=== PATIENT | male | born 1965 | race Caucasian/White ===

== ENCOUNTER → 2017-01-18 | Outpatient (CLI) | payer BC ==
[~2017-01-18] MED LIST: AMLO2.5T PO; ASPI81TA28 PO; ATV5 PO; CRS/10 PO; FLUO20CA35 PO; GABA-113 PO; LISI20TA3 PO; LORA-741 PO; LSN40 PO; METH1TAB81 PO; NTRGSL/4 UT; PANT40TA PO; PRAS1TAB6 PO; TPRSR25 PO; TRAM-10 PO
--- NOTE | 2017-01-18 09:38 | DIAGNOSTIC IMAGING REPORT ---
TESTICULAR ULTRASOUND HISTORY: Pain RIGHT TESTICULAR PAIN COMPARISON: None. FINDINGS: Right testis: Maximum dimension 4.1 cm. Normal vascular flow. Several small epididymal cyst. Left testis: Maximum dimension 3.9 cm. Normal vascular flow. Several small epididymal cyst. IMPRESSION: Normal testicular ultrasound. Electronically signed by: Ankit Hill M.D. 01/18/2017 9:37 AM Dictated Date/Time: 01/18/2017 9:36 AM
== END | disposition home or self-care (01) ==
LOC: C.ULTRBC 09:06
PROVIDERS: ATTEND Family Medicine
DX: N50.811 Right testicular pain (principal)

== ENCOUNTER 2017-04-14 22:52 | Emergency (ER) | payer BC ==
[~2017-04-14] VITALS: Ht 167.6 cm; Wt 79.6 kg
[~2017-04-14 22:52] MED LIST changes: -AMLO2.5T PO; -CRS/10 PO; -LORA-741 PO; -LSN40 PO; -METH1TAB81 PO; -NTRGSL/4 UT; -PANT40TA PO; -TRAM-10 PO
[2017-04-14 23:03] VITALS: TEMP 36.7; Ht 167.6 cm; Wt 79.6 kg
[2017-04-14] MEDS ORDERED: KETOROLAC TROMETHAMINE 30 MG/ML VIAL IV STA (23:27)
[2017-04-14] MEDS ORDERED: HYDROmorphone INJ 1 MG/ML SYR IV STA (23:27)
--- NOTE | 2017-04-14 23:32 | EMERGENCY ROOM VISIT NOTE ---
History Report prepared by Cosme: Silvina Matias Under the Supervision of: Dr. Lina Blancas D.O. First contact with patient: 23:09 Chief Complaint: BACK PAIN Stated Complaint: PAIN IN LOWER RIGHT BACK/KIDNEY History of Present Illness The patient is a 51 year old male who presents to the Emergency Room with complaints of right lower back pain starting 4 days ago and worsening tonight. He rates a pain intensity of 8-9/10. He has worsening pain with certain positions and with palpation. He has some pain relief with lying down flat. He notes pain radiation to the testicles. He had similar pain last week and he was found to have cysts in his testicles through ultrasound but the ultrasound was otherwise normal. He has been taking Tramadol and Lorazepam with some relief. Tonight, he started having some tingling in his right leg. He has a history of sciatica but denies any similar symptoms. He has a history of herniated discs in the back and coronary artery stents. He did some yard work over the weekend but denies any injuries. He denies nausea, vomiting, urinary symptoms, trouble with bowel movements, or any other complaints. Source of History: patient Onset: 4 days ago Position: back (lower) Symptom Intensity: 8-9/10 Timing: worsening Modifying Factors (Worsening): other (certain positions and palpation) Modifying Factors (Relieving): other (lying down flat; Tramadol and Lorazepam with some relief) Associated Symptoms: No nausea, No urinary symptoms, No vomiting Review of Systems See HPI for pertinent positives & negatives. A total of 10 systems reviewed and were otherwise negative. Past Medical & Surgical Medical Problems: (1) Chest pain (2) Elevated lipase (3) Heart disease (4) Herniated cervical disc (5) Herniated disc (6) HTN (hypertension) (7) Pharyngitis (8) Radiculopathy Surgical Problems: (1) History of heart artery stent Family History Cancer Diabetes mellitus Heart disease Hypertension Social History Smoking Status: Never Smoker Marital Status: Housing Status: lives with family Occupation Status: employed Current/Historical Medications Scheduled Amlodipine (Norvasc), 2.5 MG PO HS Aspirin (Aspirin Ec), 81 MG PO QAM Fluoxetine (Prozac), 20 MG PO HS Lisinopril (Lisinopril), 40 MG PO HS Methylprednisolone (Medrol), 4 MG PO HS Pantoprazole (Protonix), 40 MG PO QAM Rosuvastatin Calcium (Crestor), 10 MG PO HS Scheduled PRN Lorazepam (Ativan), 0.5 MG PO BID PRN for Anxiety/Agitation Nitroglycerin (Nitrostat), 0.4 MG UT PRN PRN for Chest Pain Tramadol (Ultram), 50 MG PO Q6H PRN for Pain Allergies Coded Allergies: Penicillins (Verified Allergy, Intermediate, RASH;HIVES, 04/14/17) Sulfa Drugs (Verified Allergy, Intermediate, RASH;HIVES, 04/14/17) Physical Exam Vital Signs Date Time Temp Pulse Resp B/P Pulse Ox O2 Delivery O2 Flow Rate FiO2 04/15/17 01:05 68 18 132/90 95 Room Air 04/14/17 23:03 36.7 66 18 149/98 96 Room Air Physical Exam General: Appears uncomfortable on exam. HEENT: Head - normocephalic and atraumatic Pupils are equal, round, and reactive to light. Extraocular eye muscles are intact, and sclera are anicteric. Nose - moist nasal mucosa without discharge. Mouth - moist buccal mucosa. Oropharynx is nonerythematous and there is no tonsillar exudate or edema noted. Neck: Supple; no JVD, nuchal rigidity, cervical lymphadenopathy. Heart: Regular rate and rhythm. There is a normal S1 and S2 with no murmurs, clicks, or gallops appreciated. Lungs: Clear to auscultation bilaterally with no wheezes, rales, or rhonchi. Abdomen: Soft, pain to palpation in the right lower quadrant and right inguinal canal, nondistended, with good bowel sounds. There are no palpable pulsatile masses or hepatosplenomegaly. There is no guarding, rigidity, or rebound noted. Back: Exquisite tenderness with light touch over his right flank, right CVA, and right piriformis muscle. Extremities: No evidence of cyanosis, clubbing, or edema. There are easily palpable peripheral pulses. Skin: warm and dry with good turgor and no rashes. Medical Decision & Procedures Laboratory Results Test 04/14/17 23:20 Urine Color YELLOW Urine Appearance CLEAR (CLEAR) Urine pH 5.0 (4.5-7.5) Urine Specific Gordon 1.032 (1.000-1.030) Urine Protein NEG (NEG) Urine Glucose (UA) NEG (NEG) Urine Ketones NEG (NEG) Urine Occult Blood TRACE (NEG) Urine Nitrite NEG (NEG) Urine Bilirubin NEG (NEG) Urine Urobilinogen NEG (NEG) Urine Leukocyte Esterase NEG (NEG) Urine WBC (Auto) 1-5 /hpf (0-5) Urine RBC (Auto) 0-4 /hpf (0-4) Urine Hyaline Casts (Auto) 1-5 /lpf (0-5) Urine Epithelial Cells (Auto) 5-10 /lpf (0-5) Urine Bacteria (Auto) NEG (NEG) Laboratory results per my review. Medications Administered Medications (Trade) Dose Ordered Sig/Arya Route Start Time Stop Time Status Last Admin Dose Admin Ketorolac Tromethamine (Toradol Inj) 30 mg NOW STAT IV 04/14/17 23:27 04/14/17 23:28 DC 04/14/17 23:37 30 MG Hydromorphone HCl (Dilaudid Inj) 1 mg NOW STAT IV 04/14/17 23:27 04/14/17 23:28 DC 04/14/17 23:37 1 MG Procedure Dilaudid Inj 1 mg IV, Toradol Inj 30 mg IV ED Course 2309: Past medical records reviewed. The patient was evaluated in room B05. A complete history and physical exam was performed. A urine specimen was collected. 2327: Dilaudid Inj 1 mg IV, Toradol Inj 30 mg IV 0010: I reevaluated the patient who feels much better after the Dilaudid and Toradol. He will perform an ambulatory trial. 0024: Upon reevaluation, the patient is resting comfortably. He successfully performed the ambulatory trial. I discussed findings and results with the patient. He verbalized agreement of the treatment plan. He was discharged home. Medical Decision This is a 51 year old patient who presents to the Emergency Room with complaints of right lower back pain. Differential diagnosis includes but is not limited to pyelonephritis, ureteral colic, sciatica, lumbar radiculopathy, low back strain. Urinalysis showed trace blood, no red blood cells, 5-10 epithelial cells, no signs of infection. The patient had no hematuria to suggest a kidney stone. The patient's discomfort was thought to be secondary to musculoskeletal pain as he had easily reproducible pain with even light palpation. The patient does admit that he was doing yard work before the pain started. I suggested that he rest and use NSAIDs over the next 2 days with a full stomach. If the pain persists, he will need follow-up with his PCP. Impression Primary Impression: Right low back pain Scribe Attestation The scribe's documentation has been prepared under my direction and personally reviewed by me in its entirety. I confirm that the note above accurately reflects all work, treatment, procedures, and medical decision making performed by me. Departure Information Dispostion Home / Self-Care Referrals Wale Aguayo D.O. (PCP) Forms HOME CARE DOCUMENTATION FORM, IMPORTANT VISIT INFORMATION Patient Instructions Low Back Pain Self Care, [facility] Additional Instructions Rest. Do not lift greater than 5 pounds. Ibuprofen - 600mg kingsley 6 hours with food for 1-2 days. Continue tramadol as directed. If pain persists, follow up with PCP. Problem Qualifiers Primary Impression: Right low back pain Chronicity: acute Sciatica presence: with sciatica Sciatica laterality: sciatica of right side Qualified Codes: M54.41 - Lumbago with sciatica, right side
[2017-04-14] MEDS ORDERED: LORA-741 PO (23:37)
[2017-04-14] MEDS ORDERED: CRS/10 PO (23:37)
[2017-04-14] MEDS ORDERED: METH1TAB81 PO (23:37)
[2017-04-14] MEDS ORDERED: LSN40 PO (23:37)
[2017-04-14] MEDS ORDERED: TRAM-10 PO (23:37)
[2017-04-14] MEDS ORDERED: PANT40TA PO (23:37)
[2017-04-14] MEDS ORDERED: AMLO2.5T PO (23:37)
[2017-04-14] MEDS ORDERED: NTRGSL/4 UT (23:37)
[2017-04-14 23:40] LABS: URINE APPEARANCE CLEAR (CLEAR); URINE BILIRUBIN NEG (NEG); URINE COLOR YELLOW; URINE NITRITE NEG (NEG); URINE SPECIFIC GRAVITY 1.032 (1.000-1.030); UROBILINOGEN NEG (NEG)
[2017-04-14 23:48] LABS: MANUAL MICROSCOPIC REQUIRED? NO; REVIEW REQ? NO
[2017-04-15 01:05] VITALS: BP 132/90; PULSE 68; O2SAT 95
== END 2017-04-15 01:05 | disposition home or self-care (01) ==
LOC: C.EDB 22:53
DX: M54.41 Lumbago with sciatica, right side (principal); Z95.5 Presence of coronary angioplasty implant and graft; I10 Essential (primary) hypertension; Z80.9 Family history of malignant neoplasm, unspecified; Z83.3 Family history of diabetes mellitus; Z82.49 Family history of ischemic heart disease and other diseases of the circulatory system; Z79.82 Long term (current) use of aspirin; Z79.899 Other long term (current) drug therapy

== ENCOUNTER 2018-01-30 17:06 | Inpatient (IN) | payer BC ==
[2018-01-30] VITALS (12 sets, daily range): BP systolic 114–142; BP diastolic 80–99; PULSE 51–71; TEMP 36.5; O2SAT 93–99; Ht 170.2 cm; Wt 81.6 kg
[~2018-01-30] VITALS: Ht 170.2 cm; Wt 81.6 kg
[~2018-01-30 17:06] MED LIST changes: +AMLO2.5T PO; -ATV5 PO; +CRS/10 PO; -GABA-113 PO; -LISI20TA3 PO; +LORA-741 PO; +METH1TAB81 PO; +PANT40TA PO; -PRAS1TAB6 PO; -TPRSR25 PO; +TRAM-10 PO
[2018-01-30] MEDS ORDERED: ASPIRIN 81 MG CHEW PO STA (17:36)
[2018-01-30] MEDS ORDERED: ONDANSETRON INJ 2 MG/ML 2 ML VIAL IV STA (17:36)
[2018-01-30] MEDS ORDERED: SODIUM CHLORIDE 0.9% 1000ML 1,000 ML IV STA (17:36)
[2018-01-30] MEDS ORDERED: MoRPHine SULFATE 4 MG/ML 1 ML CARP\\VIAL IV PRN (17:45)
[2018-01-30] MEDS ORDERED: NITROGLYCERIN 0.4 MG SL PER TAB CHARGE SL PRN ×2 (17:45→19:30)
--- NOTE | 2018-01-30 17:45 | EMERGENCY ROOM VISIT NOTE ---
History Report prepared by Cosme: Jeanine Khan Under the Supervision of: Dr. Stephon Macdonald D.O. First contact with patient: 17:25 Chief Complaint: CHEST PAIN Stated Complaint: CHEST PAINS Nursing Triage Summary: pt reports midsternal cp that started about 40 min ago denies radiation of pain. pt took nitro X 2 with no jeter in chest pressure . pt to Dr Funk and sent here for futher eval History of Present Illness The patient is a 52 year old male who presents to the Emergency Room with complaints of constant chest pain that began two hours ago. He states that he was sitting at his desk when the chest pain began. He notes the pain is still present. He currently rates his pain an 8/10 in severity. He took two nitroglycerin. It has been 25 minutes since he has taken the last dose of nitroglycerin. He currently rates his pain an 8/10 in severity. He states there is nothing that makes the chest pain better. He took Aspirin last night. He notes a headache and arm weakness. He denies any shortness of breath, leg pain, or leg swelling. He had a cardiac catheterization and cardiac stents four years ago. The last time he has taken nitroglycerin was two years ago. He was seen by his PCP today and had an ECG that appeared abnormal, so he was advised to come the ED for evaluation. He is allergic to Penicillin and Sulfa. He denies any tobacco or alcohol use. He denies any recent travels, hospitalizations, or injuries. Source of History: patient Onset: two hours ago Position: chest Symptom Intensity: 8/10 Timing: constant Associated Symptoms: + headache, + weakness (arm), No SOB Note: He denies any leg pain or swelling. Review of Systems See HPI for pertinent positives & negatives. A total of 10 systems reviewed and were otherwise negative. Past Medical & Surgical Medical Problems: (1) Chest pain (2) Elevated lipase (3) Heart disease (4) Herniated cervical disc (5) Herniated disc (6) HTN (hypertension) (7) Pharyngitis (8) Radiculopathy (9) Unstable angina Surgical Problems: (1) H/O heart artery stent (2) History of heart artery stent (3) Hx of cardiac cath Family History Cancer Diabetes mellitus Heart disease Hypertension Social History Smoking Status: Never Smoker Smokeless Tobacco Use: No Alcohol Use: none Drug Use: none Marital Status: Housing Status: lives with family Occupation Status: employed Current/Historical Medications Scheduled Amlodipine Besylate (Norvasc), 5 MG PO DAILY Aspirin (Aspirin Ec), 81 MG PO QAM Fluoxetine HCl (Fluoxetine HCl), 20 MG PO HS Lisinopril (Lisinopril), 40 MG PO HS Pantoprazole (Pantoprazole Sodium), 40 MG PO QAM Rosuvastatin Calcium (Rosuvastatin Calcium), 10 MG PO HS Scheduled PRN Nitroglycerin (Nitrostat), 0.4 MG UT UD PRN for Chest Pain Tramadol Hcl (Ultram), 50 MG PO Q6H PRN for Pain Allergies Coded Allergies: Penicillins (Verified Allergy, Intermediate, RASH;HIVES, 04/14/17) Sulfa Drugs (Verified Allergy, Intermediate, RASH;HIVES, 04/14/17) Physical Exam Vital Signs Date Time Temp Pulse Resp B/P (MAP) Pulse Ox O2 Delivery O2 Flow Rate FiO2 01/30/18 17:43 56 20 121/87 98 Room Air 01/30/18 17:40 57 01/30/18 17:30 98 Room Air 01/30/18 17:30 98 Room Air 01/30/18 17:10 36.5 57 20 127/80 98 Room Air Physical Exam GENERAL: Patient is awake, alert, and in no acute distress. Patient is resting comfortably and showing no signs of anxiety EYES: The conjunctivae are clear. The pupils are round and reactive. EARS, NOSE, MOUTH AND THROAT: The nose is without any evidence of any deformity. Mucous membranes are moist tongue is midline NECK: The neck is nontender and supple. RESPIRATORY: Normal respiratory effort is noted there is no evidence of wheezing rhonchi or rales CARDIOVASCULAR: Regular rate and rhythm noted there no murmurs rubs or gallops normal S1 normal S2 GASTROINTESTINAL: The abdomen is soft. Bowel sounds are present in all quadrants. Abdomen is nontender MUSCULOSKELETAL/EXTREMITIES: There is no evidence of gross deformity full range of motion is noted in the hips and shoulders SKIN: There is no obvious evidence of any rash. There are no petechiae, pallor or cyanosis noted. NEUROLOGIC: Patient is awake alert and oriented x3. Medical Decision & Procedures ER Provider Diagnostic Interpretation: Radiology results as stated below per my review and radiologist interpretation: CHEST ONE VIEW PORTABLE HISTORY: 52 years-old Male CHEST PAIN acute atypical chest pain COMPARISON: Chest radiograph 10/28/2014 TECHNIQUE: Portable AP view of the chest FINDINGS: Cardiomediastinal and hilar silhouettes are within normal limits. There is no pneumothorax, pleural effusion, focal airspace consolidation or overt pulmonary edema. The bones of the chest appear grossly intact. Degenerative changes noted within the shoulders and spine. IMPRESSION: No acute process. The above report was generated using voice recognition software. It may contain grammatical, syntax or spelling errors. Electronically signed by: Tu Lebron M.D. 01/30/2018 6:23 PM Dictated Date/Time: 01/30/2018 6:22 PM Laboratory Results 01/30/18 17:33 Red Blood Count 5.42, Mean Corpuscular Volume 85.4, Mean Corpuscular Hemoglobin 29.7, Mean Corpuscular Hemoglobin Concent 34.8, Mean Platelet Volume 9.3, Neutrophils (%) (Auto) 66.2, Lymphocytes (%) (Auto) 24.4, Monocytes (%) (Auto) 7.3, Eosinophils (%) (Auto) 1.4, Basophils (%) (Auto) 0.5, Neutrophils # (Auto) 4.14, Lymphocytes # (Auto) 1.53, Monocytes # (Auto) 0.46, Eosinophils # (Auto) 0.09, Basophils # (Auto) 0.03 01/30/18 17:33 Test 01/30/18 17:33 01/30/18 17:39 White Blood Count 6.26 K/uL (4.8-10.8) Red Blood Count 5.42 M/uL (4.7-6.1) Hemoglobin 16.1 g/dL (14.0-18.0) Hematocrit 46.3 % (42-52) Mean Corpuscular Volume 85.4 fL (80-100) Mean Corpuscular Hemoglobin 29.7 pg (25-34) Mean Corpuscular Hemoglobin Concent 34.8 g/dl (32-36) Platelet Count 148 K/uL (130-400) Mean Platelet Volume 9.3 fL (7.4-10.4) Neutrophils (%) (Auto) 66.2 % Lymphocytes (%) (Auto) 24.4 % Monocytes (%) (Auto) 7.3 % Eosinophils (%) (Auto) 1.4 % Basophils (%) (Auto) 0.5 % Neutrophils # (Auto) 4.14 K/uL (1.4-6.5) Lymphocytes # (Auto) 1.53 K/uL (1.2-3.4) Monocytes # (Auto) 0.46 K/uL (0.11-0.59) Eosinophils # (Auto) 0.09 K/uL (0-0.5) Basophils # (Auto) 0.03 K/uL (0-0.2) RDW Standard Deviation 40.0 fL (36.4-46.3) RDW Coefficient of Variation 12.8 % (11.5-14.5) Immature Granulocyte % (Auto) 0.2 % Immature Granulocyte # (Auto) 0.01 K/uL (0.00-0.02) Prothrombin Time 10.4 SECONDS (9.0-12.0) Prothromb Time International Ratio 1.0 (0.9-1.1) Activated Partial Thromboplast Time 25.7 SECONDS (21.0-31.0) Partial Thromboplastin Ratio 1.0 Anion Gap 5.0 mmol/L (3-11) Est Creatinine Clear Calc Drug Dose 75.8 ml/min Estimated GFR () 91.2 Estimated GFR (Non- 78.7 BUN/Creatinine Ratio 14.0 (10-20) Calcium Level 8.5 mg/dl (8.5-10.1) Total Bilirubin 0.6 mg/dl (0.2-1) Direct Bilirubin 0.2 mg/dl (0-0.2) Aspartate Amino Transf (AST/SGOT) 18 U/L (15-37) Alanine Aminotransferase (ALT/SGPT) 40 U/L (12-78) Alkaline Phosphatase 68 U/L (45-117) Total Creatine Kinase 151 U/L (39-308) Creatine Kinase MB 0.9 ng/ml (0.5-3.6) Creatine Kinase MB Ratio 0.6 (0-3.0) Total Protein 7.2 gm/dl (6.4-8.2) Albumin 4.1 gm/dl (3.4-5.0) Lipase 165 U/L (73-393) Bedside Troponin I < 0.030 ng/ml (0-0.045) Laboratory results per my review. Medications Administered Medications (Trade) Dose Ordered Sig/Arya Route Start Time Stop Time Status Last Admin Dose Admin Aspirin (Aspirin Chew) 324 mg NOW STAT PO 01/30/18 17:36 01/30/18 17:38 DC 01/30/18 17:47 324 MG Morphine Sulfate (MoRPHine SULFATE INJ) 4 mg Q15M PRN IV 01/30/18 17:45 02/13/18 17:44 01/30/18 17:48 4 MG Ondansetron HCl (Zofran Inj) 4 mg NOW STAT IV 01/30/18 17:36 01/30/18 17:38 DC 01/30/18 17:48 4 MG Sodium Chloride 1,000 ml @ 999 mls/hr Q1H1M STAT IV 01/30/18 17:36 01/30/18 18:36 DC 01/30/18 17:47 999 MLS/HR Nitroglycerin (Nitrostat Tab) 0.4 mg Q5M PRN SL 01/30/18 17:45 03/01/18 17:44 01/30/18 17:48 0.4 MG Heparin Sodium (Porcine) (Heparin Iv Bolus) 5,000 unit ONE ONCE IV 01/30/18 19:15 01/30/18 19:16 DC 01/30/18 19:16 5,000 UNIT ECG Per My Interpretation Indication: chest pain Rate (beats per minute): 57 Rhythm: sinus bradycardia Findings: ST depression (Inferior and Lateral), T-wave inversion (Lateral) Comparison ECG Date: Changes are new compared to 10/29/2017 ED Course 1728: The patient was evaluated in room A11A. A complete history and physical examination were performed. 1736: Ordered NSS 1,000 ml @ 999 mls/hr IV, Zofran 4 mg IV, and Aspirin 324 mg PO 1745: Ordered Nitroglycerin 0.4 mg SL and Morphine Sulfate 4 mg IV 174: I spoke with Dr. Mejía, cardiology. We discussed the patients case. The patient will be further evaluated. 1824: I reassessed the patient at this time. He is resting comfortably. I discussed the results and treatment plan with the patient. I answered all pertaining questions that he had. He expressed understanding and verbalized agreement. The patient will be further evaluated. 183: I spoke with Dr. Gage Coy, [facility] hospitalist. We discussed the patient's case. The patient will be evaluated by the [facility] for further management. Medical Decision Prior records/ancillary studies reviewed. Triage Nursing notes reviewed. Additional history obtained from the patient's significant other. The patient's history was concerning for chest pain. Differential diagnosis: Etiologies such as cardiac ischemia, aortic dissection, pulmonary embolism, pneumonia, pneumothorax, musculoskeletal, infections, pericarditis, myocarditis , esophageal rupture, gastrointestinal, as well as others were entertained. The patient is a 52-year-old male who presented to the emergency department for chest discomfort. The patient has pain that radiates to both upper extremities. He describes a heaviness in both upper extremities. The patient has a cardiac history and has had stents in his coronary arteries in approximately 2013. The patient took nitroglycerin prior to arrival which did not resolve his pain. He was seen by his primary corn breeder and was sent to the emergency department for changes on his EKG. The patient was treated with aspirin and nitroglycerin morphine and IV fluids in the emergency department. His pain did not significantly improve. I discussed his case with [facility] corn bre[facility] who evaluated the patient in the emergency department. Despite his pain not improving his EKG started to normalize. This was felt to be consistent with dynamic EKG changes. For this reason the on- call lining vamper was also asked to evaluate the patient. I discussed this case with the [facility] hospital[facility]. Once the patient was evaluated by the lining vamper he was felt to be a candidate for the Quality Assurance Manager since he had ongoing pain and dynamic EKG changes. He was given an IV heparin bolus in the emergency department after discussion with the primary lining vamper. I discussed patient's condition with him. I discussed his laboratory and radiographic studies with him. Medication Reconcilliation Current Medication List: was personally reviewed by me Blood Pressure Screening Patient's blood pressure: Normal blood pressure Consults Time Called: 1737 Consulting Physician: Dr. Mejía, cardiology Returned Call: [phone] Mejía, cardiology. We discussed the patients case. The patient will be further evaluated. Additional Consults: Time Called: 1814 Consulted Physician: Dr. Gage Coy [facility] hospitalist Returned Call: [phone] Additional Comments: I spoke with Dr. Gage Coy, [facility] hospitalist. We discussed the patient' s case. The patient will be evaluated by the [facility] for further management. Impression Primary Impression: Unstable angina Additional Impressions: Substernal precordial chest pain Abnormal ECG Scribe Attestation The scribe's documentation has been prepared under my direction and personally reviewed by me in its entirety. I confirm that the note above accurately reflects all work, treatment, procedures, and medical decision making performed by me. Departure Information Dispostion Being Evaluated By Hospitalist Referrals Wale Aguayo D.O. (PCP) Patient Instructions [facility] Problem Qualifiers
[2018-01-30 17:53] LABS: BASO % 0.5 %; BASO ABS # 0.03 K/uL (0-0.2); EOS % 1.4 %; EOS ABS # 0.09 K/uL (0-0.5); HEMATOCRIT 46.3 % (42-52); HEMOGLOBIN 16.1 g/dL (14.0-18.0); IG# 0.01 K/uL (0.00-0.02); LYMPH % 24.4 %; LYMPH ABS # 1.53 K/uL (1.2-3.4); MEAN CELL VOLUME 85.4 fL (80-100); MEAN CORPUSCULAR HEMOGLOBIN 29.7 pg (25-34); MEAN CORPUSCULAR HGB CONC 34.8 g/dl (32-36); MEAN PLATELET VOLUME 9.3 fL (7.4-10.4); MONO % 7.3 %; MONO ABS # 0.46 K/uL (0.11-0.59); NEUT % 66.2 %; NEUT ABS # 4.14 K/uL (1.4-6.5); PLATELET COUNT 148 K/uL (130-400); RED CELL DISTRIBUTION WIDTH CV 12.8 % (11.5-14.5); WHITE BLOOD COUNT 6.26 K/uL (4.8-10.8)
[2018-01-30 18:05] LABS: PTT PATIENT 25.7 SECONDS (21.0-31.0)
[2018-01-30] MEDS ORDERED: ROSU10TA35 PO (18:07)
[2018-01-30] MEDS ORDERED: PANT40TA2 PO (18:07)
[2018-01-30] MEDS ORDERED: FLUO20CA36 PO (18:07)
[2018-01-30] MEDS ORDERED: ULT/50 PO (18:07)
[2018-01-30] MEDS ORDERED: AMLO2.5T PO (18:07)
[2018-01-30 18:18] LABS: ALBUMIN 4.1 gm/dl (3.4-5.0); CALCIUM 8.5 mg/dl (8.5-10.1); CREATININE 1.09 mg/dl (0.60-1.40); POTASSIUM 3.7 mmol/L (3.5-5.1)
[2018-01-30 18:24] LABS: CKMB 0.9 ng/ml (0.5-3.6); TOTAL PROTEIN 7.2 gm/dl (6.4-8.2)
--- NOTE | 2018-01-30 18:24 | DIAGNOSTIC IMAGING REPORT ---
CHEST ONE VIEW PORTABLE HISTORY: 52 years-old Male CHEST PAIN acute atypical chest pain COMPARISON: Chest radiograph 10/28/2014 TECHNIQUE: Portable AP view of the chest FINDINGS: Cardiomediastinal and hilar silhouettes are within normal limits. There is no pneumothorax, pleural effusion, focal airspace consolidation or overt pulmonary edema. The bones of the chest appear grossly intact. Degenerative changes noted within the shoulders and spine. IMPRESSION: No acute process. The above report was generated using voice recognition software. It may contain grammatical, syntax or spelling errors. Electronically signed by: Tu Lebron M.D. 01/30/2018 6:23 PM Dictated Date/Time: 01/30/2018 6:22 PM
[2018-01-30] MEDS ORDERED: HEPARIN SOD (PORCINE) 1000 UNIT/ML 10 ML VIAL IV ONE (19:15)
[2018-01-30] MEDS ORDERED: SODIUM CHLORIDE 0.9% 1000ML 1,000 ML IV SCH (19:20)
[2018-01-30] MEDS ORDERED: NiCARDipine HCL INJ 2.5 MG/ML 10 ML AMP ONE (19:28)
[2018-01-30] MEDS ORDERED: MIDAZOLAM HCL 1 MG/ML 2ML VIAL ONE (19:29)
[2018-01-30] MEDS ORDERED: NITROGLYCERIN/D5W 100MCG/ML 20ML SYR ONE (19:29)
[2018-01-30] MEDS ORDERED: FENTANYL CITRATE INJ 50 MCG/1 ML 2 ML VIAL ONE (19:29)
[2018-01-30] MEDS ORDERED: NITROGLYCERIN 0.4 MG SL PER TAB CHARGE UT PRN (19:30)
[2018-01-30] MEDS ORDERED: MAGNESIUM HYDROXIDE SUSP 30 ML UDC PO PRN (19:30)
[2018-01-30] MEDS ORDERED: POLYETHYLENE (MIRALAX) 17 GM PACK PO PRN (19:30)
[2018-01-30] MEDS ORDERED: ONDANSETRON INJ 2 MG/ML 2 ML VIAL IV PRN (19:30)
[2018-01-30] MEDS ORDERED: TRAMADOL HCL 50 MG TAB PO PRN (19:30)
[2018-01-30] MEDS ORDERED: ACETAMINOPHEN 325 MG TAB PO PRN (19:30)
[2018-01-30] MEDS ORDERED: ENOXAPARIN 40 MG/0.4 ML SYR SC SCH (19:30)
[2018-01-30] MEDS ORDERED: NITROGLYCERIN 2% OINTMENT 30GM TUBE EXT SCH (19:30)
[2018-01-30] MEDS ORDERED: ZOLPIDEM TARTRATE 5 MG TAB PO PRN ×2 (19:30)
[2018-01-30] MEDS ORDERED: ALUMINUM/MAGNESIUM/SIMETH (MAALOX MAX) 30 ML UDC PO PRN (19:30)
[2018-01-30] MEDS ORDERED: LIDOCAINE HCL 1% 20 ML VIAL ONE (19:44)
--- NOTE | 2018-01-30 20:04 | History and Physical ---
History & Physical Date & Time of Service: Jan 30, 2018 at 19:47 Chief Complaint: Chest Pains Primary Care Physician: Wale Aguayo D.O. History of Present Illness Source: patient 52 years old man with PMHx of HTN, Dyslipidemia, anxiety, chronic pain syndrome , GERD and CAD S/P previous cardiac cath 2013 3 stents in OM1 and one QUANG stent in LAD. patient was seen recently by his aircraft cleaning supervisor Dr. Haywood and has a stress test done which was questionable as there was some changes. patient developed substernal chest pain squeezing/heaviness in character, 10/10 in intensity. Refer to both arms. No relieving or aggravating factors. Associated with headache, no dizziness, no blurring of vision, no shortness of breath or diaphoresis.. Patient presented to the ED for further evaluation and management, he was found to have some EKG changes. Pain was persistent with no improvement.. Seen by in ED who recommended considering cardiac cath. Dr. Doyle came and evaluated the patient, code heart was called and patient will be taken to cardiac cath. Family History Cancer Diabetes mellitus Heart disease Hypertension Social History Smoking Status: Never Smoker Smokeless Tobacco Use: No Drug Use: none Marital Status: Occupational Status: employed Immunizations History of Influenza Vaccine: No History of Tetanus Vaccine?: Yes Tetanus Immunization Date: Jul 29, 2009 History of Pneumococcal: No History of Hepatitis B Vaccine: No Allergies Coded Allergies: Penicillins (Verified Allergy, Intermediate, RASH;HIVES, 04/14/17) Sulfa Drugs (Verified Allergy, Intermediate, RASH;HIVES, 04/14/17) Home Medications Scheduled Amlodipine Besylate (Norvasc), 5 MG PO DAILY Aspirin (Aspirin Ec), 81 MG PO QAM Fluoxetine HCl (Fluoxetine HCl), 20 MG PO HS Lisinopril (Lisinopril), 40 MG PO HS Pantoprazole (Pantoprazole Sodium), 40 MG PO QAM Rosuvastatin Calcium (Rosuvastatin Calcium), 10 MG PO HS Scheduled PRN Nitroglycerin (Nitrostat), 0.4 MG UT UD PRN for Chest Pain Tramadol Hcl (Ultram), 50 MG PO Q6H PRN for Pain Review of Systems Review of system Constitutional: No fever / no chills / no sweats / no weakness / no fatigue Eyes: no blurring of vision / no eye pain / no discharge / no redness ENT: no hearing loss / no epistaxis /no swallowing problems Respiratory: no cough / no wheezing / no SOB / no hemoptysis Cardiovascular: Chest pain as mentioned in HPI / no lower extremity edema / no palpitation Abdomen: no pain / no nausea / no vomiting / no constipation Musculoskeletal: no joint pain / no muscle pain / no joint swelling Genitourinary: no dysuria / no incontinence / no urinary retention Neurologic: no focal weakness / no numbness/tingling / no ataxia Psychiatric: no depression symptoms / no anxiety / no insomnia Endocrine: no excessive thirst / no excessive urination Hematologic: no abnormal bleeding / no bruising / no LN swelling Skin: No rash / no pallor Physical Exam Vital Signs Date Time Temp Pulse Resp B/P (MAP) Pulse Ox O2 Delivery O2 Flow Rate FiO2 01/30/18 17:43 56 20 121/87 98 Room Air 01/30/18 17:40 57 01/30/18 17:30 98 Room Air 01/30/18 17:30 98 Room Air 01/30/18 17:10 36.5 57 20 127/80 98 Room Air Physical examination General patient appears to be comfortable, not in acute distress HEENT: Atraumatic , normocephalic /no jaundice /no pallor /anicteric /no dry mucous membrane /normal external ear inspection Neck: Supple /no swelling /central trach Heart: S1/S2 normal/regular rate and rhythm/no gallop /no rub /no murmur Lungs: Clear to auscultation bilaterally/normal chest with expansion/no rhonchi/ no rales/no wheezing/no use of accessory muscles of respiration Abdomen: Soft/nontender/no guarding/no rebound/no organomegaly/no pulsatile mass Musculoskeletal: No swelling/no edema/no tenderness/normal range of motion Neuro exam: Awake alert oriented 3/cranial nerves II through XII appear to be intact/sensation intact/moves all extremities/no abnormal movements Psychiatric evaluation: No depressed mood/normal affect Skin: No rash on exposed skin area/no erythema Extremity: Normal pulse/no pitting edema/no clubbing or cyanosis Endocrine/lymphatic: No obvious lymphadenopathy /no lymphedema Diagnostics Laboratory Results Results Past 24 Hours Test 01/30/18 17:33 01/30/18 17:39 01/30/18 19:20 Range/Units White Blood Count 6.26 4.8-10.8 K/uL Red Blood Count 5.42 4.7-6.1 M/uL Hemoglobin 16.1 14.0-18.0 g/dL Hematocrit 46.3 42-52 % Mean Corpuscular Volume 85.4 80-100 fL Mean Corpuscular Hemoglobin 29.7 25-34 pg Mean Corpuscular Hemoglobin Concent 34.8 32-36 g/dl Platelet Count 148 130-400 K/uL Mean Platelet Volume 9.3 7.4-10.4 fL Neutrophils (%) (Auto) 66.2 % Lymphocytes (%) (Auto) 24.4 % Monocytes (%) (Auto) 7.3 % Eosinophils (%) (Auto) 1.4 % Basophils (%) (Auto) 0.5 % Neutrophils # (Auto) 4.14 1.4-6.5 K/uL Lymphocytes # (Auto) 1.53 1.2-3.4 K/uL Monocytes # (Auto) 0.46 0.11-0.59 K/uL Eosinophils # (Auto) 0.09 0-0.5 K/uL Basophils # (Auto) 0.03 0-0.2 K/uL RDW Standard Deviation 40.0 36.4-46.3 fL RDW Coefficient of Variation 12.8 11.5-14.5 % Immature Granulocyte % (Auto) 0.2 % Immature Granulocyte # (Auto) 0.01 0.00-0.02 K/uL Prothrombin Time 10.4 9.0-12.0 SECONDS Prothromb Time International Ratio 1.0 0.9-1.1 Activated Partial Thromboplast Time 25.7 21.0-31.0 SECONDS Partial Thromboplastin Ratio 1.0 Sodium Level 139 136-145 mmol/L Potassium Level 3.7 3.5-5.1 mmol/L Chloride Level 105 98-107 mmol/L Carbon Dioxide Level 29 21-32 mmol/L Anion Gap 5.0 3-11 mmol/L Blood Urea Nitrogen 15 7-18 mg/dl Creatinine 1.09 0.60-1.40 mg/dl Est Creatinine Clear Calc Drug Dose 75.8 ml/min Estimated GFR () 91.2 Estimated GFR (Non- 78.7 BUN/Creatinine Ratio 14.0 10-20 Random Glucose 93 70-99 mg/dl Calcium Level 8.5 8.5-10.1 mg/dl Total Bilirubin 0.6 0.2-1 mg/dl Direct Bilirubin 0.2 0-0.2 mg/dl Aspartate Amino Transf (AST/SGOT) 18 15-37 U/L Alanine Aminotransferase (ALT/SGPT) 40 12-78 U/L Alkaline Phosphatase 68 45-117 U/L Total Creatine Kinase 151 39-308 U/L Creatine Kinase MB 0.9 0.5-3.6 ng/ml Creatine Kinase MB Ratio 0.6 0-3.0 Total Protein 7.2 6.4-8.2 gm/dl Albumin 4.1 3.4-5.0 gm/dl Lipase 165 73-393 U/L Bedside Troponin I < 0.030 0-0.045 ng/ml Impression Assessment and Plan 52 years old man with PMHx of HTN, Dyslipidemia, anxiety, chronic pain syndrome , GERD and CAD S/P previous cardiac cath 2013, had 3 QAUNG stents in OM1 and one QUANG stent in LAD. patient was seen recently by his aircraft cleaning supervisor Dr. Haywood and has a stress test done which was questionable as there was some changes. Presented with unstable angina , will go for cardiac catheter. Assessment Unstable angina with persistent pain prompting urgent cardiac catheterization History of CAD status post multiple stents as mentioned above GERD Hypertension Dyslipidemia Anxiety Chronic pain syndrome Multiple cervical DJD plan: admit to telemetry, unless aircraft cleaning supervisor after cardiac cath decides to put patient in ICU obtain serial cardiac enz NTG SL/topical prn CP consult aircraft cleaning supervisor appreciated, Dr. Mejía and Dr. Doyle both agreed that he will need Urgent cardiac cath pain management Check hemoglobin A1c/lipids to stratify patient risk factors repeat EKG prn chest pain Heparin for DVT prophylax Resuscitation Status VTE Prophylaxis Will order VTE Prophylaxis: Yes
[2018-01-30] MEDS ORDERED: NITROGLYCERIN/D5W 100 MCG/ML BTL ONE (20:10)
[2018-01-30] MEDS ORDERED: HEPARIN 25000 UNIT/500 ML D5W ONE (20:10)
--- NOTE | 2018-01-30 20:29 | Cardiology Consultation ---
Cardiology Consultation Date of Consultation: Jan 30, 2018. Requesting Physician: Torres Reason for Consultation: Chest Pain Pt evaluation today including: conversation w/ patient, conversation w/ family , physical exam, chart review, lab review, review of studies, conversation w/ center lead consultant, review of inpatient medication list, conversation w/ attending History of Present Illness The patient is a 52-year-old gentleman with history of coronary artery disease having previously undergone percutaneous intervention involving the circumflex and LAD 4 years ago. Recently the patient has been having some symptoms of exertional chest pain. This is been progressive over a period of several weeks. On an outpatient basis he did undergo exercise stress testing which was abnormal. Patient was only able to achieve 69 percent of his maximum predicted heart rate but did have some symptoms of chest discomfort and EKG changes. His medical regimen was adjusted and he was scheduled for follow-up. Today the patient was at work when he developed severe substernal chest discomfort. He recognized the symptoms as similar to his angina but much more severe. This also occurred without exertion. He had involvement of both arms which felt heavy and uncomfortable. He had some mild dyspnea but no pleuritic chest discomfort. The chest pain was not positional. It did not improve with sublingual nitroglycerin. He also developed a headache the onset of which was of unclear duration. He reports having had several headaches over the past few weeks as well. He believes that the current symptoms of chest discomfort is distinct from that which occurred prior to his previous intervention. That intervention was subsequent to an abnormal stress test which was performed in anticipation of neck surgery. In general the patient is an active individual who was accustomed to moderate exercise. Until the last 3 weeks he generally did not have symptoms of limiting dyspnea or chest discomfort. He has not complained recently of dizziness or lightheadedness. He has not report having had any syncopal episodes. Past Medical/Surgical History Hypertension Coronary artery disease status post percutaneous intervention involving the left circumflex and LAD at [facility] Cervical and lumbar spine disease Past surgical history: Lumbar and cervical spine surgery Family History Cancer Diabetes mellitus Heart disease Hypertension No premature cardiac disease Social History Smoking Status: Never Smoker History of Alcohol Use: No Currently employed as the chief administrative officer at [employer] Review of Systems No recent constitutional symptoms such as fevers or chills All Other Systems: Reviewed and Negative Allergies Coded Allergies: Penicillins (Verified Allergy, Intermediate, RASH;HIVES, 5/25/17) Sulfa Drugs (Verified Allergy, Intermediate, RASH;HIVES, 04/14/17) Medications Current Inpatient Medications Medications (Trade) Dose Ordered Sig/Arya Route Start Time Stop Time Status Last Admin Dose Admin Morphine Sulfate (MoRPHine SULFATE INJ) 4 mg Q15M PRN IV 01/30/18 17:45 02/13/18 17:44 01/30/18 17:48 4 MG Nitroglycerin (Nitrostat Tab) 0.4 mg Q5M PRN SL 01/30/18 17:45 03/01/18 17:44 01/30/18 17:48 0.4 MG Amlodipine Besylate (Norvasc Tab) 5 mg DAILY PO 01/31/18 09:00 03/02/18 08:59 Aspirin (Ecotrin Tab) 81 mg QAM PO 01/31/18 09:00 03/02/18 08:59 Fluoxetine HCl (Prozac Cap) 20 mg HS PO 01/30/18 21:00 03/01/18 20:59 Pantoprazole Sodium (Protonix Tab) 40 mg QAM PO 01/31/18 09:00 03/02/18 08:59 UNV Rosuvastatin Calcium (Crestor Tab) 10 mg HS PO 01/30/18 21:00 03/01/18 20:59 Tramadol HCl (Ultram Tab) 50 mg Q6H PRN PO 01/30/18 19:30 03/01/18 19:29 Enoxaparin Sodium (Lovenox Inj) 40 mg Q24H SC 01/30/18 19:30 03/01/18 19:29 UNV Sodium Chloride 1,000 ml @ 75 mls/hr [id number] IV 01/30/18 19:20 03/01/18 19:19 UNV Acetaminophen (Tylenol Tab) 650 mg Q4H PRN PO 01/30/18 19:30 03/01/18 19:29 Al Hydrox/Mg Hydrox/Simethicone (Maalox Max Susp) 15 ml Q4H PRN PO 01/30/18 19:30 03/01/18 19:29 Magnesium Hydroxide (Milk Of Magnesia Susp) 30 ml Q12H PRN PO 01/30/18 19:30 03/01/18 19:29 Zolpidem Tartrate (Ambien Tab) 5 mg HSZ PRN PO 01/30/18 19:30 03/01/18 19:29 Ondansetron HCl (Zofran Inj) 4 mg Q6H PRN IV 01/30/18 19:30 03/01/18 19:29 Nitroglycerin (Nitrostat Tab) 0.4 mg UD PRN SL 01/30/18 19:30 03/01/18 19:29 Nitroglycerin (Nitroglycerin 2% Oint) 1 inch Q6H EXT 01/30/18 19:30 03/01/18 19:29 UNV Polyethylene (Miralax Powder Packet) 17 gm DAILY PRN PO 01/30/18 19:30 03/01/18 19:29 Physical Exam Vital Signs Past 12 Hours Date Time Temp Pulse Resp B/P (MAP) Pulse Ox O2 Delivery O2 Flow Rate FiO2 01/30/18 19:35 51 18 147/93 100 01/30/18 19:00 51 18 147/93 100 Room Air 01/30/18 17:43 56 20 121/87 98 Room Air 01/30/18 17:40 57 01/30/18 17:30 98 Room Air 01/30/18 17:30 98 Room Air 01/30/18 17:10 36.5 57 20 127/80 98 Room Air The patient is alert and oriented. Mood and affect appeared normal. He answered all questions appropriately. HEENT: Pupils are equal and reactive to light and accommodation. Extraocular movements are intact. The sclerae are anicteric. Neuro: Cranial nerves intact Neck: Patient's neck is supple. He has palpable carotid pulses bilaterally without bruits on auscultation. There is no evidence of jugular venous distention. The thyroid is not enlarged. Lungs: Clear to auscultation bilaterally. He has good air movement without use of accessory muscles. No rales wheezes or rhonchi. Cardiac: Heart demonstrates a regular rate and rhythm. Normal S1 and S2. No murmurs on examination. Pulses: The patient has palpable radial pulses bilaterally that are equal in intensity Extremities: There was no evidence of hypoperfusion. There is no cyanosis or clubbing. There is no edema. Skin: I did not appreciate any rashes on examination today. Data Laboratory Results: Last 24 Hours Test 01/30/18 17:33 01/30/18 17:39 White Blood Count 6.26 K/uL Red Blood Count 5.42 M/uL Hemoglobin 16.1 g/dL Hematocrit 46.3 % Mean Corpuscular Volume 85.4 fL Mean Corpuscular Hemoglobin 29.7 pg Mean Corpuscular Hemoglobin Concent 34.8 g/dl Platelet Count 148 K/uL Mean Platelet Volume 9.3 fL Neutrophils (%) (Auto) 66.2 % Lymphocytes (%) (Auto) 24.4 % Monocytes (%) (Auto) 7.3 % Eosinophils (%) (Auto) 1.4 % Basophils (%) (Auto) 0.5 % Neutrophils # (Auto) 4.14 K/uL Lymphocytes # (Auto) 1.53 K/uL Monocytes # (Auto) 0.46 K/uL Eosinophils # (Auto) 0.09 K/uL Basophils # (Auto) 0.03 K/uL RDW Standard Deviation 40.0 fL RDW Coefficient of Variation 12.8 % Immature Granulocyte % (Auto) 0.2 % Immature Granulocyte # (Auto) 0.01 K/uL Prothrombin Time 10.4 SECONDS Prothromb Time International Ratio 1.0 Activated Partial Thromboplast Time 25.7 SECONDS Partial Thromboplastin Ratio 1.0 Sodium Level 139 mmol/L Potassium Level 3.7 mmol/L Chloride Level 105 mmol/L Carbon Dioxide Level 29 mmol/L Anion Gap 5.0 mmol/L Blood Urea Nitrogen 15 mg/dl Creatinine 1.09 mg/dl Est Creatinine Clear Calc Drug Dose 75.8 ml/min Estimated GFR () 91.2 Estimated GFR (Non- 78.7 BUN/Creatinine Ratio 14.0 Random Glucose 93 mg/dl Calcium Level 8.5 mg/dl Total Bilirubin 0.6 mg/dl Direct Bilirubin 0.2 mg/dl Aspartate Amino Transf (AST/SGOT) 18 U/L Alanine Aminotransferase (ALT/SGPT) 40 U/L Alkaline Phosphatase 68 U/L Total Creatine Kinase 151 U/L Creatine Kinase MB 0.9 ng/ml Creatine Kinase MB Ratio 0.6 Total Protein 7.2 gm/dl Albumin 4.1 gm/dl Lipase 165 U/L Bedside Troponin I < 0.030 ng/ml Imaging: Chest x-ray did not demonstrate any acute cardiopulmonary disease. Mediastinal silhouette was normal EKG: Normal sinus rhythm with some minor ST segment depressions in the lateral limb leads and precordial leads Telemetry reviewed: No arrhythmia Assessment & Plan 1. Chest pain: Patient's symptoms are reminiscent of his prior exertional angina but more severe. He has not responded to morphine or sublingual nitroglycerin. His initial cardiac markers were normal but this was sampled early in his period of symptoms. EKG is abnormal and changed from prior but not definitively diagnostic of an acute coronary syndrome. Alternative etiologies could include pulmonary embolus or possibly aortic dissection. He is not markedly hypertensive or hypoxic. His mediastinal silhouette looks normal. He has no pleuritic chest pain symptoms is not tachycardic. Unfortunately, I do not think we can be confident that this is not a coronary syndrome given the persistent nature of his symptoms. He has a history of circumflex disease in this is poorly represented on a standard EKG. I did suggest that the patient undergo urgent coronary angiography for diagnosis. I explained the risks benefits and alternatives and he is agreeable. Patient is currently on prasugrel. He was administered aspirin. Was administered sublingual nitroglycerin would consider an infusion. He will undergo heparin bolus and we will proceed to the catheterization suite.
--- NOTE | 2018-01-30 20:36 | Pre Sedation Assessment ---
Pre Sedation Assessment General Date of Sedation: Jan 30, 2018. Vital Signs Past 12 Hours Date Time Temp Pulse Resp B/P (MAP) Pulse Ox O2 Delivery O2 Flow Rate FiO2 01/30/18 20:25 63 16 135/101 (112) 98 Nasal Cannula 4 01/30/18 20:10 62 16 130/94 (106) 98 Nasal Cannula 4 01/30/18 19:35 51 18 147/93 100 01/30/18 19:00 51 18 147/93 100 Room Air 01/30/18 17:43 56 20 121/87 98 Room Air 01/30/18 17:40 57 01/30/18 17:30 98 Room Air 01/30/18 17:30 98 Room Air 01/30/18 17:10 36.5 57 20 127/80 98 Room Air Review Cardiovascular: regular rate, rhythm, no edema Lungs: chest non-tender, lungs clear Pre-Sedation Airway Assessment Smoking Status: Never Smoker Hx of Sleep Apnea: No Hx of difficult intubation: No Short Thick Neck: No Thyro-mental Distance: > 3 Finger Breadths Oral Cavity: WNL Mallampati Classification: Class II ASA Classification: Class III Procedure Planning Contraindications for Sedation: None Current Medications Reviewed: Yes Notes The planned sedation has been discussed with the patient. Informed Consent was obtained. I have identified the patient, determined the appropriateness of sedation and have assessed the patient immediately prior to the procedure. All medicine(s) and interventions are by my order.
--- NOTE | 2018-01-30 20:37 | Post Sedation Assessment ---
Post Sedation Assessment General Date of Sedation Jan 30, 2018. Vital Signs: Vital Signs Past 12 Hours Date Time Temp Pulse Resp B/P (MAP) Pulse Ox O2 Delivery O2 Flow Rate FiO2 01/30/18 20:25 63 16 135/101 (112) 98 Nasal Cannula 4 01/30/18 20:10 62 16 130/94 (106) 98 Nasal Cannula 4 01/30/18 19:35 51 18 147/93 100 01/30/18 19:00 51 18 147/93 100 Room Air 01/30/18 17:43 56 20 121/87 98 Room Air 01/30/18 17:40 57 01/30/18 17:30 98 Room Air 01/30/18 17:30 98 Room Air 01/30/18 17:10 36.5 57 20 127/80 98 Room Air Post Procedure Recovery Score Activity: (2) Moves 4 extremities * Respiration: (2) Deep breath/cough Circulation: (2) +/-20% PreAnes Value Consciousness: (2) Fully Awake Oxygen Saturation: (2) > 92% On Room Air Post Anesthesia Score: 10 Discharge Sedation Level of Care: Fast Track Phase II Post Sedation Plan On clinical assessment, the patient appears to have tolerated the sedation without complications. Patient is recovering as anticipated. Patient will continue to be monitored by nursing and may be discharged when sedation discharge criteria are met per below protocol. Upon Completions of procedure and additional 15 minutes continue every 5 minute vital signs and the P.A.R. score; then discharge to a Phase I or Fast Track to Phase II per the following guidelines: * Discharge Patient to appropriate Phase II area if PAR is 8 or greater or return to pre- procedure baseline. The post - procedure orders will be as directed. * If PAR score is less than 8 or not return to pre-procedure baseline then patient will follow Phase I monitoring till PAR is reached for Phase II. The Phase I may be done in procedure room or may call to secure a Phase I area. * If naloxone or flumazenil are used for reversal, hold in Phase I for an additional 60 -120 minutes before discharge to Phase II. Please call the Sedation Physician to re-evaluate and complete post-note for discharge to Phase II area. Do NOT discharge from procedure sedation or Phase 1 until post- sedation evaluation note is complete by procedure /sedation MD Sedation Discharge Instructions to be given to the patient at discharge to home.
--- NOTE | 2018-01-30 20:45 | Discharge Summary ---
Discharge Summary Date of Service Jan 30, 2018. Discharge Summary Admission Date: Discharge Date: Jan 30, 2018 Discharge Disposition: Acute care facility Principal Diagnosis: unstable angina, left main disease Immunizations: Have You Had Influenza Vaccine: No History of Tetanus Vaccine?: Yes Tetanus Immunization Date: Jul 29, 2009 History of Pneumococcal: No History of Hepatitis B Vaccine: No Hospital Course 52 years old man with PMHx of HTN, Dyslipidemia, anxiety, chronic pain syndrome , GERD and CAD S/P previous cardiac cath 2013, had 3 QUANG stents in OM1 and one QUANG stent in LAD. patient was seen recently by his branch maker Dr. Haywood and has a stress test done which was questionable as there was some changes. Presented with unstable angina , will go for cardiac catheter. Assessment Unstable angina with persistent pain prompting urgent cardiac catheterization History of CAD status post multiple stents as mentioned above GERD Hypertension Dyslipidemia Anxiety Chronic pain syndrome Multiple cervical DJD plan: admit to telemetry, unless branch maker after cardiac cath decides to put patient in ICU obtain serial cardiac enz NTG SL/topical prn CP consult branch maker appreciated, Dr. Mejía and Dr. Doyle both agreed that he will need Urgent cardiac cath pain management Check hemoglobin A1c/lipids to stratify patient risk factors repeat EKG prn chest pain Heparin for DVT prophylax Patient was found to have left main disease and will be transferred to [place] This note was placed for medical documentation purpose H&P was done today as above Total Time Spent: Less than 30 minutes This includes examination of the patient, discharge planning, medication reconciliation, and communication with other providers. Discharge Instructions Please refer to the electronic Patient Visit Report (Discharge Instructions) for additional information.
--- NOTE | 2018-01-30 20:47 | Cardiac Catheterization ---
Procedure Note Procedure Date Jan 30, 2018. Pre-Procedure Diagnosis Acute Coronary Syndrome AUC Score 8 Post-Procedure Diagnosis Severe CAD Procedure(s) Performed Coronary Angiography Propeller T[employer] Salesperson(s) Donn Estimated Blood Loss 15 Medication(s) Fentanyl, Heparin, Nicardipine, Nitroglycerin, Versed, Lidocaine 1% Summary of Findings Indication: ACS, refractory chest pain Access: 6Fr slender right radial artery Catheters: [place] Findings: LM - Short left main LAD - 95+% focal stenosis involving ostial LAD, ostium moderate caliber ramus possibly extending into distal left main. Mid LAD stent is patent with distal luminal irregularities and JOSE 3 flow Circumflex - Moderate caliber vessel, patent stent in OM2, no other significant disease RCA - Dominant, 20-30% mid RCA disease, distal segment disease free Arterial Closure: TR band Summary: 1. Complex, high-grade ostial LAD stenosis involving trifurcation with ramus, circumflex. 2. Patent mid LAD, OM stents Recommendations: Patient hemodynamically stable with improving chest pain on nitroglycerin infusion. With complex disease recommend transfer to [facility] for evaluation for complex PCI vs CABG. Continue on heparin and nitroglycerin infusion while awaiting transfer Hemodynamics Rest Ao: 139/86/109 Final Ao: 157/98/124 LV: -- Recommendations CABG ( or PCI) Specimens None Radiation Exposure (mGy) 904 Contrast (mls) 40 Visi Fluids (cc crystalloids) 115 Drains None Anesthesia Moderate Procedural Complication(s) None Disposition ICU ACC Data Cardiac Status Clinical evaluation leading to the procedure CAD Presntation: Unstable angina Anginal Classification: CCS IV Heart Failure: No, NYHA Class: CCS I Cardiogenic Shock w/in 24Hrs: No Cardiac Arrest w/in 24Hrs: No Imaging studies past 6 months: Yes Stress studies past 6 months: Yes Stress Echocardiogram: Yes - Indeterminant Closure Device Percutaneous Entry Location: Radial Closure Device: Radial Band Recommendations: CABG Intraprocedure Events Significant Dissection: No Perforation: No
[2018-01-30] MEDS ORDERED: ROSUVASTATIN CALCIUM 10 MG TAB PO SCH (21:00)
[2018-01-30] MEDS ORDERED: FLUOXETINE HCL 20 MG CAP PO SCH (21:00)
--- NOTE | 2018-01-30 21:19 | Critical Care Consultation ---
Critical Care Consultation Date of Consultation: Jan 30, 2018. Attending Physician: Leo Pope MD Reason for Consultation: Unstable Angina History of Present Illness Ajith Mancilla is a 52yo male with pmhx of CAD with prior stents in 01/04 (3 stents to OM1 and 1 to LAD), HTN, dyslipidemia, sleep apnea, GERD. Pt was experienced unprovoked chest pain 2 hours [employer] and took his nitroglycerin without relief x 2. Prior use of nitroglycerin was over 2 years ago. He went to his PCPs office , where EKG changes were noted and he was recommended to go to the ED. Pain was similar to prior angina but more severe. Pt chest pain was a 10/10 at arrival in the ED which decreased to a 5/[address] Mejía/ Dr. Doyle called a heart alert in the ED at which time his EKG demonstrated sinus bradycardia, with ST depression in the inferior and lateral leads, in addition lateral T wave inversion. Troponin negative times one. Pt does complain of headache in addition to chest pain. Similiar to the headaches he has been experiencing over the last few weeks. He experienced an uncomfortable heaviness to the bilateral arms, now resolved. However, no shortness of breath, diaphoresis, or radiation to other location. [place] noting, pt had over the last few weeks begun experiencing progressive exertional chest pain for which he was seen by his hospital television rental clerk (Dr. Haywood) for a recent stress test with noted some changes such as; achieving 69% maximum predicted HR, chest pain symptoms, and EKG changes. Pt was taken to the cathode washer where Dr. Doyle noted blockage to the left main that he is unable to stent. Pt has been placed on a Heparin infusion for acute treatment. Continued 10/10 chest pain has called for a nitroglycerin infusion. Pt is to be transferred non-emergently via life flight per Dr. Doyle. Upon arrival to the ICU pt is in good spirits, states he continues with a same headache and chest pain is a 2/10. Cardiac Catheterization Findings per Dr. Doyle: * LM - Short left main * LAD - 95+% focal stenosis involving ostial LAD, ostium moderate caliber ramus possibly extending into distal left main. Mid LAD stent is patent with distal luminal irregularities and JOSE 3 flow * Circumflex - Moderate caliber vessel, patent stent in OM2, no other significant disease * RCA - Dominant, 20-30% mid RCA disease, distal segment disease free The patient denies weight loss, fever, dizziness, numbness, change in vision, sore throat, palpitations, awareness of tachyarrhythmias, leg swelling, shortness of breath, cough, nausea, vomiting, bloody stools, diarrhea, constipation, abdominal pain, other changes in urine or bowel habits. Past Medical/Surgical History Medical Problems: Sleep Apnea Chest pain Elevated lipase Heart disease Herniated cervical disc Herniated disc HTN (hypertension) Periodic Limb Movement Disorder Pharyngitis Radiculopathy TMJ Unstable angina Upper Airway Resistance Syndrome Surgical Problems: H/O heart artery stent History of heart artery stent Hx of cardiac cath Family History Cancer Diabetes mellitus Heart disease Hypertension Social History Smoking Status: Never Smoker Smokeless Tobacco Use: No Drug Use: none Marital Status: Housing Status: lives with family Occupation Status: employed Allergies Coded Allergies: Penicillins (Verified Allergy, Intermediate, RASH;HIVES, 04/14/17) Sulfa Drugs (Verified Allergy, Intermediate, RASH;HIVES, 04/14/17) Home Medications Scheduled Amlodipine Besylate (Norvasc), 5 MG PO DAILY Aspirin (Aspirin Ec), 81 MG PO QAM Fluoxetine HCl (Fluoxetine HCl), 20 MG PO HS Lisinopril (Lisinopril), 40 MG PO HS Pantoprazole (Pantoprazole Sodium), 40 MG PO QAM Rosuvastatin Calcium (Rosuvastatin Calcium), 10 MG PO HS Scheduled PRN Nitroglycerin (Nitrostat), 0.4 MG UT UD PRN for Chest Pain Tramadol Hcl (Ultram), 50 MG PO Q6H PRN for Pain Current Inpatient Medications Current Inpatient Medications Medications (Trade) Dose Ordered Sig/Arya Route Start Time Stop Time Status Last Admin Dose Admin Amlodipine Besylate (Norvasc Tab) 5 mg DAILY PO 01/31/18 09:00 03/02/18 08:59 Aspirin (Ecotrin Tab) 81 mg QAM PO 01/31/18 09:00 03/02/18 08:59 Fluoxetine HCl (Prozac Cap) 20 mg HS PO 01/30/18 21:00 03/01/18 20:59 Pantoprazole Sodium (Protonix Tab) 40 mg QAM PO 01/31/18 09:00 03/02/18 08:59 Rosuvastatin Calcium (Crestor Tab) 10 mg HS PO 01/30/18 21:00 03/01/18 20:59 Tramadol HCl (Ultram Tab) 50 mg Q6H PRN PO 01/30/18 19:30 03/01/18 19:29 Enoxaparin Sodium (Lovenox Inj) 40 mg Q24H SC 01/30/18 19:30 03/01/18 19:29 UNV Sodium Chloride 1,000 ml @ 75 mls/hr [id number] IV 01/30/18 19:20 03/01/18 19:19 Acetaminophen (Tylenol Tab) 650 mg Q4H PRN PO 01/30/18 19:30 03/01/18 19:29 Al Hydrox/Mg Hydrox/Simethicone (Maalox Max Susp) 15 ml Q4H PRN PO 01/30/18 19:30 03/01/18 19:29 Magnesium Hydroxide (Milk Of Magnesia Susp) 30 ml Q12H PRN PO 01/30/18 19:30 03/01/18 19:29 Zolpidem Tartrate (Ambien Tab) 5 mg HSZ PRN PO 01/30/18 19:30 03/01/18 19:29 Ondansetron HCl (Zofran Inj) 4 mg Q6H PRN IV 01/30/18 19:30 03/01/18 19:29 Nitroglycerin (Nitrostat Tab) 0.4 mg UD PRN SL 01/30/18 19:30 03/01/18 19:29 Nitroglycerin (Nitroglycerin 2% Oint) 1 inch Q6H EXT 01/30/18 19:30 03/01/18 19:29 Polyethylene (Miralax Powder Packet) 17 gm DAILY PRN PO 01/30/18 19:30 03/01/18 19:29 Review of Systems 12 systems reviewed and negative other than previously mentioned in the HPI. Physical Exam Date Time Temp Pulse Resp B/P (MAP) Pulse Ox O2 Delivery O2 Flow Rate FiO2 01/30/18 20:30 63 16 128/95 (106) 98 Nasal Cannula 4 01/30/18 20:25 63 16 135/101 (112) 98 Nasal Cannula 4 01/30/18 20:10 62 16 130/94 (106) 98 Nasal Cannula 4 3/12/18 19:35 51 18 147/93 100 01/30/18 19:00 51 18 147/93 100 Room Air 01/30/18 17:43 56 20 121/87 98 Room Air 01/30/18 17:40 57 01/30/18 17:30 98 Room Air 01/30/18 17:30 98 Room Air 01/30/18 17:10 36.5 57 20 127/80 98 Room Air Vital Signs - as noted Laboratory Data - as noted Physical Exam: General - NAD, Making jokes with at bedside Eyes - PERRL, EOMI No icterus, gaze conjugate ENT - Mucosa moist, no lesions or candidiasis Neck - Supple, trachea midline, no masses or lymphadenopathy, no JVD or bruits Lungs - No paradoxical chest wall movement, clear to auscultation bilaterally, no wheezes, rales, or rhonchi Heart - Reg rate and rhythm, No murmur, rubs, clicks, or gallops appreciated Abdomen - BS present, no bruits noted, tympanic to percussion, soft, nontender, nondistended, no organomegaly Extremities - No edema, pedal pulses intact, TR Band in place Neuro - A&OX4 Strength extremities equal and appropriate bilaterally Reflexes: Bicep, brachioradialis, patellar, and plantar normal and equal CN:PERRL, EOMI, no facial asymmetry, uvula/tongue midline Laboratory Results Last 24 Hours Test 01/30/18 17:33 01/30/18 17:39 White Blood Count 6.26 K/uL Red Blood Count 5.42 M/uL Hemoglobin 16.1 g/dL Hematocrit 46.3 % Mean Corpuscular Volume 85.4 fL Mean Corpuscular Hemoglobin 29.7 pg Mean Corpuscular Hemoglobin Concent 34.8 g/dl Platelet Count 148 K/uL Mean Platelet Volume 9.3 fL Neutrophils (%) (Auto) 66.2 % Lymphocytes (%) (Auto) 24.4 % Monocytes (%) (Auto) 7.3 % Eosinophils (%) (Auto) 1.4 % Basophils (%) (Auto) 0.5 % Neutrophils # (Auto) 4.14 K/uL Lymphocytes # (Auto) 1.53 K/uL Monocytes # (Auto) 0.46 K/uL Eosinophils # (Auto) 0.09 K/uL Basophils # (Auto) 0.03 K/uL RDW Standard Deviation 40.0 fL RDW Coefficient of Variation 12.8 % Immature Granulocyte % (Auto) 0.2 % Immature Granulocyte # (Auto) 0.01 K/uL Prothrombin Time 10.4 SECONDS Prothromb Time International Ratio 1.0 Activated Partial Thromboplast Time 25.7 SECONDS Partial Thromboplastin Ratio 1.0 Sodium Level 139 mmol/L Potassium Level 3.7 mmol/L Chloride Level 105 mmol/L Carbon Dioxide Level 29 mmol/L Anion Gap 5.0 mmol/L Blood Urea Nitrogen 15 mg/dl Creatinine 1.09 mg/dl Est Creatinine Clear Calc Drug Dose 75.8 ml/min Estimated GFR () 91.2 Estimated GFR (Non- 78.7 BUN/Creatinine Ratio 14.0 Random Glucose 93 mg/dl Calcium Level 8.5 mg/dl Total Bilirubin 0.6 mg/dl Direct Bilirubin 0.2 mg/dl Aspartate Amino Transf (AST/SGOT) 18 U/L Alanine Aminotransferase (ALT/SGPT) 40 U/L Alkaline Phosphatase 68 U/L Total Creatine Kinase 151 U/L Creatine Kinase MB 0.9 ng/ml Creatine Kinase MB Ratio 0.6 Total Protein 7.2 gm/dl Albumin 4.1 gm/dl Triglycerides Level 136 mg/dl Cholesterol Level 121 mg/dl HDL Cholesterol 41 mg/dl LDL Cholesterol, Calculated 53 mg/dl VLDL Cholesterol, Calculated 27 mg/dl Cholesterol/HDL Ratio 3.0 Lipase 165 U/L Bedside Troponin I < 0.030 ng/ml Diagnostic Results CHEST ONE VIEW PORTABLE HISTORY: 52 years-old Male CHEST PAIN acute atypical chest pain COMPARISON: Chest radiograph 10/28/2014 TECHNIQUE: Portable AP view of the chest FINDINGS: Cardiomediastinal and hilar silhouettes are within normal limits. There is no pneumothorax, pleural effusion, focal airspace consolidation or overt pulmonary edema. The bones of the chest appear grossly intact. Degenerative changes noted within the shoulders and spine. IMPRESSION: No acute process. The above report was generated using voice recognition software. It may contain grammatical, syntax or spelling errors. Electronically signed by: Tu Lebron M.D. 01/30/2018 6:23 PM Dictated Date/Time: 01/30/2018 6:22 PM Assessment & Plan (1) Unstable angina (2) Abnormal ECG (3) Chest pain (4) Heart disease (5) HTN (hypertension) (6) Substernal precordial chest pain Reason Critically Ill: Patient is an 52-year-old male who is transferred to the ICU for unstable angina that could not be optimized within our cardiac catheterization unit. Pt is to be transferred to [facility] and has a room held at this time. PLAN: CV: * Dr. Doyle following, Cath Findings per Dr. Doyle documentation * LM - Short left main * LAD - 95+% focal stenosis involving ostial LAD, ostium moderate caliber ramus possibly extending into distal left main. Mid LAD stent is patent with distal luminal irregularities and JOSE 3 flow * Circumflex - Moderate caliber vessel, patent stent in OM2, no other significant disease * RCA - Dominant, 20-30% mid RCA disease, distal segment disease free * Unstable Angina * Continue Heparin infusion * [facility] for evaluation for complex PCI vs CABG [facility] * Currently stable * Prior CAD with 3 stents placed in 2013 as noted in HPI * Chest Pain now 12/31 * Continue Nitroglycerin infusion per cardiology orders * Trend cardiac enzymes * Expect elevations 2/ catheterization * Obtain lipids * EKG on arrival and with chest pain changes * Continue home medications * Continue current dual anti-platelet therapy, statin, ACEi, and Norvasc Resp: * Supplemental oxygen as required * On room air currently with adequate saturations Fluids/Renal: * BUN/Cr: 15/.09 * Unknown baseline * Continue NSS @ 75mls/hr * Received 1L fluid bolus in ED * Monitor I&Os * No bernard at this time ID: * No signs of infection * Monitor daily WBC and trend fever curve GI/Nutrition: * AHA Heart Healthy Diet * Continue home PPI Heme: * Heparin infusion per protocol * Trend coags per protocol * TR band in place on Right Radial Wrist Endocrine: * Accu-Checks per protocol, started insulin infusion for 2 blood sugars greater than 180 * Check TSH in AM/A1C CCT: 45 Minutes; This time is exclusive of all separately billable procedures. Thank you for involving us in the care of this patient. Please refer to Dr. Rashaun Strauss's addendum for further recommendations. I have reviewed the documentation, patient was transferred out of [facility] prior to my independent evaluation.
[2018-01-30] MEDS ORDERED: MoRPHine SULFATE 2 MG/ML CARP ONE (22:06)
[2018-01-30] MEDS ORDERED: NURSING VERBAL MED ORDER ONE (22:15)
[2018-01-30] MEDS ORDERED: LORAZEPAM 0.5 MG TAB PO STA (22:22)
--- NOTE | 2018-01-30 22:24 | Discharge Instructions ---
Discharge Instructions Date of Service Jan 30, 2018. Admission Reason for Admission: Unstable Angina Discharge Discharge Diagnosis / Problem: left main disease Discharge Goals Goal(s): Decrease discomfort Activity Recommendations Activity Limitations: resume your previous activity . Current Hospital Diet Patient's current hospital diet: Discharge Diet Recommended Diet: N/A Pending Studies Studies pending at discharge: no Laboratory Results Lipid Panel Test 01/30/18 17:33 Range/Units Triglycerides Level 136 0-150 mg/dl Cholesterol Level 121 0-200 mg/dl HDL Cholesterol 41 mg/dl Cholesterol/HDL Ratio 3.0 LDL Cholesterol, Calculated 53 mg/dl Medical Emergencies . Who to Call and When: Medical Emergencies: If at any time you feel your situation is an emergency, please call 911 immediately. . Non-Emergent Contact Non-Emergency issues call your: Line Welder . . "Provider Documentation" section prepared by Leo Gonzalez. .
[2018-01-30] MEDS ORDERED: LORAZEPAM 0.5 MG TAB ONE (22:25)
[2018-01-30] MEDS ORDERED: NTRGSL/4 UT (23:37)
[2018-01-30] MEDS ORDERED: LSN40 PO (23:37)
[2018-01-31] MEDS ORDERED: AMLODIPINE BESYLATE 5 MG TAB PO SCH (09:00)
[2018-01-31] MEDS ORDERED: PANTOprazole SOD 40 MG TAB PO SCH (09:00)
[2018-01-31] MEDS ORDERED: ASPIRIN 81 MG ECTAB PO SCH (09:00)
== END 2018-01-30 23:55 | disposition short-term general hospital (02) | DRG 287 ==
LOC: C.EDB 17:08 → C.MSICU 19:29 → ENRESERV 20:23
PROVIDERS: ADMIT Internal Medicine; ATTEND Internal Medicine
PROC: B211YZZ Fluoroscopy of Multiple Coronary Arteries using Other Contrast (ICD-10-PCS; principal; 2018-01-30 19:37)
DX: I25.110 Atherosclerotic heart disease of native coronary artery with unstable angina pectoris (principal); I10 Essential (primary) hypertension; E78.5 Hyperlipidemia, unspecified; F41.9 Anxiety disorder, unspecified; K21.9 Gastro-esophageal reflux disease without esophagitis; G89.29 Other chronic pain; Z79.82 Long term (current) use of aspirin; Z79.899 Other long term (current) drug therapy; Z95.5 Presence of coronary angioplasty implant and graft; Z88.0 Allergy status to penicillin; Z88.2 Allergy status to sulfonamides

== ENCOUNTER 2019-05-15 18:49 | Observation (INO) ==
--- OUTSIDE RECORDS SUMMARY | 2019-05-15 18:51 | External Medical Summary | Continuity of Care Document ---
:1965 Author Name Richard Teran Address Unavailable Unavailable , Care Team Providers Name Role Phone Unavailable Unavailable Unavailable Case Brad CASILLAS Unavailable [email or web address] Berhane YEUNG Unavailable Unavailable Unavailable Unavailable Unavailable Problems Temporomandibular joint dysfunction (524.60) (M26.609) Periodic limb movement disorder (327.51) (G47.61) Upper airway resistance syndrome (327.8) (G47.8) Apnea, sleep (780.57) (G47.30) Migraines (346.90) (G43.909) CAD (coronary artery disease), [place] coronary artery (414.0 1) (I25.10) Degeneration of intervertebral disc of cervical region (722. 4) (M50.30) Exercise-induced angina (413.9) (I20.8) Hypertensive disorder (401.9) (I10) Hyperlipidemia (272.4) (E78.5) Neck pain (723.1) (M54.2) Thrombocytopenia (287.5) (D69.6) Weight disorder (783.9) (R63.8) New onset of headaches after age 50 (784.0) (R51) Allergies and Adverse Reactions amLODIPine Besylate TABS (Allergy) React ion: Swelling Penicillins (Allergy) Reaction: Hives, R edinson, Fever Sulfa Drugs (Allergy) Reaction: Hives, F ever, Rash Medications amLODIPine Besylate 5 MG Oral Tablet; TAKE 1 TABLET DAILY. , M.D. Quantity: 90 Refills: 3 Zantac 150 Maximum Strength 150 MG Oral Tablet; TAKE 1 TABLET AT BEDTIME. , M.D. Refills: 0 Tamsulosin HCl - 0.4 MG Oral Capsule; TAKE 1 CAPSULE Daily , M.D. Quantity: 90 Refills: 3 Lisinopril 40 MG Oral Tablet; TAKE 1 TABLET DAILY. , M.D. End: 19-Jan-2020 Quantity: 90 Refills: 3 Pantoprazole Sodium 40 MG Oral Tablet De layed Release; Take 1 tablet twice daily , M.D. Refills: 0 busPIRone HCl - 10 MG Oral Tablet; TAKE 1 TABLET TWICE DAILY . , M.D. End: 23-Jul-2019 Quantity: 60 Refills: 5 Nitrostat 0.4 MG Sublingual Tablet Sublingual; TAKE DIREC JOSSE. , M.D. Refills: 0 Crestor 10 MG Oral Tablet; TAKE 1 TABLET AT BEDTIME. , M.D. Refills: 0 FLUoxetine HCl - 20 MG Oral Tablet; TAKE 2 TABLETS DAILY. , M.D. Refills: 0 traMADol HCl - 50 MG Oral Tablet; TAKE 1 TABLET Every 6 hour s PRN , M.D. Refills: 0 Butalbital-Acetaminophen 50-325 MG Oral Tablet; take 1-2 tablets bid prn headaches, no more than 2 days a week VINNY Gracia Start: 9 Quantity: 20 Refills: 1 Procedures History of Heart Surgery Status: Complet ed Immunizations Immunizations not documented Family History Father Family history of diabetes mellitus (V18.0) (Z83.3) Status: Active Family history of mitral valve disorder (V17.49) (Z82.49) St atus: Active Family history of cardiac disorder (V17.49) (Z82.49) Status: Active Family history of myocardial infarction (V17.3) (Z82.49) Sta tus: Active Family history of tobacco abuse (V61.42) (Z81.2) Status: Act chemo FH: CABG (coronary artery bypass surgery) (V17.3) (Z82.49) S tatus: Active Family history of History of heart valve replacement ( V43.3) (Z95.2) Status: Active Mother Family history of TBI (traumatic brain injury) (854.00 ) (S06.9X9A) Status: Active Social History - Smoking Status Never smoker Plan of Treatment Planned Observations Planned Goals not documented Results No Known Results Results not documented Encounters Appointment; Valeria Gracia PA-C 22-Feb-2019 14:00 Encounter Diagnosis: Problem not documented
[2019-05-15] MEDS ORDERED: NITROGLYCERIN SL 0.4 MG/TAB TAB SL STA (19:14)
--- NOTE | 2019-05-15 19:16 | Emergency Department Note ---
ED Visit Note I assisted Dr. Stratton with the care of the patient. Please see attending note for more information. . Resident Activity Tracking Resident Involvement: Resident Care Provided Care Provided: Adult ED
[2019-05-15 19:23] LABS: Basophils # (auto) 0.03 K/uL (0-0.2); Basophils % (auto) 0.4 %; Eosinophils # (auto) 0.14 K/uL (0-0.5); Eosinophils % (auto) 1.7 %; Hematocrit (blood only) 41.3 % (42-52); Hemoglobin 14.3 g/dL (14.0-18.0); Immature Granulocytes # (auto) 0.01 K/uL (0.00-0.02); Immature Granulocytes % (auto) 0.1 %; Lymphocytes % (auto) 17.1 %; Mean Corpuscular Hgb Conc 34.6 g/dL (32-36); Mean Corpuscular Volume 84.3 fL (80-100); Mean Platelet Volume 9.1 fL (7.4-10.4); Monocytes # (auto) 0.83 K/uL (0.11-0.59); Monocytes % (auto) 10.1 %; Neutrophils # (auto) 5.78 K/uL (1.4-6.5); Neutrophils % (auto) 70.6 %; Platelet Count 134 K/uL (130-400); RDW Standard Deviation 39.3 fL (36.4-46.3); White Blood Count 8.19 K/uL (4.8-10.8)
[2019-05-15 19:34] LABS: Partial Thromboplastin Time 27.7 Seconds (21.0-31.0); Prothrombin Time 10.1 Seconds (9.0-12.0)
[2019-05-15 19:37] LABS: iSTAT Creatinine 1.2 mg/dl (0.6-1.3); iSTAT Hemoglobin 14.3 g/dl (14.0-18.0); iSTAT Ionized Calcium 1.18 mmol/l (1.12-1.32); iSTAT Potassium 3.7 mEq/L (3.3-5.0)
[2019-05-15 19:39] LABS: Alanine Aminotransferase 27 U/L (12-78); Albumin Level 3.6 gm/dl (3.4-5.0); Aspartate Aminotransferase 15 U/L (15-37); BUN Creatinine Ratio 15.6 (10-20); Blood Urea Nitrogen 20 mg/dl (7-18); Calcium 9.3 mg/dl (8.5-10.1); Carbon Dioxide 31 mmol/L (21-32); Chloride 108 mmol/L (98-107); Creatinine Clr Calc Pharmacy 70.1 ml/min; Est GFR (African American) 76.8; Est GFR (Non-African American) 66.2; Glucose 93 mg/dl (70-99); Potassium 3.8 mmol/L (3.5-5.1); Sodium 143 mmol/L (136-145)
[2019-05-15 19:45] LABS: Alkaline Phosphatase 76 U/L (45-117); Bilirubin,Total 0.4 mg/dl (0.2-1); Creatine Kinase MB < 1.0 ng/ml (0.5-3.6); Globulin 3.6 gm/dl (2.5-4.0); Total Protein 7.2 gm/dl (6.4-8.2); Troponin I < 0.015 ng/ml (0-0.045)
--- NOTE | 2019-05-15 20:07 | XRay Report ---
XR chest 1V portable CLINICAL HISTORY: 53 years-old Male presenting with Chest Pain. TECHNIQUE: Portable upright AP view of the chest was obtained. COMPARISON: 10/25/2018. FINDINGS: Cardiomediastinal silhouette normal. Coronary artery stents likely in place. No focal opacity. No lar ge effusion or pneumothorax. Degenerative changes of the thoracic spine. Upper abdomen normal. IMPRESSION: 1. No acute cardiopulmonary disease. Electronically signed by: Parag Arechiga M.D. 05/15/2019 8:05 PM
[2019-05-15] MEDS ORDERED: ASPIRIN 325 MG ECTAB PO STA (20:58)
[2019-05-15] MEDS ORDERED: ACETAMINOPHEN 500 MG TAB PO STA (20:58)
[2019-05-15] MEDS ORDERED: GUAIFENESIN/CODEINE 100MG/10MG 5ML UDC PO STA (21:11)
--- NOTE | 2019-05-15 21:15 | Emergency Department Note ---
Entered by Claire Scott acting as a scribe for Mathew Stratton MD History of Present Illness General Chief complaint: Cough Stated complaint: CHEST PAINS Time Seen by Provider: 05/15/19 18:55 Source: patient Mode of arrival: ambulatory Limitations: no limitations History of Present Illness Provider complaint: Cough Onset (ago): day(s) (a few days ago) Location: mouth Radiation: non-radiation Pain Consistency: + other (worsening) Maximum Pain Intensity: 6 Quality: + other (cough) Associated symptoms: + chest pain (tightness, pressure) and + other (Denies: lower extremity swelling); no shortness of breath Treatments prior to arrival: none The patient is a 53 year old male with a history of coronary artery disease, hypertension, [place], BPH, GERD, and a cardiac stent who presents to the Emergency Room with complaints of a worsening cough starting a few days ago. The patient reports that he has had cold symptoms for a few days and developed persistent chest tightness and pressure over the course of today. He states that his chest symptoms feel similar to his previous [place]. The patient denies any shortness of breath and lower extremity swelling. He further denies taking a Nitroglycerin since last year. He notes that he recently took a long car ride to [place]. Home Medications Home Medications Medication Instructions Recorded Confirmed Type aspirin 81 mg PO HS 10/17/18 05/15/19 History pantoprazole 40 mg PO BID 10/17/18 05/15/19 History rosuvastatin 10 mg PO HS 10/17/18 05/15/19 History tamsulosin 0.4 mg PO DAILY 10/17/18 05/15/19 History amlodipine 5 mg PO DAILY 05/15/19 05/15/19 History buspirone 5 mg PO QAM 05/15/19 05/15/19 History lisinopril 30 mg PO QAM 05/15/19 05/15/19 History solifenacin 5 mg PO HS 05/15/19 05/15/19 History albuterol sulfate [ProAir HFA] 1 puffs INH Q4H PRN #6.7 gm 05/16/19 Rx Allergies Allergy/AdvReac Type Severity Reaction Status Date / Time Penicillins Allergy Intermediate RASH;HIVES Verified 05/15/19 19:38 Sulfa (Sulfonamide Allergy Intermediate RASH;HIVES Verified 05/15/19 19:38 Antibiotics) Past Med/Surg History Medical History Coronary artery disease Myocardial infarction BPH (benign prostatic hyperplasia) GERD (gastroesophageal reflux disease) (Acute) Depression DVT prophylaxis HTN (hypertension) (Resolved) Heart disease (Chronic) Herniated cervical disc (Chronic) Unstable angina Surgical History History of heart artery stent (Resolved) Hx of cardiac cath (Resolved) Social History Preferred Language: Arabic Communication Ability: Effective Beliefs That Will Affect Care: None marital status: Current Living Situation: Spouse current occupational status: employed Feels Safe at Home: Yes Smoking Status: Never smoker Second Hand Exposure: No Hx Alcohol Use: No Hx Substance Use: No Review of Systems See HPI for pertinent positives & negatives. and A total of 10 systems reviewed and were otherwise negative Physical Exam Vital Signs Vital Signs - 24 hr 05/15/19 18:51 05/15/19 19:24 05/15/19 20:36 Temperature 36.6 C Temperature Source Oral Sepsis Recent Fever Within 48 Hours No Sepsis Action Taken by Nursing No Action Required Pulse Rate 71 Pulse Rate [Finger] 78 60 Respiratory Rate 18 17 17 Blood Pressure 150/99 H Blood Pressure [Right Arm] 147/96 H 121/75 Blood Pressure Mean 116 Blood Pressure Mean [Right Arm] 113 90 Pulse Oximetry 100 97 98 Oxygen Delivery Method Room Air Room Air GENERAL: Awake, alert, well-appearing, in no acute distress HENT: Normocephalic, atraumatic. Erythema in the posterior pharynx. Red boggy nasal mucosa. EYES: Normal conjunctiva. Sclera non-icteric. NECK: Supple. No nuchal rigidity. FROM. No JVD. RESPIRATORY: Clear to auscultation bilaterally. CARDIAC: Regular rate, normal rhythm. No murmurs, rubs, or gallops. Extremities warm and well perfused. Pulses equal. ABDOMEN: Soft, non-distended. No tenderness to palpation. No rebound or guarding. No masses. RECTAL: Deferred. MUSCULOSKELETAL: Chest examination reveals no tenderness. The back is symmetr ical on inspection without obvious abnormality. There is no CVA tenderness to palpation. No joint edema. LOWER EXTREMITIES: Calves are equal size bilaterally and non-tender. No edema. No discoloration. NEURO: Normal sensorium. No sensory or motor deficits noted. SKIN: No rash or jaundice noted. Course 1899: The patient was seen and evaluated by the Resident Physician, Dr. Gavin Fajardo, at this time. History and physical were discussed with me. 1926: The patient was evaluated in room C7, and a complete history and physical examination were performed. 2044: I reviewed the patient's [facility] Tadeo will evaluate the patient for further management. Consultations Consultation #1: I reviewed the patient's case with Dr. Tadeo - Dina, [facility]. Dr. Tadeo will evaluate the patient for further management. Time: 20:45 Administered Medications Discontinued Medications Acetaminophen (Tylenol) 1,000 mg PO NOW STA Stop: 05/15/19 20:59 Last Admin: 05/15/19 21:08 Dose: 1,000 mg Documented by: [id number] Acetaminophen (Tylenol) 650 mg PO Q4H PRN PRN Reason: Pain or Fever Stop: 06/14/19 22:46 Last Admin: 05/16/19 04:34 Dose: 650 mg Documented by: [id number] Albuterol (Duoneb) 3 ml NEB QIDR ASIM Stop: 06/14/19 23:24 Last Admin: 05/16/19 11:04 Dose: 3 ml Documented by: [id number] Admin: 05/16/19 07:03 Dose: 3 ml Documented by: [id number] Admin: 05/16/19 04:42 Dose: 3 ml Documented by: [id number] Admin: 05/16/19 00:06 Dose: 3 ml Documented by: [id number] Amlodipine Besylate (Norvasc) 5 mg PO HS ASIM Stop: 06/14/19 23:29 Last Admin: 05/15/19 23:41 Dose: 5 mg Documented by: [id number] Aspirin (Ecotrin) 325 mg PO NOW STA Stop: 05/15/19 20:59 Last Admin: 05/15/19 21:08 Dose: 325 mg Documented by: [id number] Benzonatate (Tessalon Perle) 100 mg PO NOW ONE Stop: 05/15/19 22:13 Last Admin: 05/15/19 22:22 Dose: 100 mg Documented by: [id number] Benzonatate (Tessalon Perle) 100 mg PO TID ASIM Stop: 06/15/19 08:59 Last Admin: 05/16/19 08:12 Dose: 100 mg Documented by: [id number] Budesonide (Pulmicort Respules) 0.5 mg NEB BIDR ASIM Stop: 06/14/19 23:24 Last Admin: 05/16/19 07:03 Dose: 0.5 mg Documented by: [id number] Admin: 05/16/19 00:06 Dose: 0.5 mg Documented by: [id number] Buspirone HCl (Buspar) 5 mg PO QAM ASIM Stop: 06/15/19 08:59 Last Admin: 05/16/19 08:11 Dose: 5 mg Documented by: [id number] Guaifenesin/Codeine Phosphate (Robitussin-Ac Sugar Free) 10 ml PO NOW STA Stop: 05/15/19 21:12 Last Admin: 05/15/19 21:20 Dose: 10 ml Documented by: [id number] Dextrose/Lactated Ringer's (D5w And Lactated Ringers) 1,000 mls @ 125 mls/hr IV .Q8H ASIM Stop: 06/14/19 22:46 Last Admin: 05/16/19 08:11 Dose: 125 mls/hr Documented by: [id number] Infusion: 05/16/19 07:48 Dose: 125 mls/hr Documented by: [id number] Admin: 05/15/19 23:48 Dose: 125 mls/hr Documented by: [id number] Lisinopril (Zestril) 30 mg PO ASIM Stop: 06/14/19 23:29 Last Admin: 05/15/19 23:42 Dose: 30 mg Documented by: [id number] Nitroglycerin (Nitrostat) 0.4 mg SL NOW STA Stop: 05/15/19 19:15 Last Admin: 05/15/19 19:28 Dose: 0.4 mg Documented by: [id number] Solifenacin~Non- Formulary Patient's Own Med 1 ea PO ASIM Stop: 06/14/19 23:44 Last Admin: 05/16/19 08:12 Dose: 5 mg Documented by: [id number] Admin: 05/15/19 23:40 Dose: 5 mg Documented by: [id number] Pantoprazole Sodium (Protonix) 40 mg PO BID ASIM Stop: 06/14/19 22:59 Last Admin: 05/16/19 08:14 Dose: 40 mg Documented by: [id number] Admin: 05/15/19 23:40 Dose: 40 mg Documented by: [id number] Tamsulosin HCl (Flomax) 0.4 mg PO HS ASIM Stop: 06/14/19 23:29 Last Admin: 05/15/19 23:42 Dose: 0.4 mg Documented by: [id number] Medical Decision Making Differential Diagnosis Differential diagnosis: Etiologies such as cardiac ischemia, aortic dissection, pulmonary embolism, pneumonia, pneumothorax, musculoskeletal, infections, pericarditis, myocarditis, esophageal rupture, gastrointestinal, as well as others were entertained. Medical Records Attestation: I reviewed the patient's medical records. Home Medications Current Medication List: was personally reviewed by me Laboratory Data Attestation: I reviewed the patient's lab results. Result diagrams: 05/15/19 19:12 05/15/19 19:12 Lab Results 05/15/19 05/15/19 05/15/19 Range/Units 19:12 19:12 19:12 WBC 8.19 (4.8-10.8) K/uL RBC 4.90 (4.7-6.1) M/uL Hgb 14.3 (14.0-18.0) g/dL POC Hgb (14.0-18.0) g/dl Hct 41.3 L (42-52) % POC Hct (42-52) % MCV 84.3 (80-100) fL MCH 29.2 (25-34) pg MCHC 34.6 (32-36) g/dL RDW Std Deviation 39.3 (36.4-46.3) fL RDW Coeff of Nina 13.0 (11.5-14.5) % Plt Count 134 (130-400) K/uL MPV 9.1 (7.4-10.4) fL Immature Gran % (Auto) 0.1 % Neut % (Auto) 70.6 % Lymph % (Auto) 17.1 % Elk % (Auto) 10.1 % Eos % (Auto) 1.7 % Baso % (Auto) 0.4 % Immature Gran # (Auto) 0.01 (0.00-0.02) K/uL Neut # (Auto) 5.78 (1.4-6.5) K/uL Lymph # (Auto) 1.40 (1.2-3.4) K/uL Elk # (Auto) 0.83 H (0.11-0.59) K/uL Eos # (Auto) 0.14 (0-0.5) K/uL Baso # (Auto) 0.03 (0-0.2) K/uL PT 10.1 (9.0-12.0) Seconds INR 1.0 (0.9-1.1) APTT 27.7 (21.0-31.0) Seconds PTT Ratio 1.0 POC D-Dimer (0-450) ng/mlFEU POC Sodium (135-144) mEq/L Sodium 143 (136-145) mmol/L POC Potassium (3.3-5.0) mEq/L Potassium 3.8 (3.5-5.1) mmol/L POC Chloride (101-112) mEq/L Chloride 108 H (98-107) mmol/L Carbon Dioxide 31 (21-32) mmol/L POC Total CO2 (24-31) mEq/l Anion Gap 5.0 (3-11) POC Anion Gap (16-25) mmol/L POC BUN (7-18) mg/dl BUN 20 H (7-18) mg/dl Creatinine 1.25 (0.6-1.4) mg/dl POC Creatinine (0.6-1.3) mg/dl Est Cr Clr Drug Dosing 70.1 ml/min Est GFR ( Amer) 76.8 Est GFR (Non-Af Amer) 66.2 BUN/Creatinine Ratio 15.6 (10-20) Glucose 93 (70-99) mg/dl POC Glucose (other) (70-99) mg/dl Calcium 9.3 (8.5-10.1) mg/dl POC Ioniz Calcium Radhika (1.12-1.32) mmol/l Total Bilirubin 0.4 (0.2-1) mg/dl AST 15 (15-37) U/L ALT 27 (12-78) U/L Alkaline Phosphatase 76 (45-117) U/L CK-MB (CK-2) < 1.0 (0.5-3.6) ng/ml Troponin I < 0.015 (0-0.045) ng/ml Total Protein 7.2 (6.4-8.2) gm/dl Albumin 3.6 (3.4-5.0) gm/dl Globulin 3.6 (2.5-4.0) gm/dl Albumin/Globulin Ratio 1.0 (0.9-2) Lipase 138 (73-393) U/L Influenza Type A Ag (Neg) Influenza Type B Ag (Neg) 05/15/19 05/15/19 05/15/19 Range/Units 19:23 19:23 19:25 WBC (4.8-10.8) K/uL RBC (4.7-6.1) M/uL Hgb (14.0-18.0) g/dL POC Hgb 14.3 (14.0-18.0) g/dl Hct (42-52) % POC Hct 42 (42-52) % MCV (80-100) fL MCH (25-34) pg MCHC (32-36) g/dL RDW Std Deviation (36.4-46.3) fL RDW Coeff of Nina (11.5-14.5) % Plt Count (130-400) K/uL MPV (7.4-10.4) fL Immature Gran % (Auto) % Neut % (Auto) % Lymph % (Auto) % Elk % (Auto) % Eos % (Auto) % Baso % (Auto) % Immature Gran # (Auto) (0.00-0.02) K/uL Neut # (Auto) (1.4-6.5) K/uL Lymph # (Auto) (1.2-3.4) K/uL Elk # (Auto) (0.11-0.59) K/uL Eos # (Auto) (0-0.5) K/uL Baso # (Auto) (0-0.2) K/uL PT (9.0-12.0) Seconds INR (0.9-1.1) APTT (21.0-31.0) Seconds PTT Ratio POC D-Dimer 238 (0-450) ng/mlFEU POC Sodium 142 (135-144) mEq/L Sodium (136-145) mmol/L POC Potassium 3.7 (3.3-5.0) mEq/L Potassium (3.5-5.1) mmol/L POC Chloride 101 (101-112) mEq/L Chloride (98-107) mmol/L Carbon Dioxide (21-32) mmol/L POC Total CO2 27 (24-31) mEq/l Anion Gap (3-11) POC Anion Gap 18.0 (16-25) mmol/L POC BUN 21 H (7-18) mg/dl BUN (7-18) mg/dl Creatinine (0.6-1.4) mg/dl POC Creatinine 1.2 (0.6-1.3) mg/dl Est Cr Clr Drug Dosing ml/min Est GFR ( Amer) Est GFR (Non-Af Amer) BUN/Creatinine Ratio (10-20) Glucose (70-99) mg/dl POC Glucose (other) 96 (70-99) mg/dl Calcium (8.5-10.1) mg/dl POC Ioniz Calcium Radhika 1.18 (1.12-1.32) mmol/l Total Bilirubin (0.2-1) mg/dl AST (15-37) U/L ALT (12-78) U/L Alkaline Phosphatase (45-117) U/L CK-MB (CK-2) (0.5-3.6) ng/ml Troponin I (0-0.045) ng/ml Total Protein (6.4-8.2) gm/dl Albumin (3.4-5.0) gm/dl Globulin (2.5-4.0) gm/dl Albumin/Globulin Ratio (0.9-2) Lipase (73-393) U/L Influenza Type A Ag Neg for Influ A (Neg) Influenza Type B Ag Neg for Influ B (Neg) Imaging Data Radiologist's Impression: Radiology results as stated below per my review and the radiologist's interpretation: XR chest 1V portable CLINICAL HISTORY: 53 years-old Male presenting with Chest Pain. TECHNIQUE: Portable upright AP view of the chest was obtained. COMPARISON: 10/25/2018. FINDINGS: Cardiomediastinal silhouette normal. Coronary artery stents likely in place. No focal opacity. No large effusion or pneumothorax. Degenerative changes of the thoracic spine. Upper abdomen normal. IMPRESSION: 1. No acute cardiopulmonary disease. Electronically signed by: Parag Arechiga M.D. 05/15/2019 8:05 PM ECG Data Attestation: I personally reviewed and interpreted this ECG as follows: Indication: chest pain Rate (beats per minute): 62 Rhythm: normal sinus Findings: no ST depression and no ST elevation Blood Pressure Blood Pressure Findings: Normal blood pressure MDM Narrative This is a 53-year-old male who presents emergency department complaining of chest pain. Patient reports that the pain is similar to his previous [place]. Based on this and the fact that the patient was given nitro and he is now pain-free I did discuss the case with the hospitalist service who agreed with the patient. Patient's EKG as well as cardiac enzymes are not elevated. Patient was in agreement with the treatment plan. Impression & Plan Chest pain, Cough Discharge Plan Visit Data *Final* Discharge Date/Time: 05/15/19 22:22 Chief Complaint: Cough Stated Complaint: CHEST PAINS ED Provider: Mathew Stratton ED Midlevel Provider: Andrea Fajardo Discharge Problem: Chest pain, Cough Patient Disposition: Admitted As Inpatient Discharge Instructions Interventions: ED Discharge Assessment Last Done: 05/15/19 22:22 Discharge Problem: Chest pain Qualifiers: Chest pain type: unspecified Qualified Code(s): R07.9 - Chest pain, unspecified The scribe's documentation has been prepared under my direction and personally reviewed by me in its entirety. I confirm that the note above accurately refl ects all work, treatment, procedures, and medical decision making performed by me.
--- NOTE | 2019-05-15 21:48 | History & Physical Report ---
Date of Service May 15, 2019 Assessment & Plan (1) Chest pain: 53-year-old male with history of CAD status post cath in 2013 with 3 stents and OM1 and 1 and LAD presents with chest pain in the setting of productive cough and viral URI symptoms that started 5 days ago. PMHx: CAD status post cath in 2013 with 3 stents and OM1 and 1 and LAD, repeat cath and January 2018 with 30% occlusion only, hypertension, hyperlipidemia, anxiety, GERD, overactive bladder, BPH Chest pain likely in the setting of cough and viral upper respiratory symptoms versus [place] versus pericarditis Troponin negative EKG: Normal sinus rate [address] or T wave changes Echo 09/2018: EF 45 to 50%, regional wall motion abnormality-mild hypokinesis of lateral anterior and basal portions of posterior wall Chest x-ray negative with normal pulmonary exam Influenza negative D-dimer negative Received nitro x1 aspirin 325 mg and Tylenol 1 g in the ED with improvement in pain Tessalon Perles to help with cough Trend troponin x3 every 6 hours Monitor in telemetry overnight Hypertension Continue home amlodipine and lisinopril CAD/hyperlipidemia Continue rosuvastatin and aspirin GERD Continue pantoprazole Anxiety Continue buspirone BPH/overactive bladder Continue tamsulosin and solifenacin Diet: NPO for possible procedure on D5 LR 125cc/hr Code: Full DVT prophylaxis: SCDs only, encourage ambulation Dispo: Telemetry (2) Cough: (3) Coronary artery disease: (4) BPH (benign prostatic hyperplasia): (5) GERD (gastroesophageal reflux disease): (6) HTN (hypertension): (7) Hx of cardiac cath: (8) HLD (hyperlipidemia): (9) Anxiety: History of Present Illness Chief Complaint: Cough and chest pain Primary Care Provider: Wale Aguayo DO 53-year-old male with history of CAD status post cath in 2013 with 3 stents and OM1 and 1 and LAD presents with chest pain in the setting of productive cough and viral URI symptoms that started 5 days ago. Patient reports since last Tuesday, 5 days ago having sore throat, congestion, and productive cough. Associated with shortness of breath, and chest pain. Chest pain described as pressure-like, 7 out of 10 at its worst but currently 2 out of 10. He was feeling worse yesterday and today specifically having chest tightness which was concerning to him so went to PCP who referred him to the ED given cardiac h istory and complaint of chest pain. He also reports fever and chills 5 days ago but that has resolved now. Denies any lightheadedness, abdominal pain, nausea, vomiting, diarrhea, constipation, dysuria. Patient also reports coming back from [place] 6 days ago. ED: Work-up negative. patient received nitro in the ED with improvement in chest pain. Also taken Tylenol and Benadryl at home to help with symptoms. Past medical history:CAD status post cath in 2013 with 3 stents and OM1 and 1 and LAD, repeat cath and January 2018 with 30% occlusion only, hypertension, hyperlipidemia, anxiety, GERD, overactive bladder, BPH Past surgical history: Cardiac cath 2013 Social history: Denies ever smoking, social alcohol use, denies recreational drug use Family history: Mother at 78 of brain injury, father had triple bypass in 70s, no siblings Allergies Allergy/AdvReac Type Severity Reaction Status Date / Time Penicillins Allergy Intermediate RASH;HIVES Verified 05/15/19 19:38 Sulfa (Sulfonamide Allergy Intermediate RASH;HIVES Verified 05/15/19 19:38 Antibiotics) Home Medications Home Medications Medication Instructions Recorded Confirmed Type aspirin 81 mg PO HS 10/17/18 05/15/19 History pantoprazole 40 mg PO BID 10/17/18 05/15/19 History rosuvastatin 10 mg PO HS 10/17/18 05/15/19 History tamsulosin 0.4 mg PO DAILY 10/17/18 05/15/19 History amlodipine 5 mg PO DAILY 05/15/19 05/15/19 History buspirone 5 mg PO QAM 05/15/19 05/15/19 History lisinopril 30 mg PO QAM 05/15/19 05/15/19 History solifenacin 5 mg PO HS 05/15/19 05/15/19 History Past Med/Surg History Medical History Coronary artery disease Myocardial infarction BPH (benign prostatic hyperplasia) GERD (gastroesophageal reflux disease) (Acute) Depression DVT prophylaxis HTN (hypertension) (Resolved) Heart disease (Chronic) Herniated cervical disc (Chronic) Unstable angina Surgical History History of heart artery stent (Resolved) Hx of cardiac cath (Resolved) Social History Preferred Language: British Communication Ability: Effective Executor Of Estate Required: No Beliefs That Will Affect Care: None marital status: Current Living Situation: Spouse current occupational status: employed Other Information That Helps Us Care for You: No Feels Safe at Home: Yes Safety Concerns: Feels Safe At This Time Smoking Status: Never smoker Second Hand Exposure: No Hx Alcohol Use: No Hx Substance Use: No Review of Systems Review of Systems: As per HPI Physical Exam Physical Exam: General: In mild distress due to persistent cough Neuro: A&O x 4 Pulm: CTAB equal breath sounds bilaterally CV: RRR, no m/r/g Abdomen:+BS, no TTP in all quadrants, non-distended LE: no LE edema, no calf TTP Results & Data Vital Signs (Past 12 Hours) Vital Signs Temp Pulse Pulse Resp BP BP Pulse Ox 05/15/19 20:36 60 17 121/75 98 05/15/19 19:24 78 17 147/96 H 97 05/15/19 18:51 36.6 C 71 18 150/99 H 100 Laboratory Results Abnormal lab results 05/15/19 05/15/19 05/15/19 Range/Units 19:12 19:12 19:23 Hct 41.3 L (42-52) % Barron # (Auto) 0.83 H (0.11-0.59) K/uL Chloride 108 H (98-107) mmol/L POC BUN 21 H (7-18) mg/dl BUN 20 H (7-18) mg/dl Diagnostic Findings XR chest 1V portable CLINICAL HISTORY: 53 years-old Male presenting with Chest Pain. TECHNIQUE: Portable upright AP view of the chest was obtained. COMPARISON: 10/25/2018. FINDINGS: Cardiomediastinal silhouette normal. Coronary artery stents likely in place. No focal opacity. No large effusion or pneumothorax. Degenerative changes of the thoracic spine. Upper abdomen normal. IMPRESSION: 1. No acute cardiopulmonary disease. Code Status & VTE Plan Code Status Full VTE Prophylaxis Plan VTE Prophylaxis will be ordered: Yes Supervising Physician Co-Signing Physician Notes Attending addendum: I have physically seen this patient, have supervised the medical residents activities, and agree with the H&P unless as otherwise noted. Assessment and Plan: Chest pain/CAD/history coronary artery stents x3- The patient will be admitted to telemetry for serial cardiac enzymes, serial EKG's, cardiac rhythm monitoring and a 2-D echocardiogram with Dopplers. Continue aspirin, amlodipine, and lisinopril. Asthmatic bronchitis- Recent travels back and forth from [place], and had a recent work democrat. Treat symptomatically with duo nebs and Pulmicort Respules. Hyperlipidemia- Continue rosuvastatin. BPH- Continue tamsulosin. Follow blood pressure closely patient if patient is given nitroglycerin. Remaining orders and notations as noted. PG Care Time/CCT Total # of Minutes Spent Total Time Spent with Patient: Total time spent is greater than 50% in coordination of care (as documented) at patient's floor/unit and/or counseling patient: Resident Activity Tracking Resident Involvement: Resident Care Provided Care Provided: Adult Hospital Medicine (1) GERD (gastroesophageal reflux disease) Esophagitis presence: esophagitis presence not specified Qualified Code(s): K21.9 - Gastro-esophageal reflux disease without esophagitis (2) Chest pain Chest pain type: unspecified Qualified Code(s): R07.9 - Chest pain, unspecified
[2019-05-15] MEDS ORDERED: BENZONATATE 100 MG CAPSULE PO ONE (22:12)
[2019-05-15] MEDS ORDERED: MoRPHine SULFATE 2 MG/ML CARP IV PRN (22:47)
[2019-05-15] MEDS ORDERED: ONDANSETRON INJ 2 MG/ML 2 ML VIAL IV PRN (22:47)
[2019-05-15] MEDS ORDERED: ACETAMINOPHEN 325 MG TAB PO PRN (22:47)
[2019-05-15] MEDS ORDERED: TAMSULOSIN HCL 0.4 MG CAP PO SCH (23:30)
[2019-05-15] MEDS ORDERED: AMLODIPINE BESYLATE 5 MG TAB PO SCH (23:30)
[2019-05-15] MEDS ORDERED: LISINOPRIL 10 MG TAB PO SCH (23:30)
[2019-05-15] MEDS: PANTOprazole 40 MG TAB PO SCH (23:40)
[2019-05-15] MEDS: SOLIFENACIN PO SCH (23:40)
[2019-05-15] MEDS: D5W AND LACTATED RINGERS 1,000 ML IV SCH (23:48)
[2019-05-16] MEDS ORDERED: SOLIFENACIN 5 MG SCH
[2019-05-16] MEDS: ALBUT/IPRATROP 3MG/0.5MG NEB 3 ML VIAL NEB SCH ×4 (00:06→11:04)
[2019-05-16] MEDS: BUDESONIDE 0.5 MG/2 ML VIAL (PULMICORT) NEB SCH ×2 (00:06→07:03)
[2019-05-16] MEDS: D5W AND LACTATED RINGERS 1,000 ML IV SCH (08:11)
[2019-05-16] MEDS: SOLIFENACIN PO SCH (08:12)
[2019-05-16] MEDS: PANTOprazole 40 MG TAB PO SCH (08:14)
[2019-05-16] MEDS ORDERED: BENZONATATE 100 MG CAPSULE PO SCH (09:00)
[2019-05-16] MEDS ORDERED: TAMSULOSIN HCL 0.4 MG CAP PO SCH (09:00)
[2019-05-16] MEDS ORDERED: AMLODIPINE BESYLATE 5 MG TAB PO SCH (09:00)
[2019-05-16] MEDS ORDERED: LISINOPRIL 10 MG TAB PO SCH (09:00)
--- NOTE | 2019-05-16 11:12 | Discharge Summary ---
Date of Service May 16, 2019 Admission HPI Per Admitting Provider 53-year-old male with history of CAD status post cath in 2013 with 3 stents and OM1 and 1 and LAD presents with chest pain in the setting of productive cough and viral URI symptoms that started 5 days ago. Patient reports since last Tuesday, 5 days ago having sore throat, congestion, and productive cough. Associated with shortness of breath, and chest pain. Chest pain described as pressure-like, 7 out of 10 at its worst but currently 2 out of 10. He was feeling worse yesterday and today specifically having chest tightness which was concerning to him so went to PCP who referred him to the ED given cardiac histor y and complaint of chest pain. He also reports fever and chills 5 days ago but that has resolved now. Denies any lightheadedness, abdominal pain, nausea, vomiting, diarrhea, constipation, dysuria. Patient also reports coming back from [place] 6 days ago. ED: Work-up negative. patient received nitro in the ED with improvement in chest pain. Also taken Tylenol and Benadryl at home to help with symptoms. Past medical history:CAD status post cath in 2013 with 3 stents and OM1 and 1 and LAD, repeat cath and January 2018 with 30% occlusion only, hypertension, hyperlipidemia, anxiety, GERD, overactive bladder, BPH Past surgical history: Cardiac cath 2013 Social history: Denies ever smoking, social alcohol use, denies recreational drug use Family history: Mother at 78 of brain injury, father had triple bypass in 70s, no siblings Admission Exam Per Admitting Provider General: In mild distress due to persistent cough Neuro: A&O x 4 Pulm: CTAB equal breath sounds bilaterally CV: RRR, no m/r/g Abdomen:+BS, no TTP in all quadrants, non-distended LE: no LE edema, no calf TTP Principal Diagnosis Chest Pain, Viral URI Discharge Exam Constitutional WD/WN, vitals as above well developed, well nourished and + acute distress Eyes + anicteric sclerae ENMT external ear and nose normal, oropharynx normal Neck trachea midline, no thyromegaly Respiratory normal respiratory effort, lungs clear to auscultation Cardiovascular RRR, no murmur, no edema Chest (Breasts) Chest: normal inspection of chest Gastrointestinal (Abdomen) normal bowel sounds, soft, nontender, no hepatosplenomegaly Musculoskeletal no cyanosis or clubbing, extremities motor strength 5/5 Skin no rashes, warm and dry Psychiatric A+Ox3, euthymic affect Discharge Data Allergies Allergy/AdvReac Type Severity Reaction Status Date / Time Penicillins Allergy Intermediate RASH;HIVES Verified 05/15/19 19:38 Sulfa (Sulfonamide Allergy Intermediate RASH;HIVES Verified 05/15/19 19:38 Antibiotics) Consultations 05/15/19 20:45 ED Decision to Admit Stat Hospital Course (1) Chest pain: 53-year-old male with history of CAD status post cath in 2013 with 3 stents and OM1 and 1 and LAD presents with chest pain in the setting of productive cough and viral URI symptoms that started 5 days ago. PMHx: CAD status post cath in 2013 with 3 stents and OM1 and 1 and LAD, repeat cath and January 2018 with 30% occlusion only, hypertension, hyperlipidemia, anxiety, GERD, overactive bladder, BPH Chest Pain - Pain was pressure like, over the chest, constant for > 24 hours, non- radiating, no diaphoresis or shortness of breath - Chest pain likely in the setting of cough and viral upper respiratory symptoms - Troponin negative x 3 - EKG: Normal sinus rate [address] or T wave changes - Echo 09/2018: EF 45 to 50%, regional wall motion abnormality-mild hypokinesis of lateral anterior and basal portions of posterior wall - D-dimer negative - Received nitro x1 aspirin 325 mg and Tylenol 1 g in the ED with improvement in pain - Monitored overnight on Telemetry with no acute findings Viral URI - Influenza negative - Chest x-ray negative with normal pulmonary exam - Trevon Collado to help with cough - Improvement with Albuterol nebs so discharged with Albuterol MDI Hypertension - Continue home amlodipine and lisinopril CAD/hyperlipidemia - Continue rosuvastatin and aspirin GERD - Continue pantoprazole Anxiety - Continue buspirone BPH/overactive bladder - Continue tamsulosin and solifenacin (2) Cough: (3) Coronary artery disease: (4) BPH (benign prostatic hyperplasia): (5) GERD (gastroesophageal reflux disease): (6) HTN (hypertension): (7) Hx of cardiac cath: (8) HLD (hyperlipidemia): (9) Anxiety: Total Time Total Time Spent Total Time Spent (In Minutes): > 30 minutes Supervising Physician Co-Signing Physician Notes I personally examined the patient and verified all ovalle points of history and ex am, discussed case, and agree with decision making with Dr Bush. chest pain totally gone. lasted for days. enzymes negative. bad URI. feels up to going home vitals noted nad breathing unlabored no pallor or icterus. enzymes negative, EKG noted. old records reviewed - see discussion on my date of discharge last admission - cath not that long ago with no significantly tight obstructive disease - making him in the range of STEMI or noncardiac. given duration of sx and negative enzymes - noncardiac. chest pain - likley related to URI/chest congestion - stable for home. outpt f/u. Resident Activity Tracking Resident Involvement: Resident Care Provided Care Provided: Adult Hospital Medicine
[2019-05-16] MEDS ORDERED: ROSUVASTATIN CALCIUM 10 MG TAB PO SCH (21:00)
[2019-05-16] MEDS ORDERED: ASPIRIN 81 MG ECTAB PO SCH (21:00)
== END 2019-05-16 11:50 | disposition home or self-care (01) ==
LOC: ED 18:49 → 2S 18:49 → SUATTDRO 21:39 → 2S 22:22

== ENCOUNTER 2021-04-28 18:06 | Observation (INO) ==
[2021-04-28] MEDS ORDERED: ASPIRIN CHEW 324 MG PO STA (20:04)
[2021-04-28 20:14] LABS: Basophils # (auto) 0.03 K/uL (0-0.2); Basophils % (auto) 0.4 %; Eosinophils # (auto) 0.14 K/uL (0-0.5); Hematocrit (blood only) 47.2 % (42-52); Hemoglobin 16.4 g/dL (14.0-18.0); Immature Granulocytes # (auto) 0.01 K/uL (0.00-0.02); Immature Granulocytes % (auto) 0.1 %; Lymphocytes # (auto) 2.26 K/uL (1.2-3.4); Lymphocytes % (auto) 32.2 %; Mean Corpuscular Hemoglobin 29.3 pg (25-34); Mean Corpuscular Hgb Conc 34.7 g/dL (32-36); Mean Corpuscular Volume 84.3 fL (80-100); Mean Platelet Volume 9.1 fL (7.4-10.4); Monocytes # (auto) 0.48 K/uL (0.11-0.59); Monocytes % (auto) 6.8 %; Neutrophils # (auto) 4.09 K/uL (1.4-6.5); Neutrophils % (auto) 58.5 %; Platelet Count 166 K/uL (130-400); RDW Standard Deviation 39.4 fL (36.4-46.3); White Blood Count 7.01 K/uL (4.8-10.8)
[2021-04-28 20:25] LABS: Partial Thromboplastin Ratio 0.9; Partial Thromboplastin Time 24.9 Seconds (21.0-31.0); Prothrombin Time 9.7 Seconds (9.0-12.0)
[2021-04-28 20:36] LABS: Alanine Aminotransferase 43 U/L (12-78); Aspartate Aminotransferase 19 U/L (15-37); BUN Creatinine Ratio 17.7 (10-20); Blood Urea Nitrogen 21 mg/dl (7-18); Calcium 9.1 mg/dl (8.5-10.1); Carbon Dioxide 31 mmol/L (21-32); Chloride 104 mmol/L (98-107); Est GFR (African American) 79.5 ml/min; Est GFR (Non-African American) 68.6 ml/min; Glucose 80 mg/dl (70-99); Lipase 233 U/L (73-393); Potassium 3.5 mmol/L (3.5-5.1); Sodium 140 mmol/L (136-145)
[2021-04-28 20:41] LABS: Albumin Globulin Ratio 1.1 (0.9-2); Alkaline Phosphatase 63 U/L (45-117); Bilirubin,Total 0.3 mg/dl (0.2-1); Globulin 3.7 gm/dl (2.5-4.0); Total Protein 7.7 gm/dl (6.4-8.2); Troponin I < 0.015 ng/ml (0-0.045)
[2021-04-28 20:46] LABS: Appearance Urine Clear (Clear); Bilirubin Urine Negative (Negative); Blood Urine Negative (Negative); Color Urine Yellow; Glucose Urine UA Negative (Negative); Ketones Urine Negative (Negative); Leukocyte Esterase Urine Negative (Negative); Nitrite Urine Negative (Negative); Protein Urine Negative (Negative); Specific Gravity Urine 1.021 (1.000-1.030); Urobilinogen Urine Negative (Negative)
--- NOTE | 2021-04-28 21:09 | Emergency Department Note ---
Impression & Plan Chest pain, Abnormal EKG ED Provider Note NAME: BILL LCAIRE AGE: 55 SEX: M : 1965 ARRIVES VIA: Walk-In INFORMANT: Patient, ED PROVIDER(S): Stephon Macdonald DO CHIEF COMPLAINT: Chest pain HPI: The patient is a 55-year-old male who presented to the emergency department for an evaluation of chest discomfort. The patient describes anterior chest discomfort which he describes as a pressure. He denies having any lower extre mity swelling but does complain of some shortness of breath and cough. Initially the patient was diagnosed with a bronchitis/pneumonia and was started on an antibiotic. Symptoms did not significantly improve and the patient called his family doctor. He was evaluated today and had an EKG as well as some laboratory studies and a chest x-ray. The patient was referred to the emergency department because of EKG changes that were new compared to previous EKG. At this time the patient does still states he has ongoing chest pain. He denies having any fever but he does feel subjectively warm as well as chills. He denies having any nausea or vomiting. He denies having any abdominal pain. The patient's last cardiac catheterization was a few years ago. At that time he did not receive any cardiac stenting. ROS: See above HPI for pertinent positives & negatives. A total of 10 systems reviewed and were otherwise negative. PAST MEDICAL HISTORY: See Below PAST SURGICAL HISTORY: See Below FAMILY HISTORY: See Below SOCIAL HISTORY: See Below HOME MEDICATIONS: See Below ALLERGIES: See Below VITALS: See Below PHYSICAL EXAMINATION: GENERAL: Patient is awake alert in no acute distress patient is resting comfortably and showing no signs of anxiety EYES: The conjunctivae are clear. The pupils are round and reactive. EARS, NOSE, MOUTH AND THROAT: The nose is without any evidence of any deformity. NECK: The neck is nontender and supple. RESPIRATORY: Normal respiratory effort is noted there is no evidence of wheezing rhonchi or rales CARDIOVASCULAR: Regular rate and rhythm noted there no murmurs rubs or gallops normal S1 normal S2. GASTROINTESTINAL: The abdomen is soft. Abdomen is nontender. MUSCULOSKELETAL/EXTREMITIES: There is no evidence of gross deformity full range of motion is noted in the hips and shoulders. SKIN: There is no obvious evidence of any rash. There are no petechiae, pallor or cyanosis noted. NEUROLOGIC: Patient is awake alert and oriented x3. MEDICAL DECISION MAKING: The patient is a 55-year-old male who presented to the emergency department for chest pain. He also had upper respiratory symptoms. The patient saw his family doctor today and had outpatient work-up including EKG. EKG appears to be change compared to previous. He was sent to the emergency department for further evalu ation. Despite having ongoing symptoms for greater than 6 hours the patient's troponin was negative. I discussed the patient's laboratory and radiographic studies with him. I also discussed the limitations of the emergency department work-up for chest pain with him. Ultimately I also discussed his case with the on-call [facility]. They have agreed to evaluate the patient in the emergency department for further management and disposition. The patient was treated with aspirin and nitroglycerin in the emergency department. Triage Nursing notes reviewed. Prior medical records reviewed Vital Signs: reviewed and remarkable for bradycardia. Differential diagnosis: Cardiac ischemia, aortic dissection, pulmonary embolism, pneumothorax, pneumonia, pericarditis, myocarditis, esophageal rupture, GERD, cholecystitis, pancreatitis, musculoskeletal, as well as other pathologies. ER treatment provided: See below Diagnostics interpreted by me: ECG: EKG was obtained in the emergency department. My interpretation is normal sinus rhythm at 70 bpm. There is no ectopy. Inferior and low lateral ST depressions were noted. This was compared to a tracing from January 26, 2019. The lateral ST segment abnormalities are new compared to the previous tracing however the inferior changes appear consistent. A second EKG was obtained in the emergency department. My interpretation is sinus bradycardia 57 bpm. There was some improvement of the previously noted ST segment abnormalities. Cardiac Monitoring: An order was placed for continuous cardiac monitoring. The monitor shows a rate of 60 bpm with sinus bradycardia rhythm. Laboratory studies: As stated above and show below. Imaging studies: See below Consultation(s): I discussed this case with Dr. Hyatt who is on-call for the [facility] group. She will evaluate the patient in the emergency department. Past Med/Surg History Medical History (Updated 04/28/21 @ 23:19 by Stephon Macdonald DO) BPH (benign prostatic hyperplasia) Cardiac murmur as child Chronic back pain Coronary artery disease follows Dr. Chastity Zarate GERD (gastroesophageal reflux disease) Heart disease Herniated cervical disc HTN (hypertension) Myocardial infarction 2014> 4 stents at [facility] Sleep apnea "borderline" no machine yet Surgical History History of colonoscopy History of discectomy lumbar> 2012 History of esophagogastroduodenoscopy (EGD) History of heart artery stent 4 in 2013 History of tooth extraction Hx of cardiac cath 2013 with 4 stents, 2018 at [facility] no stents Family History Father Diabetes Social History Smoking Status: Never smoker Second Hand Exposure: No; Hx Alcohol Use: No Hx Substance Use: No Preferred Language: Kyrgyz Communication Ability: Effective 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 Beliefs That Will Affect Care: None marital status: Current Living Situation: Spouse current occupational status: employed Feels Safe at Home: Yes Assistive Devices: Contacts and Glasses Allergies Allergies Allergy/AdvReac Type Severity Reaction Status Date / Time Penicillins Allergy Intermediate RASH;HIVES Verified 04/28/21 21:04 Sulfa (Sulfonamide Allergy Intermediate RASH;HIVES Verified 04/28/21 21:04 Antibiotics) Home Meds Home Medications Medication Instructions Recorded Confirmed aspirin 81 mg PO HS 10/17/18 04/28/21 pantoprazole 40 mg PO QAM 10/17/18 04/28/21 buspirone 5 mg PO QAM 05/15/19 04/28/21 coenzyme Q10 [CoQ-10] 100 mg PO QAM 08/07/20 04/28/21 diclofenac sodium 2 g TOPICAL QID PRN 08/07/20 04/28/21 omeprazole 20 mg PO PM 08/07/20 04/28/21 tramadol 50 mg PO BID PRN 08/07/20 04/28/21 azithromycin 500 mg PO DIRECTED 04/28/21 04/28/21 hydrochlorothiazide 25 mg PO DAILY 04/28/21 04/28/21 lisinopril 40 mg PO HS 04/28/21 04/28/21 rosuvastatin 5 mg PO DAILY 04/28/21 04/28/21 Results & Data (ED) Vital Signs Vital Signs - 24 hr 04/28/21 18:13 04/28/21 20:00 04/28/21 20:23 Temperature 36.9 C Temperature Source Temporal Artery Scan Pulse Rate 74 56 L 60 Pulse Rate from SpO2 Sensor 56 L Pulse Rhythm Regular Regular Pulse Strength Normal Respiratory Rate 18 17 16 Respiratory Effort / Characteristics Non-Labored Spontaneous Respiratory Depth Normal Respiratory Pattern Regular Blood Pressure 154/103 H Blood Pressure Mean 120 Pulse Oximetry 98 100 99 Oxygen Delivery Method Room Air Room Air Sepsis Recent Fever Within 48 Hours No Sepsis New/Unexplained Change in Mental Status No Sepsis Action Taken by Nursing No Action Required 04/28/21 21:00 04/28/21 21:30 04/28/21 21:48 Temperature Temperature Source Pulse Rate 55 L 68 60 Pulse Rate from SpO2 Sensor 55 L 69 58 L Pulse Rhythm Pulse Strength Respiratory Rate 18 18 19 Respiratory Effort / Characteristics Respiratory Depth Respiratory Pattern Blood Pressure 147/95 H Blood Pressure Mean 112 Pulse Oximetry 98 98 99 Oxygen Delivery Method Sepsis Recent Fever Within 48 Hours Sepsis New/Unexplained Change in Mental Status Sepsis Action Taken by Nursing 04/28/21 21:49 04/28/21 21:51 04/28/21 22:30 Temperature Temperature Source Pulse Rate 68 75 57 L Pulse Rate from SpO2 Sensor 67 76 56 L Pulse Rhythm Pulse Strength Respiratory Rate 18 21 16 Respiratory Effort / Characteristics Respiratory Depth Respiratory Pattern Blood Pressure 133/97 133/97 Blood Pressure Mean 109 109 Pulse Oximetry 99 97 99 Oxygen Delivery Method Sepsis Recent Fever Within 48 Hours Sepsis New/Unexplained Change in Mental Status Sepsis Action Taken by Nursing 04/28/21 23:00 Temperature Temperature Source Pulse Rate 54 L Pulse Rate from SpO2 Sensor 54 L Pulse Rhythm Pulse Strength Respiratory Rate 17 Respiratory Effort / Characteristics Respiratory Depth Respiratory Pattern Blood Pressure Blood Pressure Mean Pulse Oximetry 96 Oxygen Delivery Method Sepsis Recent Fever Within 48 Hours Sepsis New/Unexplained Change in Mental Status Sepsis Action Taken by [facility] Medications Current Medication List: was personally reviewed by me Laboratory Data Attestation: I reviewed the patient's lab results. Result diagrams: 04/28/21 20:00 04/28/21 20:00 Lab Results 04/28/21 04/28/21 04/28/21 Range/Units 20:00 20:00 20:00 WBC 7.01 (4.8-10.8) K/uL RBC 5.60 (4.7-6.1) M/uL Hgb 16.4 (14.0-18.0) g/dL Hct 47.2 (42-52) % MCV 84.3 (80-100) fL MCH 29.3 (25-34) pg MCHC 34.7 (32-36) g/dL RDW Std Deviation 39.4 (36.4-46.3) fL RDW Coeff of Nina 13.0 (11.5-14.5) % Plt Count 166 (130-400) K/uL MPV 9.1 (7.4-10.4) fL Immature Gran % (Auto) 0.1 % Neut % (Auto) 58.5 % Lymph % (Auto) 32.2 % Bracken % (Auto) 6.8 % Eos % (Auto) 2.0 % Baso % (Auto) 0.4 % Neut # (Auto) 4.09 (1.4-6.5) K/uL Lymph # (Auto) 2.26 (1.2-3.4) K/uL Bracken # (Auto) 0.48 (0.11-0.59) K/uL Eos # (Auto) 0.14 (0-0.5) K/uL Baso # (Auto) 0.03 (0-0.2) K/uL Immature Gran # (Auto) 0.01 (0.00-0.02) K/uL PT 9.7 (9.0-12.0) Seconds INR 1.0 (0.9-1.1) APTT 24.9 (21.0-31.0) Seconds PTT Ratio 0.9 Sodium 140 (136-145) mmol/L Potassium 3.5 (3.5-5.1) mmol/L Chloride 104 (98-107) mmol/L Carbon Dioxide 31 (21-32) mmol/L Anion Gap 4.0 (3-11) BUN 21 H (7-18) mg/dl Creatinine 1.20 (0.6-1.4) mg/dl Est Cr Clr Drug Dosing Not Reportable Est GFR ( Amer) 79.5 ml/min Est GFR (Non-Af Amer) 68.6 ml/min BUN/Creatinine Ratio 17.7 (10-20) Glucose 80 (70-99) mg/dl Calcium 9.1 (8.5-10.1) mg/dl Total Bilirubin 0.3 (0.2-1) mg/dl AST 19 (15-37) U/L ALT 43 (12-78) U/L Alkaline Phosphatase 63 (45-117) U/L Troponin I < 0.015 (0-0.045) ng/ml Total Protein 7.7 (6.4-8.2) gm/dl Albumin 4.0 (3.4-5.0) gm/dl Globulin 3.7 (2.5-4.0) gm/dl Albumin/Globulin Ratio 1.1 (0.9-2) Lipase 233 (73-393) U/L Urine Color Urine Appearance (Clear) Urine pH (4.5-7.5) Ur Specific [place] (1.000-1.030) Urine Protein (Negative) Urine Glucose (UA) (Negative) Urine Ketones (Negative) Urine Blood (Negative) Urine Nitrite (Negative) Urine Bilirubin (Negative) Urine Urobilinogen (Negative) Ur Leukocyte Esterase (Negative) COVID-19 Eval Order SARS-CoV-2 (PCR) (Negative) 04/28/21 04/28/21 04/28/21 Range/Units 20:00 20:25 20:25 WBC (4.8-10.8) K/uL RBC (4.7-6.1) M/uL Hgb (14.0-18.0) g/dL Hct (42-52) % MCV (80-100) fL MCH (25-34) pg MCHC (32-36) g/dL RDW Std Deviation (36.4-46.3) fL RDW Coeff of Nina (11.5-14.5) % Plt Count (130-400) K/uL MPV (7.4-10.4) fL Immature Gran % (Auto) % Neut % (Auto) % Lymph % (Auto) % Bracken % (Auto) % Eos % (Auto) % Baso % (Auto) % Neut # (Auto) (1.4-6.5) K/uL Lymph # (Auto) (1.2-3.4) K/uL Bracken # (Auto) (0.11-0.59) K/uL Eos # (Auto) (0-0.5) K/uL Baso # (Auto) (0-0.2) K/uL Immature Gran # (Auto) (0.00-0.02) K/uL PT (9.0-12.0) Seconds INR (0.9-1.1) APTT (21.0-31.0) Seconds PTT Ratio Sodium (136-145) mmol/L Potassium (3.5-5.1) mmol/L Chloride (98-107) mmol/L Carbon Dioxide (21-32) mmol/L Anion Gap (3-11) BUN (7-18) mg/dl Creatinine (0.6-1.4) mg/dl Est Cr Clr Drug Dosing Est GFR ( Amer) ml/min Est GFR (Non-Af Amer) ml/min BUN/Creatinine Ratio (10-20) Glucose (70-99) mg/dl Calcium (8.5-10.1) mg/dl Total Bilirubin (0.2-1) mg/dl AST (15-37) U/L ALT (12-78) U/L Alkaline Phosphatase (45-117) U/L Troponin I (0-0.045) ng/ml Total Protein (6.4-8.2) gm/dl Albumin (3.4-5.0) gm/dl Globulin (2.5-4.0) gm/dl Albumin/Globulin Ratio (0.9-2) Lipase (73-393) U/L Urine Color Yellow Urine Appearance Clear (Clear) Urine pH 5.0 (4.5-7.5) Ur Specific [place] 1.021 (1.000-1.030) Urine Protein Negative (Negative) Urine Glucose (UA) Negative (Negative) Urine Ketones Negative (Negative) Urine Blood Negative (Negative) Urine Nitrite Negative (Negative) Urine Bilirubin Negative (Negative) Urine Urobilinogen Negative (Negative) Ur Leukocyte Esterase Negative (Negative) COVID-19 Eval Order Covid19 at [facility] SARS-CoV-2 (PCR) NEGATIVE (Negative) Administered Medications Discontinued Medications Aspirin (Aspirin Chew 324 Mg) 324 mg PO NOW STA Stop: 04/28/21 20:05 Last Admin: 04/28/21 20:25 Dose: 324 mg Documented by: [id number] Nitroglycerin (Nitroglycerin Sl 0.4 Mg/Tab Tab) 0.4 mg SL NOW STA Stop: 04/28/21 21:30 Last Admin: 04/28/21 21:48 Dose: 0.4 mg Documented by: [id number] Discharge Plan Visit Data Chief Complaint: Chest Pain Stated Complaint: CHEST PAIN-DOC REF ED Provider: Stephon Macdonald Discharge Problem: Chest pain, Abnormal EKG Patient Disposition: Being Evaluated by Hospitalist Condition: Good Forms Stand Alone Forms: [facility] sendwithus Prescriptions Prescriptions: No Action buspirone 10 mg tablet 5 mg PO QAM RF: 0 tramadol 50 mg Tablet 50 mg PO BID PRN (Reason: Pain) RF: 0 coenzyme Q10 [CoQ-10] 100 mg Capsule 100 mg PO QAM RF: 0 diclofenac sodium 1 % Gel 2 g TOPICAL QID PRN (Reason: Pain) RF: 0 omeprazole 20 mg Tablet,Delayed Release (Dr/Ec) 20 mg PO PM RF: 0 aspirin 81 mg Tablet,Delayed Release (Dr/Ec) 81 mg PO HS RF: 0 pantoprazole 40 mg tablet,delayed release (DR/EC) 40 mg PO QAM RF: 0 azithromycin 500 mg tablet 500 mg PO DIRECTED RF: 0 hydrochlorothiazide 25 mg tablet 25 mg PO DAILY RF: 0 lisinopril 40 mg tablet 40 mg PO HS RF: 0 rosuvastatin 5 mg tablet 5 mg PO DAILY RF: 0 Referrals Referrals: Wale Aguayo DO [Primary Care Provider] - Discharge Problem: Chest pain Qualifiers: Chest pain type: unspecified Qualified Code(s): R07.9 - Chest pain, unspecified
[2021-04-28] MEDS ORDERED: NITROGLYCERIN SL 0.4 MG/TAB TAB SL STA (21:29)
--- NOTE | 2021-04-28 23:08 | History & Physical Report ---
Date of Service April 28, 2021 Assessment & Plan (1) Atypical chest pain: Ajith Mancilla is a 55-year-old male with past medical history significant for coronary artery disease s/p four-vessel stenting, chronic chest discomfort related to GERD, hypertension, hyperlipidemia; who presents for concerns of substernal chest pain that has been intermittent over 2 months with concern for worsening over the last several days. Atypical chest pain: -Concerning symptoms given extensive history of cardiac disease and some typical features despite atypical chronicity -EKG from this morning demonstrating concerns for inferior and lateral ST depressions new from previous EKG -Repeat EKG in ED demonstrating slight improvement of previously noted ST depressions from earlier today -CXR from prior to admission demonstrating no acute cardiopulmonary findings -Continue to trend troponins q8h overnight -Given extensive cardiac history with last known cardiac catheterization in 2018; concern whether this persistent chest discomfort represents narrowing of his coronary arteries -Last known stress test in 2018 -Cardiology consulted for consideration of potential need for stress test versus need for catheterization and evaluation of his drug-eluting stents -Patient's preference would be for this to be done at [facility] if not needing done emergently given previously having had catheterizations here and requiring transfer to [facility] for fixation in the past URI: -Seemingly no improvement in upper respiratory symptoms since initiation of azithromycin on 04/23 -Covid negative -CXR from prior to admission demonstrating no acute cardiopulmonary findings -Consideration for initiation with doxycycline should symptoms persist following cardiac work-up Hyperlipidemia: -Given recent stoppage of Crestor for intolerance due to myalgias will recheck lipid profile -Would recommend reinitiation on statin medication given extensive cardiac history Hypertension: -Continue home lisinopril 40 mg nightly and hydrochlorothiazide 25 daily Diet: Heart healthy CODE STATUS: Full code DVT prophylaxis: Lovenox daily (2) Cough: (3) HLD (hyperlipidemia): (4) Coronary artery disease: (5) Myocardial infarction: (6) GERD (gastroesophageal reflux disease): (7) Depression: (8) HTN (hypertension): History of Present Illness Primary Care Provider: Wale Aguayo DO Ajith Mancilla is a 55-year-old male with past medical history significant for coronary artery disease s/p four-vessel stenting, chronic chest discomfort related to GERD, hypertension, hyperlipidemia; who presents for concerns of substernal chest pain that has been intermittent over 2 months. 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 This seemed to be self- limited and he did not notice this continue regularly; at that time he was also having some myalgias from his lower extremities and the decision was made to stop his Crestor in an effort to reduce these myalgias. Additionally had lab evaluation including ESR CRP, rheumatoid factor, NEAL which ended up being negative. This then returned approximately 10 days ago, and was associated with some upper respiratory symptoms including a cough, nasal congestion, sore throat; who presented to urgent care where he was tested for strep and that was negative, ultimately went and saw his PCP for continued symptoms over 5 to 6 days at that point time he was Covid tested negative. And determination was that this was potentially a atypical pneumonia presentation. He did not think much of the chest discomfort as he assumed it was associated with the coughing that he was having. However this continued to worsen over the last 5 days since he is PCP on 04/23 and ultimately on evaluation in his PCPs office earlier today discussions about concerns given his extensive cardiac history that this could represent a atypical presentation of a myocardial infarction. In the ED he continued to have these chest pain symptoms that were subsequently relieved by nitroglycerin. He currently denies continued exertional chest pain, shortness of breath, nausea, vomiting, abdominal pain. Pain is not reproducible does not radiate, is currently a 4 out of 10 whereas prior to nitroglycerin it was an 8 or 9 out of 10. Allergies Allergy/AdvReac Type Severity Reaction Status Date / Time Penicillins Allergy Intermediate RASH;HIVES Verified 04/28/21 21:04 Sulfa (Sulfonamide Allergy Intermediate RASH;HIVES Verified 04/28/21 21:04 Antibiotics) Home Medications Medication Instructions Recorded Confirmed Type aspirin 81 mg PO HS 10/17/18 04/28/21 History pantoprazole 40 mg PO QAM 10/17/18 04/28/21 History buspirone 5 mg PO QAM 05/15/19 04/28/21 History coenzyme Q10 [CoQ-10] 100 mg PO QAM 08/07/20 04/28/21 History diclofenac sodium 2 g TOPICAL QID PRN 08/07/20 04/28/21 History omeprazole 20 mg PO PM 08/07/20 04/28/21 History tramadol 50 mg PO BID PRN 08/07/20 04/28/21 History azithromycin 500 mg PO DIRECTED 04/28/21 04/28/21 History hydrochlorothiazide 25 mg PO DAILY 04/28/21 04/28/21 History lisinopril 40 mg PO HS 04/28/21 04/28/21 History rosuvastatin 5 mg PO DAILY 04/28/21 04/28/21 History Past Med/Surg History Medical History BPH (benign prostatic hyperplasia) Cardiac murmur as child Chronic back pain Coronary artery disease follows Dr. Chastity Zarate GERD (gastroesophageal reflux disease) Heart disease Herniated cervical disc HTN (hypertension) Myocardial infarction 2014> 4 stents at [facility] Sleep apnea "borderline" no machine yet Surgical History History of colonoscopy History of discectomy lumbar> 2011 History of esophagogastroduodenoscopy (EGD) History of heart artery stent 4 in 2013 History of tooth extraction Hx of cardiac cath 2013 with 4 stents, 2018 at [facility] no stents Family History Father Diabetes Social History Smoking Status: Never smoker Second Hand Exposure: No; Hx Alcohol Use: No Hx Substance Use: No Preferred Language: Serbian Communication Ability: Effective Interventional Radiology Technologist Required: No Beliefs That Will Affect Care: None marital status: Current Living Situation: Spouse current occupational status: employed Other Information That Helps Us Care for You: No Feels Safe at Home: Yes Safety Concerns: Feels Safe At This Time Assistive Devices: Glasses Review of Systems Review of Systems: All systems reviewed & are unremarkable except as noted in HPI & below Physical Exam Constitutional: WD/WN, vitals as above Eyes: PERRL, conjunctivae normal, anicteric sclerae Respiratory: normal respiratory effort, lungs clear to auscultation Auscultation: no crackles, no rales, no rhonchi and no wheezes Cardiovascular: Rate/Rhythm: regular rate and regular rhythm Heart Sounds: no gallop, no murmur and no cardiac rub Vessels: normal peripheral pulses; no JVD Extremities: no edema Gastrointestinal (Abdomen): Inspection/Auscultation: normal bowel sounds; abdomen not distended Percussion/Palpation: abdomen soft; abdomen nontender and no guarding Musculoskeletal: no cyanosis or clubbing, extremities motor strength 5/5 Skin: no rashes, warm and dry Neurologic: PERRL, EOMI, accommodation nl, no face palsy, no dysarthria CN's II-XI intact bilaterally and moves all extremities Psychiatric: Orientation: alert and oriented x 3 Results & Data Results & Data ([facility]) Vital Signs (Past 12 Hours) Vital Signs Temp Pulse Resp BP Pulse Ox 04/28/21 21:51 75 21 133/97 97 04/28/21 21:49 68 18 133/97 99 04/28/21 21:48 60 19 147/95 H 99 04/28/21 21:30 68 18 98 04/28/21 21:00 55 L 18 98 04/28/21 20:23 60 16 99 04/28/21 20:00 56 L 17 100 04/28/21 18:13 36.9 C 74 18 154/103 H 98 Laboratory Results 04/28/21 04/28/21 04/28/21 Range/Units 20:25 20:25 20:00 WBC (4.8-10.8) K/uL RBC (4.7-6.1) M/uL Hgb (14.0-18.0) g/dL Hct (42-52) % MCV (80-100) fL MCH (25-34) pg MCHC (32-36) g/dL RDW Std Deviation (36.4-46.3) fL RDW Coeff of Nina (11.5-14.5) % Plt Count (130-400) K/uL MPV (7.4-10.4) fL Immature Gran % (Auto) % Neut % (Auto) % Lymph % (Auto) % [place] % (Auto) % Eos % (Auto) % Baso % (Auto) % Neut # (Auto) (1.4-6.5) K/uL Lymph # (Auto) (1.2-3.4) K/uL [place] # (Auto) (0.11-0.59) K/uL Eos # (Auto) (0-0.5) K/uL Baso # (Auto) (0-0.2) K/uL Immature Gran # (Auto) (0.00-0.02) K/uL PT (9.0-12.0) Seconds INR (0.9-1.1) APTT (21.0-31.0) Seconds PTT Ratio Sodium (136-145) mmol/L Potassium (3.5-5.1) mmol/L Chloride (98-107) mmol/L Carbon Dioxide (21-32) mmol/L Anion Gap (3-11) BUN (7-18) mg/dl Creatinine (0.6-1.4) mg/dl Est Cr Clr Drug Dosing Est GFR ( Amer) ml/min Est GFR (Non-Af Amer) ml/min BUN/Creatinine Ratio (10-20) Glucose (70-99) mg/dl Calcium (8.5-10.1) mg/dl Magnesium (1.8-2.4) mg/dl Total Bilirubin (0.2-1) mg/dl AST (15-37) U/L ALT (12-78) U/L Alkaline Phosphatase (45-117) U/L Troponin I (0-0.045) ng/ml Total Protein (6.4-8.2) gm/dl Albumin (3.4-5.0) gm/dl Globulin (2.5-4.0) gm/dl Albumin/Globulin Ratio (0.9-2) Lipase (73-393) U/L Urine Color Yellow Urine Appearance Clear (Clear) Urine pH 5.0 (4.5-7.5) Ur Specific [place] 1.021 (1.000-1.030) Urine Protein Negative (Negative) Urine Glucose (UA) Negative (Negative) Urine Ketones Negative (Negative) Urine Blood Negative (Negative) Urine Nitrite Negative (Negative) Urine Bilirubin Negative (Negative) Urine Urobilinogen Negative (Negative) Ur Leukocyte Esterase Negative (Negative) COVID-19 Eval Order Covid19 at [facility] SARS-CoV-2 (PCR) NEGATIVE (Negative) 04/28/21 04/28/21 04/28/21 Range/Units 20:00 20:00 20:00 WBC 7.01 (4.8-10.8) K/uL RBC 5.60 (4.7-6.1) M/uL Hgb 16.4 (14.0-18.0) g/dL Hct 47.2 (42-52) % MCV 84.3 (80-100) fL MCH 29.3 (25-34) pg MCHC 34.7 (32-36) g/dL RDW Std Deviation 39.4 (36.4-46.3) fL RDW Coeff of Nina 13.0 (11.5-14.5) % Plt Count 166 (130-400) K/uL MPV 9.1 (7.4-10.4) fL Immature Gran % (Auto) 0.1 % Neut % (Auto) 58.5 % Lymph % (Auto) 32.2 % [place] % (Auto) 6.8 % Eos % (Auto) 2.0 % Baso % (Auto) 0.4 % Neut # (Auto) 4.09 (1.4-6.5) K/uL Lymph # (Auto) 2.26 (1.2-3.4) K/uL [place] # (Auto) 0.48 (0.11-0.59) K/uL Eos # (Auto) 0.14 (0-0.5) K/uL Baso # (Auto) 0.03 (0-0.2) K/uL Immature Gran # (Auto) 0.01 (0.00-0.02) K/uL PT 9.7 (9.0-12.0) Seconds INR 1.0 (0.9-1.1) APTT 24.9 (21.0-31.0) Seconds PTT Ratio 0.9 Sodium 140 (136-145) mmol/L Potassium 3.5 (3.5-5.1) mmol/L Chloride 104 (98-107) mmol/L Carbon Dioxide 31 (21-32) mmol/L Anion Gap 4.0 (3-11) BUN 21 H (7-18) mg/dl Creatinine 1.20 (0.6-1.4) mg/dl Est Cr Clr Drug Dosing Not Reportable Est GFR ( Amer) 79.5 ml/min Est GFR (Non-Af Amer) 68.6 ml/min BUN/Creatinine Ratio 17.7 (10-20) Glucose 80 (70-99) mg/dl Calcium 9.1 (8.5-10.1) mg/dl Magnesium 2.3 (1.8-2.4) mg/dl Total Bilirubin 0.3 (0.2-1) mg/dl AST 19 (15-37) U/L ALT 43 (12-78) U/L Alkaline Phosphatase 63 (45-117) U/L Troponin I < 0.015 (0-0.045) ng/ml Total Protein 7.7 (6.4-8.2) gm/dl Albumin 4.0 (3.4-5.0) gm/dl Globulin 3.7 (2.5-4.0) gm/dl Albumin/Globulin Ratio 1.1 (0.9-2) Lipase 233 (73-393) U/L Urine Color Urine Appearance (Clear) Urine pH (4.5-7.5) Ur Specific [place] (1.000-1.030) Urine Protein (Negative) Urine Glucose (UA) (Negative) Urine Ketones (Negative) Urine Blood (Negative) Urine Nitrite (Negative) Urine Bilirubin (Negative) Urine Urobilinogen (Negative) Ur Leukocyte Esterase (Negative) COVID-19 Eval Order SARS-CoV-2 (PCR) (Negative) Medications Administered Current Inpatient Medications Acetaminophen (Acetaminophen 325 Mg Tab) 650 mg PO Q4H PRN PRN Reason: Pain or Fever Stop: 05/28/21 23:34 Al Hydrox/Mg Hydrox/Simethicone (Aluminum/Magnesium Susp 30 Ml Udc) 15 ml PO Q4H PRN PRN Reason: Dyspepsia Stop: 05/28/21 23:34 Aspirin (Aspirin 81 Mg Ectab) 81 mg PO HS ASIM Stop: 05/29/21 20:59 Buspirone HCl (Buspirone 5 Mg Tab) 5 mg PO QAM ASIM Stop: 05/29/21 08:59 Hydrochlorothiazide (Hydrochlorothiazide 25 Mg Tab) 25 mg PO DAILY ASIM Stop: 05/29/21 08:59 Lisinopril (Lisinopril 40 Mg Tab) 40 mg PO HS ASIM Stop: 05/29/21 20:59 Magnesium Hydroxide (Magnesium Hydroxide Susp 30 Ml Udc) 30 ml PO Q12H PRN PRN Reason: Constipation Stop: 05/28/21 23:34 Morphine Sulfate (Morphine Sulfate 2 Mg/Ml Carp) 2 mg IV Q30M PRN PRN Reason: Chest Pain Stop: 05/12/21 23:34 Nitroglycerin (Nitroglycerin Sl 0.4 Mg/Tab Tab) 0.4 mg SL UD PRN PRN Reason: Chest Pain Stop: 05/28/21 23:34 Ondansetron HCl (Ondansetron Inj 2 Mg/Ml 2 Ml Vial) 4 mg IV Q6H PRN PRN Reason: Nausea Stop: 05/28/21 23:34 Pantoprazole Sodium (Pantoprazole 40 Mg Tab) 40 mg PO QAM ASIM Stop: 05/29/21 08:59 Polyethylene Glycol (Polyethylene (Miralax) 17 Gm Pack) 17 gm PO DAILY PRN PRN Reason: Constipation Stop: 05/28/21 23:34 Tramadol HCl (Tramadol Hcl 50 Mg Tablet) 50 mg PO BID PRN PRN Reason: Pain Stop: 05/28/21 23:34 Supervising Physician Co-Signing Physician Notes Patient seen and examined, chart reviewed, case discussed with Dr. Gar and I agree with his assessment and plan as documented above. Briefly, patient is a 55-year-old female with history of coronary artery disease status post stent placement (2013, stents to OM1 and LAD) presenting with chest discomfort, somewhat exertional in nature. Patient also with some shortness of breath possibly in the setting of URI symptoms. On physical exam he is afebrile, bradycardic, hemodynamically stable, no acute distress. Resting upright in bed. Skinwarm, dry, intact, no rashes/lesions HEENTnormocephalic/atraumatic, moist mucous membranes, neck supple, no JVD Heart+ S1/S2, regular, bradycardic at 58, no murmur/rub/gallops, no chest wall tenderness with palpation Lungsequal air entry bilaterally, no rales/rhonchi/wheezing Abdomen+ bowel sounds, soft, nontender, nondistended Extremitieswarm, well-perfused, no clubbing/cyanosis/edema Labs and images reviewed. Electrolytes within normal limits. Troponin x1 = negative EKG from 13: 28 with slight depressions in inferior leads II, 3, aVF as well as nonspecific ST changes present in lateral leads which improved on repeat EKG Assessment/[id number] male with history of coronary artery disease status post stent placement, hypertension, hyperlipidemia presenting with ongoing chest discomfort.. Patient presently without chest discomfort. Troponin x1 = negative. Slight EKG changes present on initial study Observation with telemetry monitoring for ACS rule out Trend troponin If patient develops chest pain or elevation in troponin will initiate heparin drip Cardiology consultation appreciated Continue home lisinopril and HCTZ. Patient recently stopped Crestor due to myalgias. Will recheck lipid profile. Remainder of plan as above Resident Activity Tracking Resident Involvement: Resident Care Provided Care Provided: Adult Hospital Medicine (1) GERD (gastroesophageal reflux disease) Esophagitis presence: esophagitis presence not specified Qualified Code(s): K21.9 - Gastro-esophageal reflux disease without esophagitis
[2021-04-28] MEDS ORDERED: POLYETHYLENE (MIRALAX) 17 GM PACK PO PRN (23:35)
[2021-04-28] MEDS ORDERED: traMADol HCL 50 MG TABLET PO PRN (23:35)
[2021-04-28] MEDS ORDERED: ALUMINUM/MAGNESIUM SUSP 30 ML UDC PO PRN (23:35)
[2021-04-28] MEDS ORDERED: NITROGLYCERIN SL 0.4 MG/TAB TAB SL PRN (23:35)
[2021-04-28] MEDS ORDERED: ONDANSETRON INJ 2 MG/ML 2 ML VIAL IV PRN (23:35)
[2021-04-28] MEDS ORDERED: MAGNESIUM HYDROXIDE SUSP 30 ML UDC PO PRN (23:35)
[2021-04-28 23:53] LABS: Magnesium 2.3 mg/dl (1.8-2.4)
--- NOTE | 2021-04-29 00:48 | Billing Data ---
Date of Service April 28, 2021 Coding Level of Care Code 99950 OBS Care - Level 3
[2021-04-29 04:24] LABS: Basophils # (auto) 0.01 K/uL (0-0.2); Basophils % (auto) 0.1 %; Eosinophils # (auto) 0.17 K/uL (0-0.5); Eosinophils % (auto) 2.5 %; Hematocrit (blood only) 43.5 % (42-52); Hemoglobin 15.2 g/dL (14.0-18.0); Immature Granulocytes # (auto) 0.01 K/uL (0.00-0.02); Immature Granulocytes % (auto) 0.1 %; Lymphocytes # (auto) 2.73 K/uL (1.2-3.4); Lymphocytes % (auto) 39.9 %; Mean Corpuscular Hemoglobin 29.1 pg (25-34); Mean Corpuscular Hgb Conc 34.9 g/dL (32-36); Mean Corpuscular Volume 83.2 fL (80-100); Mean Platelet Volume 8.9 fL (7.4-10.4); Monocytes # (auto) 0.45 K/uL (0.11-0.59); Monocytes % (auto) 6.6 %; Neutrophils # (auto) 3.48 K/uL (1.4-6.5); Neutrophils % (auto) 50.8 %; Platelet Count 142 K/uL (130-400); RDW Coefficient of Variation 12.9 % (11.5-14.5); RDW Standard Deviation 38.8 fL (36.4-46.3); Red Blood Count 5.23 M/uL (4.7-6.1); White Blood Count 6.85 K/uL (4.8-10.8)
[2021-04-29] MEDS: MoRPHine SULFATE 2 MG/ML CARP IV PRN ×3 (04:37→06:50)
[2021-04-29 04:44] LABS: BUN Creatinine Ratio 17.9 (10-20); Blood Urea Nitrogen 18 mg/dl (7-18); Carbon Dioxide 29 mmol/L (21-32); Chloride 108 mmol/L (98-107); Creatinine Clr Calc Pharmacy 84.3 ml/min; Est GFR (African American) 101.6 ml/min; Est GFR (Non-African American) 87.7 ml/min; Glucose 81 mg/dl (70-99); Magnesium 2.2 mg/dl (1.8-2.4); Potassium 3.1 mmol/L (3.5-5.1); Sodium 141 mmol/L (136-145)
[2021-04-29 04:49] LABS: Chol HDL Ratio 4; Cholesterol 159 mg/dl (0-200); HDL Cholesterol 36 mg/dl; LDL Cholesterol Calculated 92 mg/dl; Phosphorus 2.9 mg/dl (2.5-4.9); Triglycerides 157 mg/dl (0-150); Troponin I < 0.015 ng/ml (0-0.045); VLDL Cholesterol 31 mg/dl
[2021-04-29] MEDS ORDERED: Heparin IV Adult Wt-Based Standard *NO* Bolus Protocol IV SCH (05:00)
[2021-04-29] MEDS ORDERED: HEPARIN SODIUM/DEXTROSE 25,000 UNITS/500 ML BAG IV SCH (05:16)
[2021-04-29] MEDS: NITROGLYCERIN 2% OINTMENT 30GM TUBE EXT SCH ×2 (05:57→12:50)
[2021-04-29] MEDS ORDERED: POTASSIUM CHLORIDE CRTAB 20 MEQ TABCR PO STA (06:00)
[2021-04-29 06:09] LABS: Creatine Kinase MB < 1.0 ng/ml (0.5-3.6)
[2021-04-29 06:09] LABS: Partial Thromboplastin Time 25.7 Seconds (21.0-31.0)
[2021-04-29] MEDS: POTASSIUM CHLORIDE / WTR 10 MEQ/100 ML PLCT IV SCH ×4 (06:15→09:38)
[2021-04-29 08:14] LABS: Prothrombin Time 10.2 Seconds (9.0-12.0)
[2021-04-29] MEDS ORDERED: hydroCHLOROthiazide 25 MG TAB PO SCH (09:00)
[2021-04-29] MEDS ORDERED: NON-FORMULARY MEDICATION (Coenzyme Q10 [Coq-10] 100 mg Capsule) PO SCH (09:00)
[2021-04-29] MEDS ORDERED: PANTOprazole 40 MG TAB PO SCH (09:00)
[2021-04-29] MEDS ORDERED: ENOXAPARIN INJ 40 MG/0.4 ML SYR SQ SCH (09:00)
[2021-04-29] MEDS ORDERED: busPIRone 5 MG TAB PO SCH (09:00)
--- NOTE | 2021-04-29 09:20 | Cardiology Consultation ---
Date of Consultation Patient was admitted with chest discomfort shortness of breath and a cough. He was treated as an outpatient with Zithromax for presumed upper respiratory tract infection. He did have productive sputum that was yellow-greenish in color. He notes yesterday he was just uncomfortable with chest discomfort and the night before sleeping he just could not get comfortable and sort of had diffuse chest discomfort it was not worse lying flat compared to sitting up. It is worse with a deep breath. He really has not been doing his 4 mile walk since he got sick. He notes he did get sick from his daughter and granddaughter. He denies any lower extremity edema denies any orthopnea. Interestingly he is 94% on 2 L here. He denies any palpitations or fluttering he denies any lightheadedness dizziness presyncope syncope. He is anxious. And he notes the chest discomfort given his extensive past cardiac history is just making him more anxious and more short of breath and having additional chest discomfort. The rest of a complete the review of systems is negative with the exception of ongoing arthritic discomfort. He notes with stopping his statin as an outpatient has had some improvement but it persists he also describes what is a sensation of feeling like his hands are swollen. April 29, 2021 History of Present Illness Attending Physician: Zeyad Hayden DO Allergies Allergy/AdvReac Type Severity Reaction Status Date / Time Penicillins Allergy Intermediate RASH;HIVES Verified 04/28/21 21:04 Sulfa (Sulfonamide Allergy Intermediate RASH;HIVES Verified 04/28/21 21:04 Antibiotics) Home Medications Medication Instructions Recorded Confirmed Type aspirin 81 mg PO HS 10/17/18 04/28/21 History pantoprazole 40 mg PO QAM 10/17/18 04/28/21 History buspirone 5 mg PO QAM 05/15/19 04/28/21 History coenzyme Q10 [CoQ-10] 100 mg PO QAM 08/07/20 04/28/21 History diclofenac sodium 2 g TOPICAL QID PRN 08/07/20 04/28/21 History omeprazole 20 mg PO PM 08/07/20 04/28/21 History tramadol 50 mg PO BID PRN 08/07/20 04/28/21 History azithromycin 500 mg PO DIRECTED 04/28/21 04/28/21 History hydrochlorothiazide 25 mg PO DAILY 04/28/21 04/28/21 History lisinopril 40 mg PO HS 04/28/21 04/28/21 History rosuvastatin 5 mg PO DAILY 04/28/21 04/28/21 History Patient History Medical History BPH (benign prostatic hyperplasia) Cardiac murmur as child Chronic back pain Coronary artery disease follows Dr. Chastity Zarate GERD (gastroesophageal reflux disease) Heart disease Herniated cervical disc HTN (hypertension) Myocardial infarction 2014> 4 stents at [place] Sleep apnea "borderline" no machine yet Surgical History History of colonoscopy History of discectomy lumbar> 2012 History of esophagogastroduodenoscopy (EGD) History of heart artery stent 4 in 2013 History of tooth extraction Hx of cardiac cath 2014 with 4 stents, 2018 at [facility] no stents Family History Father Diabetes Social History Smoking Status: Never smoker Second Hand Exposure: No; Hx Alcohol Use: No Hx Substance Use: No Preferred Language: American Communication Ability: Effective Curam Developer Required: No Beliefs That Will Affect Care: None marital status: Current Living Situation: Spouse current occupational status: employed Other Information That Helps Us Care for You: No Feels Safe at Home: Yes Safety Concerns: Feels Safe At This Time Assistive Devices: Oxygen - Continuous Results & Data ([facility]) Vital Signs (Past 12 Hours) Vital Signs Temp Pulse Pulse Resp BP BP Pulse Ox 04/29/21 07:30 89 04/29/21 07:11 36.7 C 56 L 18 128/82 96 04/29/21 03:47 36.7 C 52 L 18 108/75 96 04/29/21 00:55 52 L 04/28/21 23:30 36.5 C 58 L 18 137/96 98 04/28/21 23:17 129/92 04/28/21 23:00 54 L 17 96 04/28/21 22:30 57 L 16 99 04/28/21 21:51 75 21 133/97 97 04/28/21 21:49 68 18 133/97 99 04/28/21 21:48 60 19 147/95 H 99 04/28/21 21:30 68 18 98 He is awake alert and oriented x3 he is in no acute distress he does appear anxious. HEENT: 2+ carotid upstrokes normal to carotid bruits Lungs: He does cough with a deep breath he has coarse purse breath sounds bilaterally no rhonchi or wheezing Abdomen soft and tenderness and a positive bowel sounds extremities no clubbing cyanosis or edema's Psychiatric he appears anxious IMPRESSION: 1.He has an extensive history status post cardiac catheterization with 30% distal stenosis of the left main the previously placed stents in the OM and LAD were patent in January 2018 2. Status post angioplasty and stenting February 2014 with a 70% OM1 lesion and 80% mid LAD lesion status post 3 drug-eluting stents to OM1 and a stent placed in the mid LAD 3. Preserved left ventricular systolic function number 4. Stress echo January 2018 exercising 8 minutes and 30 seconds on a Maicol protocol achieving a heart rate of only 69% of max predicted for his age there were no EKG or echo changes to suggest ischemia 5. Hypertension 6. hyperlipidemia 7. anxiety 8. Recent treatment for upper respiratory tract infection with Zithromax He is very worried that his chest discomfort may be cardiac in etiology I think overall this is likely to be pulmonary and especially in light of his recent symptoms and the fact that he has a cough when he takes a deep breath and that is mild degree of hypoxemia. Given his extensive hearts his history and his concern I did recommend stress echocardiography to rule out ischemia today. If his stress echo is normal then is reassuring that his symptoms are noncardiac in etiology. He is planning to go to [place] for 2 weeks and I am sure this is playing a part in his concern as well. His heparin can be discontinued and I's already stopped it. He should remain on the rest of his medical regimen. We did discuss high potassium containing foods that he can eat as an outpatient in light of his low potassium related to hydrochlorothiazide.
[2021-04-29] MEDS: ACETAMINOPHEN 325 MG TAB PO PRN ×2 (10:39)
--- NOTE | 2021-04-29 13:28 | Medical Student Progress Note ---
Date of Service April 29, 2021 Assessment & Plan (1) Atypical chest pain: Ajith Mancilla is a 55-year-old male with past medical history significant for coronary artery disease s/p four-vessel stenting, chronic chest discomfort related to GERD, hypertension, hyperlipidemia; who presents for concerns of substernal chest pain that has been intermittent over 2 months with concern for worsening over the last several days. Atypical chest pain: -Concerning symptoms given extensive history of cardiac disease and some typical features despite atypical chronicity -EKG from this morning demonstrating concerns for inferior and lateral ST depressions new from previous EKG -Repeat EKG in ED demonstrating slight improvement of previously noted ST depressions from earlier today -CXR from prior to admission demonstrating no acute cardiopulmonary findings -Continue to trend troponins q8h overnight -Given extensive cardiac history with last known cardiac catheterization in 2018; concern whether this persistent chest discomfort represents narrowing of his coronary arteries -Last known stress test in 2018 -Cardiology consulted for consideration of potential need for stress test versus need for catheterization and evaluation of his drug-eluting stents -Patient's preference would be for this to be done at [place] if not needing done emergently given previously having had catheterizations here and requiring transfer to [facility] for fixation in the past URI: -Seemingly no improvement in upper respiratory symptoms since initiation of azithromycin on 04/23 -Covid negative -CXR from prior to admission demonstrating no acute cardiopulmonary findings -Consideration for initiation with doxycycline should symptoms persist following cardiac work-up Hyperlipidemia: -Given recent stoppage of Crestor for intolerance due to myalgias will recheck lipid profile -Would recommend reinitiation on statin medication given extensive cardiac history Hypertension: -Continue home lisinopril 40 mg nightly and hydrochlorothiazide 25 daily Diet: Heart healthy CODE STATUS: Full code DVT prophylaxis: Lovenox daily (2) Cough: (3) HLD (hyperlipidemia): (4) Coronary artery disease: (5) Myocardial infarction: (6) GERD (gastroesophageal reflux disease): Esophagitis presence: esophagitis presence not specified Qualified Code(s): K21.9 - Gastro-esophageal reflux disease without esophagitis (7) Depression: (8) HTN (hypertension): Admission and Anticipated Discharge Date Admission Date: April 28, 2021 Subjective Mr. Mancilla states that he continues to have chest pain which he describes as mid- sternal and pulsating. He states that he has had this same pain for about a week along with his respiratory symptoms. The pain is pleuritic and reproducible on palpation. He does not endorse He is voiding and ambulating well. Results & Data ([facility]) Vital Signs (Past 12 Hours) Vital Signs Temp Pulse Pulse Resp BP Pulse Ox 04/29/21 10:49 36.6 C 56 L 17 120/89 94 04/29/21 07:30 89 04/29/21 07:11 36.7 C 56 L 18 128/82 96 04/29/21 03:47 36.7 C 52 L 18 108/75 96
--- NOTE | 2021-04-29 15:22 | Discharge Summary ---
Date of Service April 29, 2021 Admission HPI Per Admitting Provider Ajith Mancilla is a 55-year-old male with past medical history significant for coronary artery disease s/p four-vessel stenting, chronic chest discomfort related to GERD, hypertension, hyperlipidemia; who presents for concerns of substernal chest pain that has been intermittent over 2 months. 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 This seemed to be self-limited and he did not notice this continue regularly; at that time he was also having some myalgias from his lower extremities and the decision was made to stop his Crestor in an effort to reduce these myalgias. Additionally had lab evaluation including ESR CRP, rheumatoid factor, NEAL which ended up being negative. This then returned approximately 10 days ago, and was associated with some upper respiratory symptoms including a cough, nasal congestion, sore throat; who presented to urgent care where he was tested for strep and that was negative, ultimately went and saw his PCP for continued symptoms over 5 to 6 days at that point time he was Covid tested negative. And determination was that this was potentially a atypical pneumonia presentation. He did not think much of the chest discomfort as he assumed it was associated with the coughing that he was having. However this continued to worsen over the last 5 days since he is PCP on 04/23 and ultimately on evaluation in his PCPs office earlier today discussions about concerns given his extensive cardiac history that this could represent a atypical presentation of a myocardial infarction. In the ED he continued to have these chest pain symptoms that were subsequently relieved by nitroglycerin. He currently denies continued exertional chest pain, shortness of breath, nausea, vomiting, abdominal pain. Pain is not reproducible does not radiate, is currently a 4 out of 10 whereas prior to nitroglycerin it was an 8 or 9 out of 10. Admission Exam Per Admitting Provider Constitutional: WD/WN, vitals as above Eyes: PERRL, conjunctivae normal, anicteric sclerae Respiratory: normal respiratory effort, lungs clear to auscultation Auscultation: no crackles, no rales, no rhonchi and no wheezes Cardiovascular: Rate/Rhythm: regular rate and regular rhythm Heart Sounds: no gallop, no murmur and no cardiac rub Vessels: normal peripheral pulses; no JVD Extremities: no edema Gastrointestinal (Abdomen): Inspection/Auscultation: normal bowel sounds; abdomen not distended Percussion/Palpation: abdomen soft; abdomen nontender and no guarding Musculoskeletal: no cyanosis or clubbing, extremities motor strength 5/5 Skin: no rashes, warm and dry Neurologic: PERRL, EOMI, accommodation nl, no face palsy, no dysarthria CN's II-XI intact bilaterally and moves all extremities Psychiatric: Orientation: alert and oriented x 3 Principal Diagnosis Chest pain Discharge Exam Constitutional: well-appearing, no acute distress CV: regular rhythm, no murmur appreciated, extremities well-perfused Resp: CTABL, slightly diminished air entry on the left, no wheezes/rales/rhonchi appreciated, no increased work of breathing Skin: warm, dry, no rash appreciated Neuro: AOx4, no focal neurological deficits appreciated Discharge Data Allergies Allergy/AdvReac Type Severity Reaction Status Date / Time Penicillins Allergy Intermediate RASH;HIVES Verified 04/28/21 21:04 Sulfa (Sulfonamide Allergy Intermediate RASH;HIVES Verified 04/28/21 21:04 Antibiotics) Consultations 04/28/21 21:57 ED Decision to Admit Stat 04/28/21 23:35 Consult Cardiology Routine Hospital Course (1) Atypical chest pain: Atypical chest pain Upon admission, repeat EKG showed improvement in the ST segment changes seen in the ED which had been concerning for ischemia. Initial and serial troponins were negative. Cardiology was consulted given patient's extensive cardiac history, and recommended stress echo. Stress echo revealed no stress-induced changes. Patient was discharged on hospital day one in stable condition with instructions for close PCP follow-up. URI Patient noted a lack of improvement in his URI symptoms since starting azithromycin after an outpatient appointment on 04/23. Patient was tested for covid in the ED which was negative. CXR showed no acute findings. PCP follow-up was recommended. Hyperlipidemia Patient's lipid profile was checked on admission, given his recent re-trial and failure of crestor therapy. Results were within normal limits with the exception of triglycerides at 157. PCP follow-up was recommended. Hypertension Patient's home antihypertensive regimen was continued upon admission. Patient was hemodynamically stable for the entirety of his hospitalization. Total Time Total Time Spent Total Time Spent (In Minutes): Less than 30 Discharge Plan Discharge Items Patient Disposition: Home - Self-Care Reason For Visit: CHEST PAIN Discharge Diagnosis: chest pain Condition on Discharge: Good Activity: Per Instructions section Non-emergency contact: Primary Care Provider Call non-emergency contact if: your symptoms worsen Follow-up/Referrals: Wale Aguayo DO [Primary Care Provider] - 05/07/21 1:00 pm (Your appoint ment will be with Dr. Duff) Jhoan Haywood DO [Physician] - (Dr. Haywood's office should call you 04/30/2021 to schedule your follow up appointment. If you do not hear from them please call [phone].) Diet: Heart Healthy Addtl Attending Provider Instructions: You were admitted for chest pain. You had a stress test which was negative. This means that you did not have a heart attack. You should have close follow up with Dr. Aguayo and Dr Haywood (the [employer]). None of your home medications were changed. Please come naveen kfor evaluation if you have recurrence of chest pain, trouble breathing, or heart palpitations. Pending Studies at Discharge: No Stand-Alone Forms: My im3D, Smoking Cessation Medications and DC Order Prescriptions: Continued buspirone 10 mg tablet 5 mg PO QAM RF: 0 tramadol 50 mg Tablet 50 mg PO BID PRN (Reason: Pain) RF: 0 coenzyme Q10 [CoQ-10] 100 mg Capsule 100 mg PO QAM RF: 0 diclofenac sodium 1 % Gel 2 g TOPICAL QID PRN (Reason: Pain) RF: 0 omeprazole 20 mg Tablet,Delayed Release (Dr/Ec) 20 mg PO PM RF: 0 aspirin 81 mg Tablet,Delayed Release (Dr/Ec) 81 mg PO HS RF: 0 pantoprazole 40 mg tablet,delayed release (DR/EC) 40 mg PO QAM RF: 0 azithromycin 500 mg tablet 500 mg PO DIRECTED RF: 0 hydrochlorothiazide 25 mg tablet 25 mg PO DAILY RF: 0 lisinopril 40 mg tablet 40 mg PO HS RF: 0 Discontinued rosuvastatin 5 mg tablet 5 mg PO DAILY RF: 0 Discharge Orders: Discharge Order (Routine); Ordered 04/29/21 Ordered By: Danica Gómez Admission Data Admit Date/Time: 04/28/21 23:16 Attending Provider: Zeyad Hayden Admit Provider: Ze Gar Primary Care Provider: Wale Aguayo Other Providers: Adeline Hyatt ; Jhoan Haywood Other Interventions: Discharge Summary Assessment (RN) Last Done: 04/29/21 14:32 Supervising Physician Co-Signing Physician Notes I personally examined the patient and verified all ovalle points of history and exam, discussed case, and agree with decision making with Dr Marin. Chest painnow feeling better. Has been treated for pneumoniastill has a cough and some rib related pain. Vitals noted, in general he is awake and alert pleasant no distress. HEENT normocephalic atraumatic mucous membranes moist. Breathing unlabored lungs are clear without rales rhonchi or wheezes. Questionably slightly diminished air entry on the left but otherwise good no accessory muscles. Skin shows no rashes no pallor or icterus. Chest painfortunately enzymes negative and stress test reassuringmost likely pain related to his cough/rib pain/recently treated pneumonia. Appears stable for home. In regards to his coronary disease, follows actively with both his PCP and motorcycle assembler, and right now his motorcycle assembler had just given a retrial of Crestgurpreet, unfortunately he failed. He will continue to follow with them. Resident Activity Tracking Resident Involvement: Resident Care Provided Care Provided: Adult Hospital Medicine
--- NOTE | 2021-04-29 15:43 | Billing Data ---
Date of Service April 29, 2021 Coding Level of Care Code 37673 OBS Care - Discharge
--- NOTE | 2021-04-29 19:12 | XCELERA ---
[id number]
[2021-04-29] MEDS ORDERED: lisinopril 40 MG TAB PO SCH (21:00)
[2021-04-29] MEDS ORDERED: ASPIRIN 81 MG ECTAB PO SCH (21:00)
--- NOTE | 2021-05-01 05:31 | Electrocardiogram Report ---
Test Reason : Blood Pressure : / mmHG Vent. Rate : 070 BPM Atrial Rate : 070 BPM P-R Int : 132 ms QRS Dur : 106 ms QT Int : 388 ms P-R-T Axes : 064 017 050 degrees QTc Int : 419 ms Normal sinus rhythm with sinus arrhythmia Nonspecific ST and T wave abnormality Abnormal ECG When compared with ECG of 28-APR-2021 13:28, No significant change Confirmed by Junior Torres ([id number]) on 05/01/2021 5:31:06 AM Referred By: REFERRED SELF Confirmed By:Junior Torres
--- NOTE | 2021-05-01 05:36 | Electrocardiogram Report ---
Test Reason : Blood Pressure : / mmHG Vent. Rate : 057 BPM Atrial Rate : 057 BPM P-R Int : 132 ms QRS Dur : 108 ms QT Int : 450 ms P-R-T Axes : 053 014 020 degrees QTc Int : 438 ms Sinus bradycardia Nonspecific ST and T wave abnormality Abnormal ECG When compared with ECG of 28-APR-2021 18:15, No significant change was found Confirmed by Junior Torres ([id number]) on 05/01/2021 5:35:26 AM Referred By: REFERRED SELF Confirmed By:Junior Torres
--- NOTE | 2021-05-01 05:43 | Electrocardiogram Report ---
Test Reason : Blood Pressure : / mmHG Vent. Rate : 056 BPM Atrial Rate : 056 BPM P-R Int : 132 ms QRS Dur : 114 ms QT Int : 446 ms P-R-T Axes : 055 017 028 degrees QTc Int : 430 ms Sinus bradycardia with sinus arrhythmia Nonspecific ST and T wave abnormality Abnormal ECG When compared with ECG of 28-APR-2021 21:30, ST elevation now present in Anterolateral leads T wave amplitude has increased in Anterolateral leads Confirmed by Junior Torres ([id number]) on 05/01/2021 5:43:12 AM Referred By: REFERRED SELF Confirmed By:Junior Torres
--- NOTE | 2021-05-01 05:44 | Electrocardiogram Report ---
Test Reason : Blood Pressure : / mmHG Vent. Rate : 068 BPM Atrial Rate : 068 BPM P-R Int : 136 ms QRS Dur : 110 ms QT Int : 418 ms P-R-T Axes : 048 013 011 degrees QTc Int : 444 ms Normal sinus rhythm Nonspecific ST and T wave abnormality Abnormal ECG When compared with ECG of 29-APR-2021 04:30, No significant change was found Confirmed by Junior Torres ([id number]) on 05/01/2021 5:43:48 AM Referred By: REFERRED SELF Confirmed By:Junior Torres
== END 2021-04-29 14:50 | disposition home or self-care (01) ==
LOC: 2E 18:06 → ED 18:06 → SUATTDRO 23:16 → 2E 23:23

== ENCOUNTER 2022-08-16 13:59 | Observation (INO) ==
[2022-08-16] MEDS ORDERED: NITROGLYCERIN 2% OINTMENT 30GM TUBE EXT STA (14:18)
[2022-08-16] MEDS ORDERED: HYDROmorphone INJ 0.5 MG/0.5 ML SYR IV STA (14:18)
[2022-08-16] MEDS ORDERED: ONDANSETRON INJ 2 MG/ML 2 ML VIAL IV STA (14:18)
[2022-08-16 14:28] LABS: Basophils # (auto) 0.04 K/uL (0-0.2); Basophils % (auto) 0.9 %; Eosinophils # (auto) 0.11 K/uL (0-0.50); Eosinophils % (auto) 2.5 %; Hematocrit (blood only) 46.3 % (40.1-51.0); Hemoglobin 15.7 g/dl (14.0-18.0); Immature Granulocytes # (auto) 0.01 K/uL (0.00-0.02); Immature Granulocytes % (auto) 0.2 %; Lymphocytes # (auto) 1.17 K/uL (1.2-3.4); Lymphocytes % (auto) 26.7 %; Mean Corpuscular Hgb Conc 33.9 g/dL (32.0-36.0); Mean Corpuscular Volume 85.4 fL (80.0-100.0); Mean Platelet Volume 9.3 fL (9.4-12.4); Monocytes # (auto) 0.34 K/uL (0.24-0.82); Monocytes % (auto) 7.8 %; Neutrophils # (auto) 2.71 K/uL (1.4-6.5); Neutrophils % (auto) 61.9 %; Platelet Count 150 K/uL (130-400); RDW Coefficient of Variation 13.3 % (11.5-14.5); Red Blood Count 5.42 M/uL (4.63-6.08); White Blood Count 4.38 K/ul (4.8-10.8)
--- NOTE | 2022-08-16 14:28 | Emergency Department Note ---
Impression & Plan Precordial chest pain, History of coronary artery disease ED Provider Note NAME: BILL CLAIRE AGE: 57 SEX: M : 1965 ARRIVES VIA: Ambulance INFORMANT: [Patient][ems, nurses] ED PROVIDER(S): [Bong Fagan MD] CHIEF COMPLAINT: Chest pain HISTORY OF PRESENT ILLNESS: The patient is a 57-year-old male who presents to the ER with central chest pain and numbness in both arms. The pain started just prior to arrival while the patient was at work. He was walking and developed the discomfort. He took 2 of his own nitroglycerin without relief. EMS was summoned. He was given 1 nitroglycerin by EMS and 4 baby aspirin, chest pain persisted. He was given 4 mg of morphine IV and 4 mg of Zofran IV in route, this also did not help the pain. Patient did feel short of breath with the pain, no sweating or nausea. He does have a history of coronary stenting. He has 4 stents placed in 2013. Lately, he has been in baseline health. No cough, cold or congestion. No recent chest pain or dyspnea on exertion. He typically walks 3 or so miles several times a week without difficulty. REVIEW OF SYSTEMS: See HPI for pertinent positives and negatives. A total of ten systems were reviewed and were otherwise negative. PMHx/PSHx: See Below SOCIAL HISTORY: See Below. PHYSICAL EXAM: GENERAL: Patient is in no acute distress. HEENT: No acute trauma, normocephalic atraumatic, mucous membranes moist, no nasal congestion, no scleral icterus. NECK: No stridor, no adenopathy, no meningismus, trachea is midline. LUNGS: Clear to auscultation bilaterally, no wheeze, no rhonchi, breath sounds equal. HEART: Subtle systolic murmur, regular rate and rhythm. Chest: Nontender chest wall. ABDOMEN: Soft, nontender, bowel sounds positive, no peritonitis. EXTREMITIES: No cyanosis or edema, full range of motion of all the joints without pain or difficulty, no signs for acute trauma. NEUROLOGIC: Oriented x 3, no acute motor or sensory deficits, no focal weakness. SKIN: No rash, no jaundice, no diaphoresis. DIFFERENTIAL DIAGNOSIS: Cardiac ischemia, aortic dissection, pulmonary embolism, pneumothorax, pneumonia, pericarditis, myocarditis, esophageal rupture, GERD, cholecystitis, pancreatitis, musculoskeletal, as well as other pathologies. EMERGENCY DEPARTMENT COURSE/PROCEDURES: ECG: Indication was chest pain. The ECG shows a normal sinus rhythm with a rate of 63. There is some nonspecific ST change. There is no ST elevation, no PVCs. The QTc is 415. Compared to an ECG from 29 April 2021, there is no significant change. Continuous Cardiac Monitoring: An order was placed for continuous cardiac monitoring. The monitor shows a rate of 60 with normal sinus rhythm. MEDICAL DECISION MAKING: There is no leukocytosis or concerning anemia. There is a normal platelet count. No coagulopathy. No renal failure or significant electrolyte abnorm ality. No concerning liver enzyme elevation. No evidence for pancreatitis. ECG shows a normal sinus rhythm, no obvious ischemia, no ST elevation. Cardiac enzyme testing x1 is not consistent with acute cardiac injury. Chest film does not show mediastinal widening, pneumonia or pneumothorax. COVID test returned negative. The patient was given IV Zofran,nitroglycerin paste, a dose of IV Dilaudid. He feels a bit better. The patient has known coronary disease and presents with chest discomfort. Further cardiac work-up is warranted. I spoke with the patient, I spoke with case management, the on-call hospitalist has been consulted. Past Med/Surg History Medical History BPH (benign prostatic hyperplasia) Cardiac murmur as child Chronic back pain Depression GERD (gastroesophageal reflux disease) Heart disease Herniated cervical disc HTN (hypertension) Sleep apnea "borderline" no machine yet Surgical History History of colonoscopy History of discectomy lumbar> 2011 History of esophagogastroduodenoscopy (EGD) History of heart artery stent 4 in 2013 History of tooth extraction Hx of cardiac cath 2013 with 4 stents, 2018 at [facility] no stents Family History Father Diabetes Social History Smoking Status: Never smoker Second Hand Exposure: No; Do You Dip or Chew Tobacco: No; Tobacco Cessation Education Requested by Patient: No Hx Alcohol Use: No Hx Substance Use: No Preferred Language: French Communication Ability: Effective 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 Beliefs That Will Affect Care: None marital status: Current Living Situation: Spouse current occupational status: employed Other Information That Helps Us Care for You: No Feels Safe at Home: Yes Safety Concerns: Feels Safe At This Time Assistive Devices: Contacts and Glasses Assistive Devices Comment: CONTACTS Allergies Allergies Allergy/AdvReac Type Severity Reaction Status Date / Time Penicillins Allergy Intermediate RASH;HIVES Verified 08/16/22 16:07 Sulfa (Sulfonamide Allergy Intermediate RASH;HIVES Verified 08/16/22 16:07 Antibiotics) Home Meds Home Medications Medication Instructions Recorded Confirmed aspirin 81 mg tablet,delayed 81 mg PO HS 10/17/18 08/16/22 release pantoprazole 40 mg tablet,delayed 40 mg PO QAM 10/17/18 08/16/22 release buspirone 10 mg tablet 10 mg PO QAM 05/15/19 08/16/22 coenzyme Q10 100 mg capsule 100 mg PO QAM 08/07/20 08/16/22 (CoQ-10) omeprazole 20 mg tablet,delayed 20 mg PO PM 08/07/20 08/16/22 release tramadol 50 mg tablet 50 mg PO BID PRN Pain 08/07/20 08/16/22 hydrochlorothiazide 25 mg tablet 25 mg PO DAILY 04/28/21 08/16/22 gabapentin 300 mg capsule 300 mg PO QAM 08/16/22 08/16/22 gabapentin 300 mg capsule 600 mg PO QPM 08/16/22 08/16/22 lisinopril 30 mg tablet 30 mg PO HS 08/16/22 08/16/22 rosuvastatin 5 mg tablet 5 mg PO QPM 08/16/22 08/16/22 Results & Data (ED) Vital Signs Vital Signs - 24 hr 08/16/22 14:17 08/16/22 14:23 08/16/22 14:23 Temperature 36.7 C 37.0 C Temperature Source Oral Oral Pulse Rate 60 60 Pulse Rate [Radial] 60 Pulse Rhythm Regular Regular Pulse Rhythm [Radial] Regular Pulse Strength Normal Pulse Strength [Radial] Normal Respiratory Rate 18 18 18 Respiratory Effort / Characteristics Non-Labored Spontaneous Non-Labored Spontaneous Respiratory Depth Normal Normal Respiratory Pattern Regular Regular Blood Pressure 123/81 Blood Pressure [Right Arm] 123/81 Blood Pressure Mean 95 Blood Pressure Mean [Right Arm] 95 Blood Pressure Position Lying Blood Pressure Position [Right Arm] Lying Pulse Oximetry 97 97 97 Oxygen Delivery Method Room Air Room Air Room Air Sepsis Recent Fever Within 48 Hours No Sepsis New/Unexplained Change in Mental Status No Sepsis Action Taken by Nursing No Action Required Home Medications Current Medication List: was personally reviewed by me Laboratory Data Attestation: I reviewed the patient's lab results. Result diagrams: 08/16/22 14:15 08/16/22 14:15 Lab Results 08/16/22 08/16/22 08/16/22 Range/Units 14:15 14:15 14:15 WBC 4.38 L (4.8-10.8) K/ul RBC 5.42 (4.63-6.08) M/uL Hgb 15.7 (14.0-18.0) g/dl Hct 46.3 (40.1-51.0) % MCV 85.4 (80.0-100.0) fL MCH 29.0 (25.0-34.0) pg MCHC 33.9 (32.0-36.0) g/dL RDW Std Deviation 41.0 (36.4-46.3) fL RDW Coeff of Nina 13.3 (11.5-14.5) % Plt Count 150 (130-400) K/uL MPV 9.3 L (9.4-12.4) fL Immature Gran % (Auto) 0.2 % Neut % (Auto) 61.9 % Lymph % (Auto) 26.7 % [place] % (Auto) 7.8 % Eos % (Auto) 2.5 % Baso % (Auto) 0.9 % Neut # (Auto) 2.71 (1.4-6.5) K/uL Lymph # (Auto) 1.17 L (1.2-3.4) K/uL [place] # (Auto) 0.34 (0.24-0.82) K/uL Eos # (Auto) 0.11 (0-0.50) K/uL Baso # (Auto) 0.04 (0-0.2) K/uL Immature Gran # (Auto) 0.01 (0.00-0.02) K/uL PT 10.8 (9.0-12.0) Seconds INR 1.0 (0.9-1.1) APTT 27.7 (21.0-31.0) Seconds PTT Ratio 1.0 Sodium 140 (136-145) mmol/L Potassium 3.5 (3.5-5.1) mmol/L Chloride 103 (98-107) mmol/L Carbon Dioxide 32 (21-32) mmol/L Anion Gap 5 (3-11) BUN 14 (6-23) mg/dl Creatinine 1.23 (0.6-1.4) mg/dl Est Cr Clr Drug Dosing 70.2 ml/min Est GFR ( Amer) 76.1 ml/min Est GFR (Non-Af Amer) 65.7 ml/min BUN/Creatinine Ratio 11.4 (10-20) Glucose 60 L (70-99(Fasting)) mg/dl Calcium 9.4 (8.5-10.1) mg/dl Magnesium 2.3 (1.7-2.4) mg/dl Total Bilirubin 0.6 (0.2-1.0) mg/dl AST 16 (13-39) U/L ALT 19 (7-52) U/L Alkaline Phosphatase 47 (34-104) U/L Troponin I High Sens 3.6 (0-20) pg/ml Total Protein 6.7 (6.0-8.3) gm/dl Albumin 4.4 (3.4-5.0) gm/dl Globulin 2.3 L (2.5-4.0) gm/dl Albumin/Globulin Ratio 1.9 (0.9-2) Lipase 42 (11-82) U/L SARS-CoV-2, RNA, NAAT (NEGATIVE) 08/16/22 Range/Units 14:20 WBC (4.8-10.8) K/ul RBC (4.63-6.08) M/uL Hgb (14.0-18.0) g/dl Hct (40.1-51.0) % MCV (80.0-100.0) fL MCH (25.0-34.0) pg MCHC (32.0-36.0) g/dL RDW Std Deviation (36.4-46.3) fL RDW Coeff of Nina (11.5-14.5) % Plt Count (130-400) K/uL MPV (9.4-12.4) fL Immature Gran % (Auto) % Neut % (Auto) % Lymph % (Auto) % [place] % (Auto) % Eos % (Auto) % Baso % (Auto) % Neut # (Auto) (1.4-6.5) K/uL Lymph # (Auto) (1.2-3.4) K/uL [place] # (Auto) (0.24-0.82) K/uL Eos # (Auto) (0-0.50) K/uL Baso # (Auto) (0-0.2) K/uL Immature Gran # (Auto) (0.00-0.02) K/uL PT (9.0-12.0) Seconds INR (0.9-1.1) APTT (21.0-31.0) Seconds PTT Ratio Sodium (136-145) mmol/L Potassium (3.5-5.1) mmol/L Chloride (98-107) mmol/L Carbon Dioxide (21-32) mmol/L Anion Gap (3-11) BUN (6-23) mg/dl Creatinine (0.6-1.4) mg/dl Est Cr Clr Drug Dosing ml/min Est GFR ( Amer) ml/min Est GFR (Non-Af Amer) ml/min BUN/Creatinine Ratio (10-20) Glucose (70-99(Fasting)) mg/dl Calcium (8.5-10.1) mg/dl Magnesium (1.7-2.4) mg/dl Total Bilirubin (0.2-1.0) mg/dl AST (13-39) U/L ALT (7-52) U/L Alkaline Phosphatase (34-104) U/L Troponin I High Sens (0-20) pg/ml Total Protein (6.0-8.3) gm/dl Albumin (3.4-5.0) gm/dl Globulin (2.5-4.0) gm/dl Albumin/Globulin Ratio (0.9-2) Lipase (11-82) U/L SARS-CoV-2, RNA, NAAT NEGATIVE (NEGATIVE) Administered Medications Aspirin (Aspirin 81 Mg Ectab) 81 mg PO HS ASIM Stop: 09/15/22 20:59 Last Admin: 08/16/22 20:11 Dose: 81 mg Documented By: DENNIS Gabapentin (Gabapentin 300 Mg Cap) 600 mg PO HS ASIM Stop: 09/15/22 20:59 Last Admin: 08/16/22 20:11 Dose: 600 mg Documented By: DENNIS Heparin Sodium (Porcine) (Heparin Sod 5,000 Unit/0.5 Ml Vial) 5,000 units SQ Q12 ASIM Stop: 09/15/22 20:59 Last Admin: 08/16/22 20:11 Dose: Not Given Documented By: DENNIS Lisinopril (Lisinopril 10 Mg Tab) 30 mg PO HS ASIM Stop: 09/15/22 20:59 Last Admin: 08/16/22 20:11 Dose: 30 mg Documented By: DENNIS Rosuvastatin Calcium (Rosuvastatin Calcium 5 Mg Tab) 5 mg PO QPM ASIM Stop: 09/15/22 20:59 Last Admin: 08/16/22 20:11 Dose: 5 mg Documented By: DENNIS Discontinued Medications Hydromorphone HCl (Hydromorphone Inj 0.5 Mg/0.5 Ml Syr) 0.5 mg IV NOW STA Stop: 08/16/22 14:19 Last Admin: 08/16/22 14:32 Dose: 0.5 mg Documented By: BRENDA Nitroglycerin (Nitroglycerin 2% Ointment 30gm Tube) 1 inch EXT NOW STA Stop: 08/16/22 14:19 Last Admin: 08/16/22 14:31 Dose: 1 inch Documented By: BRENDA Ondansetron HCl (Ondansetron Inj 2 Mg/Ml 2 Ml Vial) 4 mg IV NOW STA Stop: 08/16/22 14:19 Last Admin: 08/16/22 14:32 Dose: 4 mg Documented By: BRENDA Imaging Data Radiologist's Impression: Chest X-Ray 08/16/22 14:19 XR chest 1V portable HISTORY: 57 years-old Male Chest Pain . Acute atypical chest pain COMPARISON: Chest radiographs 06/24/2021 TECHNIQUE: Portable AP view of the chest FINDINGS: Cardiomediastinal and hilar silhouettes are within normal limits. No pneumothorax, pleural effusion, airspace consolidation or overt pulmonary edema. Bones of the chest appear grossly intact. IMPRESSION: No acute process. ACT 112: Negative or not required by law. The above report was generated using voice recognition software. It may contain grammatical, syntax or spelling errors. Electronically signed by: Kole Lebron M.D. 08/16/2022 2:47 PM Discharge Plan Visit Data Chief Complaint: Cardiac Assessment ED Provider: Bong Fagan Discharge Problem: Precordial chest pain, History of coronary artery disease Patient Disposition: Admitted As Inpatient Condition: Good Discharge Instructions Interventions: ED Discharge Assessment Last Done: 08/16/22 17:50
[2022-08-16 14:43] LABS: Partial Thromboplastin Time 27.7 Seconds (21.0-31.0); Prothrombin Time 10.8 Seconds (9.0-12.0)
--- NOTE | 2022-08-16 14:48 | XRay Report ---
XR chest 1V portable HISTORY: 57 years-old Male Chest Pain . Acute atypical chest pain COMPARISON: Chest radiographs 06/24/2021 TECHNIQUE: Portable AP view of the chest FINDINGS: Cardiomediastinal and hilar silhouettes are within normal limits. No pneumothorax, pleural effusion, airspace consolidation or overt pulmonary edema. Bones of the chest appear grossly intact. IMPRESSION: No acute process. ACT 112: Negative or not required by law. The above report was generated using voice recognition software. It may contain grammatical, syntax o r spelling errors. Electronically signed by: Kole Lebron M.D. 08/16/2022 2:47 PM
[2022-08-16 14:57] LABS: Albumin Globulin Ratio 1.9 (0.9-2); Albumin Level 4.4 gm/dl (3.4-5.0); BUN Creatinine Ratio 11.4 (10-20); Bilirubin,Total 0.6 mg/dl (0.2-1.0); Calcium 9.4 mg/dl (8.5-10.1); Creatinine Clr Calc Pharmacy 70.2 ml/min; Est GFR (African American) 76.1 ml/min; Est GFR (Non-African American) 65.7 ml/min; Globulin 2.3 gm/dl (2.5-4.0); Magnesium 2.3 mg/dl (1.7-2.4); Potassium 3.5 mmol/L (3.5-5.1); Total Protein 6.7 gm/dl (6.0-8.3)
[2022-08-16 15:00] LABS: Troponin I High Sensitivity 3.6 pg/ml (0-20)
--- NOTE | 2022-08-16 15:35 | History & Physical Report ---
Date of Service August 16, 2022 Assessment & Plan (1) Chest pain: Plan: Patient with exertional chest pain with known coronary disease status postcardiac stents in 2013. Initial work-up is unrevealing patient will be observed have serial troponins and of stress testing on 08/17/2022 as long as enzymes trend normal and his pain does not recur and there are no EKG changes in the morning Be maintained on aspirin 81, Crestor, lisinopril and hydrochlorothiazide. May consider initiating metoprolol if pain recurs pts did have stress echo april 2012 that was negative (2) GERD (gastroesophageal reflux disease): Plan: Patient given a GI cocktail in the emergency department. He does take a PPI this to be continued (3) BPH (benign prostatic hyperplasia): Plan: Patient currently without lower urinary tract symptoms (4) Depression: Plan: Patient takes BuSpar for anxiety (5) Cervical radiculopathy: Plan: Patient recently started on Neurontin 300 morning 300 midday and 600 at bedtime (6) DVT prophylaxis: Plan: Heparin will be used for DVT prevention History of Present Illness Primary Care Provider: Wale Aguayo, 57-year-old male who presents to the ER with central chest pain and numbness in both arms. The pain started just prior to arrival while the patient was walking at work. He took 2 of his own nitroglycerin without relief. EMS was summoned. He was given 1 nitroglycerin by EMS and 4 baby aspirin, chest pain persisted. He was given 4 mg of morphine IV and 4 mg of Zofran IV in route, this did not have much affect on the pain. The pt has associated dyspnea and hand tingling but no sweating or nausea. Symptoms occurred about 15 minutes after eating lunch. he does have a history of coronary stenting.x4 4 placed in 2013. Lately, he has been in baseline health. No cough, cold or congestion. No recent chest pain or dyspnea on exertion. He typically walks 3 or so miles several times a week without difficulty. Allergies Allergy/AdvReac Type Severity Reaction Status Date / Time Penicillins Allergy Intermediate RASH;HIVES Verified 09/08/21 08:26 Sulfa (Sulfonamide Allergy Intermediate RASH;HIVES Verified 09/08/21 08:26 Antibiotics) Home Medications Medication Instructions Recorded Confirmed Type aspirin 81 mg tablet,delayed 81 mg PO HS 10/17/18 09/08/21 History release pantoprazole 40 mg tablet,delayed 40 mg PO QAM 10/17/18 09/08/21 History release buspirone 10 mg tablet 5 mg PO QAM 05/15/19 09/08/21 History coenzyme Q10 100 mg capsule 100 mg PO QAM 08/07/20 09/08/21 History (CoQ-10) omeprazole 20 mg tablet,delayed 20 mg PO PM 08/07/20 09/08/21 History release tramadol 50 mg tablet 50 mg PO BID PRN Pain 08/07/20 09/08/21 History hydrochlorothiazide 25 mg tablet 25 mg PO DAILY 04/28/21 09/08/21 History lisinopril 40 mg tablet 40 mg PO HS 04/28/21 09/08/21 History gabapentin 300 mg capsule 300 mg PO QAM 08/16/22 08/16/22 History gabapentin 300 mg capsule 600 mg PO QPM 08/16/22 08/16/22 History rosuvastatin 5 mg tablet 5 mg PO QPM 08/16/22 08/16/22 History Past Med/Surg History Medical History (Updated 08/16/22 @ 16:06 by Quinn Bedolla MD) BPH (benign prostatic hyperplasia) Cardiac murmur as child Chronic back pain Depression GERD (gastroesophageal reflux disease) Heart disease Herniated cervical disc HTN (hypertension) Sleep apnea "borderline" no machine yet Surgical History History of colonoscopy History of discectomy lumbar> 2011 History of esophagogastroduodenoscopy (EGD) History of heart artery stent 4 in 2013 History of tooth extraction Hx of cardiac cath 2013 with 4 stents, 2017 at [facility] no stents Family History Father Diabetes Social History Smoking Status: Never smoker Second Hand Exposure: No; Hx Alcohol Use: No Hx Substance Use: No Preferred Language: German Communication Ability: Effective Assistant Property Manager Required: No Beliefs That Will Affect Care: None marital status: Current Living Situation: Spouse current occupational status: employed Feels Safe at Home: Yes Assistive Devices: Oxygen - Continuous Review of Systems Review of Systems: Mild distress and fatigue no headache, no visual changes no speech or swallowing issues Exertional chest pain, substernal pressure without radiation Associated shortness of breath, without cough or wheezes no abdominal pain, nausea or vomiting, diarrhea or constipation no dysuria, hematuria or frequency no focal joint pain or swelling no back pain, CVA tenderness or radicular pain no bruising, bleeding or rashes no focal signs of weakness or numbness or altered sensation no complaints of anxiety or depression.. Physical Exam Physical Exam: The patient appeared well nourished and normally developed. Vital signs as documented. Head exam is normocephalic atraumatic Neck is without JVD, thyromegaly, or carotid bruits. Lungs are clear to auscultation, no focal loss of breath sounds Cardiac exam, Rhythm is regular.. No murmurs, rubs or gallops. There is no reproducible pain to examination of his chest wall musculature Abdominal exam reveals normal bowel sounds, soft non tender, no masses Extremities are nonedematous and both pedal pulses are present Neurologic exam is alert and oriented, no focal loss of strength or sensation Skin is without bruises or rashes Psychologically is without concerns for anxiety or depression.. Results & Data Results & Data ([facility]) Vital Signs (Past 12 Hours) Vital Signs Temp Pulse Pulse Resp BP BP Pulse Ox 08/16/22 14:23 60 18 97 08/16/22 14:23 98.6 F 60 18 123/81 97 08/16/22 14:17 98.1 F 60 18 123/81 97 O2 Del Method 08/16/22 14:23 Room Air 08/16/22 14:23 Room Air 08/16/22 14:17 Room Air Diagnostic Findings Chest x-ray is unremarkable ECG Additional Comments: Normal sinus rhythm without ST or T wave changes PG Care Time/CCT Total # of Minutes Spent Total Time Spent with Patient: Total time spent is greater than 50% in coordination of care (as documented) at patient's floor/unit and/or counseling patient: Coding Level of Care Code INT OBSERVATION CARE 70M LVL 3 Diagnoses Chest pain R07.9 GERD (gastroesophageal reflux disease) K21.9 Esophagitis presence: esophagitis presence not specified BPH (benign prostatic hyperplasia) N40.0 Depression F32.9 Cervical radiculopathy M54.12 DVT prophylaxis Z29.9 (1) GERD (gastroesophageal reflux disease) Esophagitis presence: esophagitis presence not specified Qualified Code(s): K21.9 - Gastro-esophageal reflux disease without esophagitis
--- NOTE | 2022-08-16 15:35 | Hospitalist Progress Note ---
Date of Service August 16, 2022 Results & Data Results & Data ([facility]) Vital Signs (Past 12 Hours) Vital Signs Temp Pulse Pulse Resp BP BP Pulse Ox 08/16/22 14:23 60 18 97 08/16/22 14:23 98.6 F 60 18 123/81 97 08/16/22 14:17 98.1 F 60 18 123/81 97 O2 Del Method 08/16/22 14:23 Room Air 08/16/22 14:23 Room Air 08/16/22 14:17 Room Air PG Care Time/CCT Total # of Minutes Spent Total Time Spent with Patient: Total time spent is greater than 50% in coordination of care (as documented) at patient's floor/unit and/or counseling patient: Coding
[2022-08-16] MEDS ORDERED: traMADol HCL 50 MG TABLET PO PRN (18:56)
[2022-08-16] MEDS ORDERED: ALUMINUM/MAGNESIUM SUSP 30 ML UDC PO PRN (18:56)
[2022-08-16] MEDS ORDERED: ONDANSETRON INJ 2 MG/ML 2 ML VIAL IV PRN (18:56)
[2022-08-16] MEDS ORDERED: NITROGLYCERIN SL 0.4 MG/TAB TAB SL PRN (18:56)
[2022-08-16] MEDS ORDERED: MoRPHine SULFATE 2 MG/ML CARP IV PRN (18:56)
[2022-08-16] MEDS ORDERED: ACETAMINOPHEN 325 MG TAB PO PRN (18:56)
--- NOTE | 2022-08-16 19:45 | Communication Note ---
Date of Service: August 16, 2022 I saw the patient in the ED. Performed HPI and physical exam. Discussed plan with attending physician. Please refer to my attending's note for more information on the patient. Resident Activity Tracking Resident Involvement: Resident Care Provided Care Provided: Adult ED
[2022-08-16] MEDS: HEPARIN SOD 5,000 UNIT/0.5 ML VIAL SQ SCH (20:11)
[2022-08-16] MEDS ORDERED: ROSUVASTATIN CALCIUM 5 MG TAB PO SCH (21:00)
[2022-08-16] MEDS ORDERED: GABAPENTIN 300 MG CAP PO SCH (21:00)
[2022-08-16] MEDS ORDERED: ASPIRIN 81 MG ECTAB PO SCH (21:00)
[2022-08-16] MEDS ORDERED: lisinopril 10 MG TAB PO SCH (21:00)
--- NOTE | 2022-08-17 06:08 | Electrocardiogram Report ---
Test Reason : Blood Pressure : / mmHG Vent. Rate : 063 BPM Atrial Rate : 063 BPM P-R Int : 134 ms QRS Dur : 108 ms QT Int : 406 ms P-R-T Axes : 060 025 045 degrees QTc Int : 415 ms Normal sinus rhythm with sinus arrhythmia Nonspecific T wave abnormality Abnormal ECG When compared with ECG of 29-APR-2021 04:51, No significant change was found Confirmed by Junior Torres ([id number]) on 08/17/2022 6:08:26 AM Referred By: REFERRED SELF Confirmed By:Junior Torres
[2022-08-17 06:23] LABS: Hematocrit (blood only) 44.1 % (40.1-51.0); Hemoglobin 14.9 g/dl (14.0-18.0); Mean Corpuscular Hemoglobin 29.2 pg (25.0-34.0); Mean Corpuscular Hgb Conc 33.8 g/dL (32.0-36.0); Mean Corpuscular Volume 86.3 fL (80.0-100.0); Mean Platelet Volume 9.6 fL (9.4-12.4); Platelet Count 149 K/uL (130-400); RDW Coefficient of Variation 13.2 % (11.5-14.5); RDW Standard Deviation 41.2 fL (36.4-46.3); Red Blood Count 5.11 M/uL (4.63-6.08); White Blood Count 5.58 K/ul (4.8-10.8)
[2022-08-17 06:51] LABS: BUN Creatinine Ratio 10.9 (10-20); Calcium 8.9 mg/dl (8.5-10.1); Est GFR (African American) 72.5 ml/min; Est GFR (Non-African American) 62.6 ml/min; Potassium 3.5 mmol/L (3.5-5.1); Troponin I High Sensitivity 4.1 pg/ml (0-20)
[2022-08-17] MEDS: HEPARIN SOD 5,000 UNIT/0.5 ML VIAL SQ SCH (07:55)
[2022-08-17] MEDS ORDERED: GABAPENTIN 300 MG CAP PO SCH (09:00)
[2022-08-17] MEDS ORDERED: hydroCHLOROthiazide 25 MG TAB PO SCH (09:00)
[2022-08-17] MEDS ORDERED: busPIRone 5 MG TAB PO SCH (09:00)
[2022-08-17] MEDS ORDERED: PANTOprazole 40 MG TAB PO SCH (09:00)
[2022-08-17 11:30] VITALS: BP 113/73; PULSE 47; TEMP 98.1; O2SAT 96
--- NOTE | 2022-08-17 12:04 | XCELERA ---
[id number]
--- NOTE | 2022-08-17 23:08 | Electrocardiogram Report ---
Test Reason : Blood Pressure : / mmHG Vent. Rate : 047 BPM Atrial Rate : 047 BPM P-R Int : 132 ms QRS Dur : 108 ms QT Int : 452 ms P-R-T Axes : 067 024 033 degrees QTc Int : 400 ms Poor data quality, interpretation may be adversely affected Sinus bradycardia Otherwise normal ECG When compared with ECG of 16-AUG-2022 14:10, Nonspecific T wave abnormality no longer evident in Lateral leads Confirmed by Junior Torres ([id number]) on 08/17/2022 11:07:36 PM Referred By: REFERRED SELF Confirmed By:Junior Torres
--- NOTE | 2022-08-20 22:56 | Discharge Summary ---
Date of Service August 17, 2022 Admission HPI Per Admitting Provider 57-year-old male who presents to the ER with central chest pain and numbness in both arms. The pain started just prior to arrival while the patient was walking at work. He took 2 of his own nitroglycerin without relief. EMS was summoned. He was given 1 nitroglycerin by EMS and 4 baby aspirin, chest pain persisted. He was given 4 mg of morphine IV and 4 mg of Zofran IV in route, this did not have much affect on the pain. The pt has associated dyspnea and hand tingling but no sweating or nausea. Symptoms occurred about 15 minutes after eating lunch. he does have a history of coronary stenting.x4 4 placed in 2013. Lately, he has been in baseline health. No cough, cold or congestion. No recent chest pain or dyspnea on exertion. He typically walks 3 or so miles several times a week without difficu lty. Principal Diagnosis chest pain Discharge Exam The patient appeared well nourished and normally developed. Vital signs as documented. Head exam is normocephalic atraumatic Neck is without JVD, thyromegaly, or carotid bruits. Lungs are clear to auscultation, no focal loss of breath sounds Cardiac exam, Rhythm is regular.. No murmurs, rubs or gallops. There is no reproducible pain to examination of his chest wall musculature Abdominal exam reveals normal bowel sounds, soft non tender, no masses Extremities are nonedematous and both pedal pulses are present Neurologic exam is alert and oriented, no focal loss of strength or sensation Skin is without bruises or rashes Psychologically is without concerns for anxiety or depression.. Discharge Data Allergies Allergy/AdvReac Type Severity Reaction Status Date / Time Penicillins Allergy Intermediate RASH;HIVES Verified 08/16/22 16:07 Sulfa (Sulfonamide Allergy Intermediate RASH;HIVES Verified 08/16/22 16:07 Antibiotics) Consultations 08/16/22 15:26 ED Decision to Admit Stat Hospital Course (1) Chest pain: Patient with exertional chest pain with known coronary disease status postcardiac stents in 2013. Initial work-up is unrevealing patient will be observed have serial troponins and of stress testing on 08/17/2022 as long as enzymes trend normal and his pain does not recur and there are no EKG changes in the morning Be maintained on aspirin 81, Crestor, lisinopril and hydrochlorothiazide. May consider initiating metoprolol if pain recurs pts did have stress echo april 2012 that was negative As stress test was negative, patient can be discharged as he is considered low risk for developing an acute coronary syndrome. May consider adding CCB if symptoms return for either possible esophageal spasm or vasospastic angina (2) GERD (gastroesophageal reflux disease): Patient given a GI cocktail in the emergency department. He does take a PPI this to be continued (3) BPH (benign prostatic hyperplasia): Patient currently without lower urinary tract symptoms (4) Depression: Patient takes BuSpar for anxiety (5) Cervical radiculopathy: Patient recently started on Neurontin 300 morning 300 midday and 600 at bedtime (6) DVT prophylaxis: Heparin used for DVT prevention Total Time Total Time Spent Total Time Spent (In Minutes): 40 Discharge Plan Discharge Items Patient Disposition: Home - Self-Care Reason For Visit: CARDIAC ASSESSMENT Discharge Diagnosis: Cardiac Assessment Condition on Discharge: Good Activity: Resume your previous activity Non-emergency contact: Primary Care Provider Call non-emergency contact if: you have any medication questions Follow-up/Referrals: Wale Aguayo DO [Primary Care Provider] - Diet: Regular Addtl Attending Provider Instructions: You were evaluated for cardiac pain, to determine your risk for a heart attack. Thankfully, you were quickly ruled out for a heart attack as your heart proteins were negative. We did a stress test to see if you were high risk for a heart attack. This was negative, so you are considered low risk. Will recommend followup with your PCP. Pending Studies at Discharge: No Stand-Alone Forms: My [facility], Smoking Cessation Medications and DC Order Prescriptions: Continued buspirone 10 mg tablet 10 mg PO QAM tramadol 50 mg Tablet 50 mg PO BID PRN (Reason: Pain) coenzyme Q10 [CoQ-10] 100 mg Capsule 100 mg PO QAM omeprazole 20 mg Tablet,Delayed Release (Dr/Ec) 20 mg PO PM aspirin 81 mg Tablet,Delayed Release (Dr/Ec) 81 mg PO HS pantoprazole 40 mg tablet,delayed release (DR/EC) 40 mg PO QAM hydrochlorothiazide 25 mg tablet 25 mg PO DAILY gabapentin 300 mg capsule 300 mg PO QAM gabapentin 300 mg capsule 600 mg PO QPM rosuvastatin 5 mg tablet 5 mg PO QPM lisinopril 30 mg tablet 30 mg PO HS Discharge Orders: Discharge Order (Routine); Ordered 08/17/22 Ordered By: Thanh Talley Admission Data Admit Date/Time: 08/16/22 15:44 Attending Provider: Thanh Talley Admit Provider: Quinn Bedolla Primary Care Provider: Wale Aguayo Other Providers: Quinn Bedolla Other Interventions: Discharge Summary Assessment (RN) Last Done: 08/17/22 14:46 Coding Level of Care Code 67947 OBS Care - Discharge Diagnoses Chest pain R07.9 GERD (gastroesophageal reflux disease) K21.9 Esophagitis presence: esophagitis presence not specified BPH (benign prostatic hyperplasia) N40.0 Depression F32.9 Cervical radiculopathy M54.12 DVT prophylaxis Z29.9
== END 2022-08-17 15:00 | disposition home or self-care (01) ==
LOC: ED 13:59 → 2S 13:59 → SUATTDRO 15:44 → 2S 17:50
DX: Z79.899 Other long term (current) drug therapy; M54.12 Radiculopathy, cervical region; Z88.2 Allergy status to sulfonamides; R07.9 Chest pain, unspecified; Z88.0 Allergy status to penicillin; Z79.82 Long term (current) use of aspirin